=== PATIENT | male | born 1995 | race Caucasian/White ===

== ENCOUNTER 2022-11-20 08:42 | Observation (INO) ==
[2022-11-20 11:37] LABS: INR 1.1 (0.9-1.1); Partial Thromboplastin Time 28.8 Seconds (21.0-31.0); Prothrombin Time 11.9 Seconds (9.0-12.0)
[2022-11-20 11:38] LABS: Chloride 104 mmol/L (98-107); Potassium 4.1 mmol/L (3.5-5.1); Sodium 138 mmol/L (136-145)
[2022-11-20 11:39] LABS: Anion Gap 6 (3-11); Blood Urea Nitrogen 19 mg/dl (6-23); Calcium 9.2 mg/dl (8.5-10.1); Carbon Dioxide 28 mmol/L (21-32); Est GFR (African American) 134.9 ml/min; Est GFR (Non-African American) 116.4 ml/min; Glucose 85 mg/dl (70-99(Fasting)); Magnesium 1.9 mg/dl (1.7-2.4); Phosphorus 3.1 mg/dl (2.5-4.9)
[2022-11-20 11:40] LABS: Alanine Aminotransferase 11 U/L (7-52); Albumin Globulin Ratio 1.3 (0.9-2); Albumin Level 4.4 gm/dl (3.4-5.0); Aspartate Aminotransferase 17 U/L (13-39); Bilirubin,Total 0.4 mg/dl (0.2-1.0); Globulin 3.4 gm/dl (2.5-4.0); Total Protein 7.8 gm/dl (6.0-8.3); Troponin I High Sensitivity 4.9 pg/ml (0-20)
[2022-11-20 11:41] LABS: Alkaline Phosphatase 45 U/L (34-104)
--- NOTE | 2022-11-20 11:49 | XRay Report ---
XR chest 1V portable CLINICAL HISTORY: Chest pain. COMPARISON STUDY: Chest CT August 15, 2022. FINDINGS: No pneumothorax or pleural effusion is present. No consolidation. No evidence for pulmonary edema. There are median sternotomy wires. There has been interval enlargement of the cardiac silhoue tte chest CT of August 15, 2022. IMPRESSION: 1. Interval enlargement of the cardiac silhouette since chest CT August 15, 2022. While this could b e due to cardiomegaly, a pericardial effusion cannot be excluded by radiography. 2. No evidence for pulmonary edema. ACT 112: Negative or not required by law. Electronically signed by: Filiberto Ribeiro M.D. 11/20/2022 10:06 AM
[2022-11-20 11:55] LABS: Basophils # (auto) 0.02 K/uL (0-0.2); Basophils % (auto) 0.5 %; Eosinophils # (auto) 0.03 K/uL (0-0.50); Eosinophils % (auto) 0.7 %; Hematocrit (blood only) 43.2 % (40.1-51.0); Hemoglobin 14.4 g/dl (14.0-18.0); Lymphocytes # (auto) 1.46 K/uL (1.2-3.4); Mean Corpuscular Hemoglobin 27.8 pg (25.0-34.0); Mean Corpuscular Hgb Conc 33.3 g/dL (32.0-36.0); Mean Corpuscular Volume 83.4 fL (80.0-100.0); Mean Platelet Volume 11.1 fL (9.4-12.4); Monocytes # (auto) 0.44 K/uL (0.24-0.82); Neutrophils # (auto) 2.47 K/uL (1.4-6.5); Neutrophils % (auto) 55.8 %; Platelet Count 180 K/uL (130-400); RDW Coefficient of Variation 13.2 % (11.5-14.5); RDW Standard Deviation 40.1 fL (36.4-46.3); Red Blood Count 5.18 M/uL (4.63-6.08); White Blood Count 4.42 K/ul (4.8-10.8)
[2022-11-20 12:14] LABS: C Reactive Protein 0.78 mg/dl (0-0.5)
--- NOTE | 2022-11-20 12:40 | Emergency Department Note ---
Impression & Plan Pericardial effusion, Near syncope, Status post ascending aortic aneurysm repair ED Provider Note NAME: CHARLENE MCMAHON AGE: 27 SEX: M ARRIVES VIA: Walk-In INFORMANT: Patient ED PROVIDER(S): Ulises Peck MD CHIEF COMPLAINT: Syncope, pericardial effusion, referred. PLAN: Disposition: Admit MEDICAL DECISION MAKING: The patient is a pleasant 27-year-old gentleman with a past medical history of aortic root replacement and repair August 07, 2022 for massive ascending aortic aneurysm who presents to the emergency department referred from his [facility] cardiology office, by Dr. Soriano, after having outpatient echo demonstrating large circumferential pericardial effusion greater than 2 cm with hemodynamic significance. The patient's echo was ordered in the setting of the patient having intermittent episodes of sharp left shoulder pain and occasional pain with inspiration and did have a brief near syncopal episode few days ago. He denies any recent cough, congestion, fevers, chills, GI or symptoms. He denies feeling dizzy today. He denies chest pain at this time. Of note, the patient arrives to the emergency department during an unscheduled [facility] outage. On arrival the patient is no acute distress, afebrile with stable vital signs. He has no JVD. EKG without overt acute ischemia. Chest x-ray demonstrates interval cardiomegaly compared to August 15, 2022. I did perform a limited bedside cardiac ultrasound and circumferential pericardial effusion with hemodynamic significance is seen. No overt RV diastolic collapse. Lab work via downtime process pending. Case was discussed with Dr. Wetzel, interventional cardiology on-call who evaluated the patient at the bedside and reviewed limited ED US images. Also, discussed the case with Dr. Lopez who was made aware of the patient's case by Dr. Soriano and discussed plan with Dr. Wetzel. We will proceed with admission to hospitalist service for further management and likely drainage of pericardial effusion in the Managing Manager today. Patient agrees with plan. Case was discussed with Diamond MAJOR with Dr. Saeed, [facility] hospitalist, who will evaluate the patient for admission. WBC 4.4K nonspecific. H/H and platelets within normal limits. Chemistry withou t metabolic acidosis. Electrolytes and LFTs without significant abnormality. High-sensitivity troponin 4.9, within normal limits. ESR and CRP ordered by admitting team mildly elevated at 34 and 70, respectively. Lyme screen was positive for IgM antibody. Further management per admitting team. Triage Nursing notes reviewed and agree them. Prior/Outside medical records reviewed Vital Signs: reviewed Differential diagnosis: Vasovagal event, dehydration, infection, hypoglycemia, electrolyte abnormalities, cardiac sources, intracerebral event, pulmonary embolism, seizure, toxicologic, neurologic, as well as other pathologies. ER treatment provided: See below. Diagnostics interpreted by me: ECG: Normal sinus rhythm, 71 bpm, no ectopy, incomplete right bundle branch block, specific abnormality, no overt ST elevation or depression, QTC 434, QRS 108. Cardiac Monitoring: An order for continuous cardiac monitoring was placed and demonstrated Normal sinus rhythm, 71 bpm, no ectopy. Laboratory studies: See below Imaging studies: See below Consultation(s): Dr. Wetzel, [place] interventional cardiology on-call. Dr. Lopez, [facility] cardiology on-call. Diamond Mccray [facility] PEDRITO with Dr. Saeed, [facility] hospitalist HPI: The patient is a pleasant 27-year-old gentleman with a past medical history of aortic root replacement and repair August 07, 2022 for massive ascending aortic aneurysm who presents to the emergency department referred from his [facility] cardiology office, by Dr. Soriano, after having outpatient echo demonstrating large circumferential pericardial effusion greater than 2 cm with hemodynamic significance. The patient's echo was ordered in the setting of the patient having intermittent episodes of sharp left shoulder pain and occasional pain with inspiration and did have a brief near syncopal episode few days ago. He denies any recent cough, congestion, fevers, chills, GI or symptoms. He denies feeling dizzy today. He denies chest pain at this time. ROS: See above HPI for pertinent positives & negatives. A total of 10 systems reviewed and were otherwise negative. VITALS:See Below PHYSICAL EXAMINATION: GENERAL: Awake, alert, well-appearing, in no distress HENT: Normocephalic, atraumatic. Oropharynx unremarkable. EYES: Normal conjunctiva. Sclera non-icteric. NECK: Supple. No nuchal rigidity. FROM. No JVD. RESPIRATORY: Clear to auscultation. CARDIAC: Regular rate, normal rhythm. Extremities warm and well perfused. Pulses equal. ABDOMEN: Soft, non-distended. No tenderness to palpation. No rebound or guarding. No masses. RECTAL: Deferred. MUSCULOSKELETAL: Chest examination reveals no tenderness. The back is symmetrical on inspection without obvious abnormality. There is no CVA tendernes s to palpation. No joint edema. LOWER EXTREMITIES: Calves are equal size bilaterally and non-tender. No edema. No discoloration. NEURO: Normal sensorium. No sensory or motor deficits noted. SKIN: No rash or jaundice noted. Ulises Peck MD Past Med/Surg History Medical History Aneurysm of thoracic aorta Surgical History Status post ascending aortic aneurysm repair Aortic valve sparing aortic root replacement and repair (08/07/2022) [place] [facility] [place] 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 Other Information That Helps Us Care for You: No Feels Safe at Home: Yes Safety Concerns: Feels Safe At This Time Assistive Devices: None Allergies Allergies Allergy/AdvReac Type Severity Reaction Status Date / Time No Known Allergies Allergy Unverified 11/20/22 11:31 Home Meds Home Medications Medication Instructions Recorded Confirmed acetaminophen 500 mg tablet 1,000 mg PO Q8 PRN Pain 11/20/22 11/20/22 (Tylenol Extra Strength) aspirin 81 mg chewable tablet 81 mg PO DAILY 11/20/22 11/20/22 ferrous sulfate 325 mg (65 mg 325 mg PO DAILY 11/20/22 11/20/22 iron) tablet (iron) metoprolol succinate 25 mg 12.5 mg PO DAILY 11/20/22 11/20/22 tablet,extended release 24 hr Results & Data (ED) Laboratory Data Attestation: I reviewed the patient's lab results. 11/20/22 09:40 11/20/22 09:40 Lab Results 11/20/22 11/20/22 11/20/22 Range/Units 09:40 09:40 09:40 WBC 4.42 L (4.8-10.8) K/ul RBC 5.18 (4.63-6.08) M/uL Hgb 14.4 (14.0-18.0) g/dl Hct 43.2 (40.1-51.0) % MCV 83.4 (80.0-100.0) fL MCH 27.8 (25.0-34.0) pg MCHC 33.3 (32.0-36.0) g/dL RDW Std Deviation 40.1 (36.4-46.3) fL RDW Coeff of Juany 13.2 (11.5-14.5) % Plt Count 180 (130-400) K/uL MPV 11.1 (9.4-12.4) fL Immature Gran % (Auto) 0.0 % Neut % (Auto) 55.8 % Lymph % (Auto) 33.0 % [place] % (Auto) 10.0 % Eos % (Auto) 0.7 % Baso % (Auto) 0.5 % Neut # (Auto) 2.47 (1.4-6.5) K/uL Lymph # (Auto) 1.46 (1.2-3.4) K/uL [place] # (Auto) 0.44 (0.24-0.82) K/uL Eos # (Auto) 0.03 (0-0.50) K/uL Baso # (Auto) 0.02 (0-0.2) K/uL Immature Gran # (Auto) 0.00 (0.00-0.02) K/uL ESR (0-15) mm/hr PT 11.9 (9.0-12.0) Seconds INR 1.1 (0.9-1.1) APTT 28.8 (21.0-31.0) Seconds PTT Ratio 1.0 Sodium 138 (136-145) mmol/L Potassium 4.1 (3.5-5.1) mmol/L Chloride 104 (98-107) mmol/L Carbon Dioxide 28 (21-32) mmol/L Anion Gap 6 (3-11) BUN 19 (6-23) mg/dl Creatinine 0.89 (0.6-1.4) mg/dl Est Cr Clr Drug Dosing Not Reportable Est GFR ( Amer) 134.9 ml/min Est GFR (Non-Af Amer) 116.4 ml/min BUN/Creatinine Ratio 21.0 H (10-20) Glucose 85 (70-99(Fasting)) mg/dl Calcium 9.2 (8.5-10.1) mg/dl Phosphorus 3.1 (2.5-4.9) mg/dl Magnesium 1.9 (1.7-2.4) mg/dl Total Bilirubin 0.4 (0.2-1.0) mg/dl AST 17 (13-39) U/L ALT 11 (7-52) U/L Alkaline Phosphatase 45 (34-104) U/L Troponin I High Sens 4.9 (0-20) pg/ml C-Reactive Protein 0.78 H (0-0.5) mg/dl Total Protein 7.8 (6.0-8.3) gm/dl Albumin 4.4 (3.4-5.0) gm/dl Globulin 3.4 (2.5-4.0) gm/dl Albumin/Globulin Ratio 1.3 (0.9-2) Lyme Disease IgG Ab (Negative) Lyme Disease IgM Ab (Negative) SARS-CoV-2, RNA, NAAT (NEGATIVE) 11/20/22 11/20/22 11/20/22 Range/Units 09:40 10:52 11:28 WBC (4.8-10.8) K/ul RBC (4.63-6.08) M/uL Hgb (14.0-18.0) g/dl Hct (40.1-51.0) % MCV (80.0-100.0) fL MCH (25.0-34.0) pg MCHC (32.0-36.0) g/dL RDW Std Deviation (36.4-46.3) fL RDW Coeff of Juany (11.5-14.5) % Plt Count (130-400) K/uL MPV (9.4-12.4) fL Immature Gran % (Auto) % Neut % (Auto) % Lymph % (Auto) % [place] % (Auto) % Eos % (Auto) % Baso % (Auto) % Neut # (Auto) (1.4-6.5) K/uL Lymph # (Auto) (1.2-3.4) K/uL [place] # (Auto) (0.24-0.82) K/uL Eos # (Auto) (0-0.50) K/uL Baso # (Auto) (0-0.2) K/uL Immature Gran # (Auto) (0.00-0.02) K/uL ESR 34 H (0-15) mm/hr PT (9.0-12.0) Seconds INR (0.9-1.1) APTT (21.0-31.0) Seconds PTT Ratio Sodium (136-145) mmol/L Potassium (3.5-5.1) mmol/L Chloride (98-107) mmol/L Carbon Dioxide (21-32) mmol/L Anion Gap (3-11) BUN (6-23) mg/dl Creatinine (0.6-1.4) mg/dl Est Cr Clr Drug Dosing Est GFR ( Amer) ml/min Est GFR (Non-Af Amer) ml/min BUN/Creatinine Ratio (10-20) Glucose (70-99(Fasting)) mg/dl Calcium (8.5-10.1) mg/dl Phosphorus (2.5-4.9) mg/dl Magnesium (1.7-2.4) mg/dl Total Bilirubin (0.2-1.0) mg/dl AST (13-39) U/L ALT (7-52) U/L Alkaline Phosphatase (34-104) U/L Troponin I High Sens (0-20) pg/ml C-Reactive Protein (0-0.5) mg/dl Total Protein (6.0-8.3) gm/dl Albumin (3.4-5.0) gm/dl Globulin (2.5-4.0) gm/dl Albumin/Globulin Ratio (0.9-2) Lyme Disease IgG Ab Negative (Negative) Lyme Disease IgM Ab Positive A (Negative) SARS-CoV-2, RNA, NAAT NEGATIVE (NEGATIVE) Administered Medications Acetaminophen (Acetaminophen 500 Mg Tab) 1,000 mg PO Q8H PRN PRN Reason: mild pain Stop: 12/20/22 15:37 Last Admin: 11/20/22 15:43 Dose: 1,000 mg Documented By: TNB Imaging Data Radiologist's Impression: Chest X-Ray 11/20/22 00:00 XR chest 1V portable CLINICAL HISTORY: Chest pain. COMPARISON STUDY: Chest CT August 15, 2022. FINDINGS: No pneumothorax or pleural effusion is present. No consolidation. No evidence for pulmonary edema. There are median sternotomy wires. There has been interval enlargement of the cardiac silhouette chest CT of August 15, 2022. IMPRESSION: 1. Interval enlargement of the cardiac silhouette since chest CT August 15, 2022. While this could be due to cardiomegaly, a pericardial effusion cannot be excluded by radiography. 2. No evidence for pulmonary edema. ACT 112: Negative or not required by law. Electronically signed by: Filiberto Ribeiro M.D. 11/20/2022 10:06 AM Discharge Plan Visit Data Chief Complaint: Referred by Doctor Stated Complaint: REF BY BHARATER, FLUID AROUND HEART ED Provider: Ulises Peck Discharge Problem: Pericardial effusion, Near syncope, Status post ascending aortic aneurysm repair Patient Disposition: Admitted As Inpatient Discharge Instructions Interventions: ED Discharge Assessment Last Done: 11/20/22 13:50
--- NOTE | 2022-11-20 12:59 | History & Physical Report ---
Date of Service November 20, 2022 Assessment & Plan (1) Pericardial effusion: (2) Status post ascending aortic aneurysm repair: Plan: Admit to telemetry Patient presenting by referral of outpatient cardiology after echocardiogram showed a large circumferential pericardial effusion greater than 2 cm with hemodynamic significance. In the ED, patient is hemodynamically stable. History of ascending aortic aneurysm s/p sparing aortic root replacement and repair on 08/07/2022 Mildly elevated ESR and CRP, labs otherwise unremarkable Patient reports cold-like symptoms a few days ago, ? Viral contribution. Will also check Lyme titer Case discussed with Dr. Lopez who [place] the [place] [facility] [place] PROPHYLAXIS SCDs I spent a total of 45 minutes coordinating, documenting, and providing care for this patient excluding time spent in the performance of separately billed services. This included personally reviewing all current laboratories and imaging studies, medication reconciliation, outpatient chart review, and discussion with specialists. History of Present Illness Chief Complaint: Referred by cardiology for pericardial effusion Primary Care Provider: Lavelle Izquierdo MD 27-year-old male with PMH ascending aortic root aneurysm s/p aortic valve spa ring aortic root replacement and repair on 08/07/2022 who presents the ED by referral of outpatient cardiology for pericardial effusion. Patient reports that he has been doing well since his surgery. He has since returned to work. Patient reports cold-like symptoms a few weeks ago that have since resolved. Patient reports he has been having an intermittent dull left-sided chest pain. Denies any specific causative or alleviating factors. Reports that while he was at the gym last week, he had an episode where his heart was thumping for a few minutes. He reports a separate episode when he was standing talking to coworkers and he had a near syncopal event. Patient was referred for outpatient echocardiogram today that showed a large circumferential pericardial effusion greater than 2 cm with hemodynamic significance. Patient denies fevers and chills. No abdominal pain, nausea, vomiting, diarrhea. Denies urinary symptoms. In the ED, patient is hemodynamically stable. Labs show a mildly elevated CRP and ESR, otherwise unremarkable. Allergies Allergy/AdvReac Type Severity Reaction Status Date / Time No Known Allergies Allergy Unverified 11/20/22 11:31 Home Medications Medication Instructions Recorded Confirmed Type acetaminophen 500 mg tablet 1,000 mg PO Q8 PRN Pain 11/20/22 11/20/22 History (Tylenol Extra Strength) aspirin 81 mg chewable tablet 81 mg PO DAILY 11/20/22 11/20/22 History ferrous sulfate 325 mg (65 mg 325 mg PO DAILY 11/20/22 11/20/22 History iron) tablet (iron) metoprolol succinate 25 mg 12.5 mg PO DAILY 11/20/22 11/20/22 History tablet,extended release 24 hr Past Med/Surg History Medical History Aneurysm of thoracic aorta Surgical History Status post ascending aortic aneurysm repair [place]ortic valve [place] [facility] 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 Other Information That Helps Us Care for You: No Feels Safe at Home: Yes Safety Concerns: Feels Safe At This Time Assistive Devices: None Review of Systems Review of Systems: ROS per HPI, all other systems reviewed and negative Physical Exam Constitutional: WD/WN, vitals as above Eyes: PERRL, conjunctivae normal, anicteric sclerae ENMT: external ear and nose normal, oropharynx normal Respiratory: normal respiratory effort, lungs clear to auscultation Cardiovascular: Rate/Rhythm: regular rate and regular rhythm Vessels: normal peripheral pulses Extremities: no edema Gastrointestinal (Abdomen): normal bowel sounds, soft, nontender, no hepatosplenomegaly Musculoskeletal: no cyanosis or clubbing, extremities motor strength 5/5 Skin: no rashes, warm and dry Neurologic: PERRL, EOMI, accommodation nl, no face palsy, no dysarthria Psychiatric: A+Ox3, euthymic affect Results & Data Results & Data ([facility]) Laboratory Results Short CBC 11/20/22 Range/Units 09:40 WBC 4.42 L (4.8-10.8) K/ul Hgb 14.4 (14.0-18.0) g/dl Hct 43.2 (40.1-51.0) % Plt Count 180 (130-400) K/uL BMP 11/20/22 09:40 Sodium 138 Potassium 4.1 Chloride 104 Carbon Dioxide 28 BUN 19 Creatinine 0.89 Glucose 85 Calcium 9.2 Liver Function 11/20/22 Range/Units 09:40 Total Bilirubin 0.4 (0.2-1.0) mg/dl AST 17 (13-39) U/L ALT 11 (7-52) U/L Alkaline Phosphatase 45 (34-104) U/L Albumin 4.4 (3.4-5.0) gm/dl Diagnostic Findings Chest X-Ray 11/20/22 00:00 XR chest 1V portable CLINICAL HISTORY: Chest pain. COMPARISON STUDY: Chest CT August 15, 2022. FINDINGS: No pneumothorax or pleural effusion is present. No consolidation. No evidence for pulmonary edema. There are median sternotomy wires. There has been interval enlargement of the cardiac silhouette chest CT of August 15, 2022. IMPRESSION: 1. Interval enlargement of the cardiac silhouette since chest CT August 15, 2022. While this could be due to cardiomegaly, a pericardial effusion cannot be excluded by radiography. 2. No evidence for pulmonary edema. ACT 112: Negative or not required by law. Electronically signed by: Filiberto Ribeiro M.D. 11/20/2022 10:06 AM Code Status & VTE Plan VTE Prophylaxis Plan VTE Prophylaxis will be ordered: Yes Supervising Physician Co-Signing Physician Notes Attending addendum: The patient was seen and examined in the emergency room. He has had a syncopal episode on the other day and feels dizzy with ambulation He has a history of ascending aortic aneurysm repair on 08/07/2022 Was sent in from cardiology office with a large medical effusion without significant hemodynamic compromise Denies any chest pain, palpitation or shortness of breath On examination Lying in bed comfortably Hemodynamically stable Chest-clear to auscultate bilateral Heart-S1-S2, regular no murmur appreciated Abdomen-benign Extremities-negative for any edema He is blood counts, EKG and imaging studies reviewed Has significant pericardial effusion with history of ascending aortic aneurysm repair and remains hemodynamically stable Was evaluated by hot stick man in the emergency room He will need to be transferred to tertiary care center tomorrow for pericardiocentesis Agree with assessment and plan as outlined above by Diamond Saeed
[2022-11-20] MEDS ORDERED: ACETAMINOPHEN 325 MG TAB PO PRN (13:49)
[2022-11-20 15:20] LABS: Lyme Ab IgG w/WB Rflx Negative (Negative)
[2022-11-20 15:23] LABS: Lyme Ab IgM w/WB Rflx Positive (Negative)
--- NOTE | 2022-11-20 15:27 | Cardiology Consultation ---
Date of Consultation November 20, 2022 Assessment & Plan (1) Status post ascending aortic aneurysm repair: (2) Pericardial effusion: Plan I spoke with interventional cardiology here at [facility] and they would prefer the patient be transferred to [facility] where he had his original surgery to have the pericardial centesis completed. Those arrangements have been made and we are waiting on a bed. To his current medical regimen and I have added ibuprofen, colchicine and a PPI. Lyme's titer was drawn and is pending. Otherwise the patient is clinically stable. History of Present Illness Attending Physician: Clifford Saeed MD History of Present Illness This is a 27-year-old male patient who in July of last year was having some chest discomfort. An exercise stress echocardiogram was scheduled. When the patient came in for the study the resting echocardiogram indicated an aneurysm of the aortic root and ascending aorta with aortic insufficiency. The aortic aneurysm measured 7.4 cm. The patient was sent immediately to [facility] where he underwent emergent OHS for repair of his thoracic aneurysm while sparing the aortic valve. 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 Over the past 10 days to 2 weeks he describes a viral type illness that he could not shake. He was having some mild chest discomfort and an echocardiogram was ordered. That study was completed early this morning and shows a markedly enlarged pericardial effusion without tamponade. He was referred for admission and pericardial centesis. Allergies Allergy/AdvReac Type Severity Reaction Status Date / Time No Known Allergies Allergy Unverified 11/20/22 11:31 Home Medications Medication Instructions Recorded Confirmed Type acetaminophen 500 mg tablet 1,000 mg PO Q8 PRN Pain 11/20/22 11/20/22 History (Tylenol Extra Strength) aspirin 81 mg chewable tablet 81 mg PO DAILY 11/20/22 11/20/22 History colchicine 0.6 mg tablet (Colcrys) 0.6 mg PO BID #1 tab 11/20/22 Rx doxycycline hyclate 100 mg capsule 100 mg PO BID #1 cap 11/20/22 Rx ferrous sulfate 325 mg (65 mg 325 mg PO DAILY 11/20/22 11/20/22 History iron) tablet (iron) ibuprofen 200 mg tablet 400 mg PO TID #1 tab 11/20/22 Rx metoprolol succinate 25 mg 12.5 mg PO DAILY 11/20/22 11/20/22 History tablet,extended release 24 hr pantoprazole 40 mg tablet,delayed 40 mg PO QAM #1 tab 11/20/22 Rx release Patient History Medical History Aneurysm of thoracic aorta Surgical History Status post ascending aortic aneurysm repair Aortic valve sparing aortic root replacement and repair (08/07/2022) at [facility]. 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 All other 10 point review of systems are negative. Physical Exam Physical Exam: General: no acute distress and stated age Head: normocephalic, no masses, lesions, tenderness or abnormalities Eyes: conjunctiva are pink and non-injected, sclera clear Neck: supple, no adenopathy, no bruits, normal jugular venous pulse, no hepatojugular reflux Chest: normal shape and normal respiratory effort Lungs: clear to auscultation and percussion Cardiac Exam: - regular rate & rhythm, no murmurs gallops or rubs - normal S1, normal S2 Pulses: 2(+) throughout Abdomen: abdomen soft, non-tender, no abnormal masses and no hepatosplenomegaly Musculoskeletal: no gait disturbance, no joint inflammation, no deforming arthritis Extremities: no edema and no cyanosis Neuro: grossly normal exam Results & Data ([facility]) Vital Signs (Past 12 Hours) Vital Signs Temp Pulse Resp BP Pulse Ox O2 Del Method 11/20/22 13:34 36.6 C 68 20 122/86 99 Room Air Laboratory Results Laboratory Results - last 24 hr 11/20/22 11/20/22 11/20/22 09:40 09:40 09:40 WBC 4.42 L RBC 5.18 Hgb 14.4 Hct 43.2 MCV 83.4 MCH 27.8 MCHC 33.3 RDW Std Deviation 40.1 RDW Coeff of [place] 13.2 Plt Count 180 MPV 11.1 Immature Gran % (Auto) 0.0 Neut % (Auto) 55.8 Lymph % (Auto) 33.0 [place] % (Auto) 10.0 Eos % (Auto) 0.7 Baso % (Auto) 0.5 Neut # (Auto) 2.47 Lymph # (Auto) 1.46 [place] # (Auto) 0.44 Eos # (Auto) 0.03 Baso # (Auto) 0.02 Immature Gran # (Auto) 0.00 ESR PT 11.9 INR 1.1 APTT 28.8 PTT Ratio 1.0 Sodium 138 Potassium 4.1 Chloride 104 Carbon Dioxide 28 Anion Gap 6 BUN 19 Creatinine 0.89 Est Cr Clr Drug Dosing Not Reportable Est GFR ( Amer) 134.9 Est GFR (Non-Af Amer) 116.4 BUN/Creatinine Ratio 21.0 H Glucose 85 Calcium 9.2 Phosphorus 3.1 Magnesium 1.9 Total Bilirubin 0.4 AST 17 ALT 11 Alkaline Phosphatase 45 Troponin I High Sens 4.9 C-Reactive Protein 0.78 H Total Protein 7.8 Albumin 4.4 Globulin 3.4 Albumin/Globulin Ratio 1.3 Lyme Disease IgG Ab Lyme IgG (Western Blot) Lyme IgG 18 kDa Band Lyme IgG 23 kDa Band Lyme IgG 28 kDa Band Lyme IgG 30 kDa Band Lyme IgG 39 kDa Band Lyme IgG 41 kDa Band Lyme IgG 45 kDa Band Lyme IgG 58 kDa Band Lyme IgG 66 kDa Band Lyme IgG 93 kDa Band Lyme IgM Ab (WB) Lyme Disease IgM Ab Lyme IgM 23 kDa Band Lyme IgM 39 kDa Band Lyme IgM 41 kDa Band SARS-CoV-2, RNA, NAAT 11/20/22 11/20/22 11/20/22 09:40 10:52 11:28 WBC RBC Hgb Hct MCV MCH MCHC RDW Std Deviation RDW Coeff of [place] Plt Count MPV Immature Gran % (Auto) Neut % (Auto) Lymph % (Auto) [place] % (Auto) Eos % (Auto) Baso % (Auto) Neut # (Auto) Lymph # (Auto) [place] # (Auto) Eos # (Auto) Baso # (Auto) Immature Gran # (Auto) ESR 34 H PT INR APTT PTT Ratio Sodium Potassium Chloride Carbon Dioxide Anion Gap BUN Creatinine Est Cr Clr Drug Dosing Est GFR ( Amer) Est GFR (Non-Af Amer) BUN/Creatinine Ratio Glucose Calcium Phosphorus Magnesium Total Bilirubin AST ALT Alkaline Phosphatase Troponin I High Sens C-Reactive Protein Total Protein Albumin Globulin Albumin/Globulin Ratio Lyme Disease IgG Ab Negative Lyme IgG (Western Blot) Lyme IgG 18 kDa Band Lyme IgG 23 kDa Band Lyme IgG 28 kDa Band Lyme IgG 30 kDa Band Lyme IgG 39 kDa Band Lyme IgG 41 kDa Band Lyme IgG 45 kDa Band Lyme IgG 58 kDa Band Lyme IgG 66 kDa Band Lyme IgG 93 kDa Band Lyme IgM Ab (WB) Lyme Disease IgM Ab Positive A Lyme IgM 23 kDa Band Lyme IgM 39 kDa Band Lyme IgM 41 kDa Band SARS-CoV-2, RNA, NAAT NEGATIVE 11/20/22 11:28 WBC RBC Hgb Hct MCV MCH MCHC RDW Std Deviation RDW Coeff of [place]any Plt Count MPV Immature Gran % (Auto) Neut % (Auto) Lymph % (Auto) [place] % (Auto) Eos % (Auto) Baso % (Auto) Neut # (Auto) Lymph # (Auto) [place] # (Auto) Eos # (Auto) Baso # (Auto) Immature Gran # (Auto) ESR PT INR APTT PTT Ratio Sodium Potassium Chloride Carbon Dioxide Anion Gap BUN Creatinine Est Cr Clr Drug Dosing Est GFR ( Amer) Est GFR (Non-Af Amer) BUN/Creatinine Ratio Glucose Calcium Phosphorus Magnesium Total Bilirubin AST ALT Alkaline Phosphatase Troponin I High Sens C-Reactive Protein Total Protein Albumin Globulin Albumin/Globulin Ratio Lyme Disease IgG Ab Lyme IgG (Western Blot) Pending Lyme IgG 18 kDa Band Pending Lyme IgG 23 kDa Band Pending Lyme IgG 28 kDa Band Pending Lyme IgG 30 kDa Band Pending Lyme IgG 39 kDa Band Pending Lyme IgG 41 kDa Band Pending Lyme IgG 45 kDa Band Pending Lyme IgG 58 kDa Band Pending Lyme IgG 66 kDa Band Pending Lyme IgG 93 kDa Band Pending Lyme IgM Ab (WB) Pending Lyme Disease IgM Ab Lyme IgM 23 kDa Band Pending Lyme IgM 39 kDa Band Pending Lyme IgM 41 kDa Band Pending SARS-CoV-2, RNA, NAAT Medications Administered Current Inpatient Medications Acetaminophen (Acetaminophen 325 Mg Tab) 650 mg PO Q4H PRN PRN Reason: Pain or Fever Stop: 12/20/22 13:48 Colchicine (Colchicine 0.6 Mg Tab) 0.6 mg PO BID [place] Stop: 12/20/22 20:59 Ferrous Sulfate (Ferrous Sulfate 325 Mg Tab) 325 mg PO DAILY [place] Stop: 12/21/22 08:59 Ibuprofen (Ibuprofen 200 Mg Tab) 400 mg PO TID [place] Stop: 12/20/22 20:59 Metoprolol Succinate (Metoprolol Succ 25mg Ext Rel Tab) 12.5 mg PO DAILY [place] Stop: 12/21/22 08:59 Pantoprazole Sodium (Pantoprazole 40 Mg Tab) 40 mg PO QAM [place] Stop: 12/21/22 08:59
[2022-11-20] MEDS ORDERED: ACETAMINOPHEN 500 MG TAB PO PRN (15:38)
--- NOTE | 2022-11-20 17:09 | Discharge Summary ---
Date of Service November 20, 2022 Admission HPI Per Admitting Provider 27-year-old male with PMH ascending aortic root aneurysm s/p aortic valve sparing aortic root replacement and repair on 08/07/2022 who presents the ED by referral of outpatient cardiology for pericardial effusion. Patient reports that he has been doing well since his surgery. He has since returned to work. Patient reports cold-like symptoms a few weeks ago that have since resolved. Patient reports he has been having an intermittent dull left-sided chest pain. Denies any specific causative or alleviating factors. Reports that while he was at the gym last week, he had an episode where his heart was thumping for a few minutes. He reports a separate episode when he was standing talking to coworkers and he had a near syncopal event. Patient was referred for outpatient echocardiogram today that showed a large circumferential pericardial effusion greater than 2 cm with hemodynamic significance. Patient denies fevers and chills. No abdominal pain, nausea, vomiting, diarrhea. Denies urinary symptoms. In the ED, patient is hemodynamically stable. Labs show a mildly elevated CRP and ESR, otherwise unremarkable. Admission Exam Per Admitting Provider Physical Exam Constitutional: WD/WN, vitals as above Eyes: PERRL, conjunctivae normal, anicteric sclerae ENMT: external ear and nose normal, oropharynx normal Respiratory: normal respiratory effort, lungs clear to auscultation Cardiovascular: Rate/Rhythm: regular rate and regular rhythm Vessels: normal peripheral pulses Extremities: no edema Gastrointestinal (Abdomen): normal bowel sounds, soft, nontender, no hepatosplenomegaly Musculoskeletal: no cyanosis or clubbing, extremities motor strength 5/5 Skin: no rashes, warm and dry Neurologic: PERRL, EOMI, accommodation nl, no face palsy, no dysarthria Psychiatric: A+Ox3, euthymic affect Principal Diagnosis Pericardial effusion Discharge Data Allergies Allergy/AdvReac Type Severity Reaction Status Date / Time No Known Allergies Allergy Unverified 11/20/22 11:31 Consultations 11/20/22 13:49 Consult Cardiology Routine Hospital Course (1) Pericardial effusion: (2) Status post ascending aortic aneurysm repair: Patient presenting by referral of outpatient cardiology after echocardiogram showed a large circumferential pericardial effusion greater than 2 cm with hemodynamic significance. In the ED, patient is hemodynamically stable. History of ascending aortic aneurysm s/p sparing aortic root replacement and repair on 08/07/2022 Mildly elevated ESR and CRP, labs otherwise unremarkable Patient reports cold-like symptoms a few days ago, ? Viral contribution. Lyme IgM positive, Western blot pending. Started on doxycycline. Colchicine, ibuprofen, PPI added by cardiology. Interventional cardiology at [facility] recommending transfer to [facility] for further management. Total Time Total Time Spent Total Time Spent (In Minutes): 35 Discharge Plan Discharge Items Patient Disposition: Transfer Acute Care Hospital Reason For Visit: PERICARDIAL EFFUSION Discharge Diagnosis: Pericardial Effusion Activity: Per Instructions section Activity Comment: as per d/c instructions from [facility] Non-emergency contact: Primary Care Provider and Component Lab Tech Call non-emergency contact if: you have any medication questions, your symptoms worsen, your pain is not controlled and you have a fever Follow-up/Referrals: Lavelle Izquierdo MD [Primary Care Provider] - Diet: Heart Healthy Addtl Attending Provider Instructions: transfer to [facility] for treatment of pericardial effusion Pending Studies at Discharge: Yes Studies:: Lyme Western Blot Stand-Alone Forms: My [facility] [employer] Skilled Items Patient informed of condition?: Yes DNR: No Discharge Level of Care: Other Communicable Disease: No Discharge Prognosis: Stable Lines: Peripheral IV Urinary Catheter: No Medications and DC Order Prescriptions: New doxycycline hyclate 100 mg Capsule 100 mg PO BID Qty: 1 0RF ibuprofen 200 mg Tablet 400 mg PO TID Qty: 1 0RF pantoprazole 40 mg Tablet,Delayed Release (Dr/Ec) 40 mg PO QAM Qty: 1 0RF colchicine [Colcrys] 0.6 mg Tablet 0.6 mg PO BID Qty: 1 0RF Continued acetaminophen [Tylenol Extra Strength] 500 mg Tablet 1,000 mg PO Q8 PRN (Reason: Pain) ferrous sulfate [iron] 325 mg (65 mg iron) Tablet 325 mg PO DAILY aspirin 81 mg tablet,chewable 81 mg PO DAILY metoprolol succinate 25 mg tablet extended release 24 hr 12.5 mg PO DAILY Discharge Orders: Discharge Order (Routine); Ordered 11/20/22 Ordered By: Diamond Mccray Admission Data Admit Date/Time: 11/20/22 11:35 Attending Provider: Clifford Saeed Admit Provider: Clifford Saeed Primary Care Provider: Lavelle Izquierdo Other Providers: Clifford Saeed ; John,Ramsey G. Supervising Physician Co-Signing Physician Notes Attending addendum: The patient was seen and examined in the emergency room and the consent for transfer was taken by me in the emergency room. I agree with the discharge summary as documented by Diamond MAJOR. Dr Dennis Saeed
--- NOTE | 2022-11-20 18:02 | Electrocardiogram Report ---
Test Reason : Blood Pressure : / mmHG Vent. Rate : 071 BPM Atrial Rate : 071 BPM P-R Int : 172 ms QRS Dur : 108 ms QT Int : 400 ms P-R-T Axes : 044 -01 027 degrees QTc Int : 434 ms Normal sinus rhythm Low voltage QRS Incomplete right bundle branch block Possible Inferior infarct (cited on or before 20-NOV-2022) Abnormal ECG When compared with ECG of 15-AUG-2022 11:32, Non-specific change in ST segment in Anterior leads T wave inversion no longer evident in Anterior leads Confirmed by Ross Hutton ([id number]) on 11/20/2022 6:02:30 PM Referred By: REFERRED SELF Confirmed By:Alex Hutton
[2022-11-20] MEDS ORDERED: IBUPROFEN 200 MG TAB PO SCH (21:00)
[2022-11-20] MEDS ORDERED: COLCHICINE 0.6 MG TAB PO SCH (21:00)
[2022-11-20] MEDS ORDERED: DOXYCYCLINE HYCLATE 100 MG CAP PO SCH (21:00)
[2022-11-21] MEDS ORDERED: FERROUS SULFATE 325 MG TAB PO SCH (09:00)
[2022-11-21] MEDS ORDERED: PANTOprazole 40 MG TAB PO SCH (09:00)
[2022-11-21] MEDS ORDERED: METOPROLOL SUCC 25MG EXT REL TAB PO SCH (09:00)
[2022-11-23 02:32] LABS: 18KDIGG Band NON-REACTIVE; 23KDIGG Band NON-REACTIVE; 23KDIGM Band NON-REACTIVE; 28KDIGG Band NON-REACTIVE; 30KDIGG Band NON-REACTIVE; 39KDIGG Band NON-REACTIVE; 39KDIGM Band NON-REACTIVE; 41KDIGG Band REACTIVE; 41KDIGM Band NON-REACTIVE; 45KDIGG Band NON-REACTIVE; 58KDIGG Band NON-REACTIVE; 66KDIGG Band NON-REACTIVE; 93KDIGG Band NON-REACTIVE; Lyme Antibodies, WB IgG NEGATIVE (NEGATIVE); Lyme Antibodies, WB IgM NEGATIVE (NEGATIVE)
== END 2022-11-20 17:15 | disposition short-term general hospital (02) ==
LOC: ED 08:42 → INTOOBSV 11:35 → EDINP 11:35

== ENCOUNTER 2025-01-22 04:31 | Observation (INO) ==
--- NOTE | 2025-01-22 04:58 | Emergency Department Note ---
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 Patient denies fever, chills, cough, congestion, injury to the area. No prior heart attack. Home Medications Medication Instructions Recorded Confirmed Type acetaminophen 500 mg tablet 1,000 mg PO DIRECTED PRN Pain 11/20/22 06/01/24 History (Tylenol Extra Strength) aspirin 81 mg chewable tablet 81 mg PO QAM 03/27/23 06/01/24 History cyanocobalamin (vitamin B-12) 1,000 mcg PO QAM 03/27/23 06/01/24 History 1,000 mcg tablet (Vitamin B-12) Allergies Allergy/AdvReac Type Severity Reaction Status Date / Time No Known Allergies Allergy Verified 06/01/24 20:34 Past Med/Surg History Problem List (Updated 01/22/25 @ 05:00 by Kanwal Mclaughlin PA-C) Chest pain (Acute) Near syncope (Acute) Medical History Pericardial effusion Aneurysm of thoracic aorta Surgical History (Updated 11/16/24 @ 15:17 by Siena Salcedo PA-C) Status post ascending aortic aneurysm repair Aortic valve sparing aortic root replacement and repair (08/07/2022) at [facility] [place]. 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 Feels Safe at Home: Yes Assistive Devices: None Review of Systems A total of 10 systems reviewed and were otherwise negative Physical Exam Vital Signs Vital Signs - 24 hr 01/22/25 04:35 01/22/25 04:48 01/22/25 04:56 Temperature 36.5 C Temperature Source Temporal Artery Scan Pulse Rate 68 72 Respiratory Rate 18 Respiratory Effort / Characteristics Non-Labored Spontaneous Respiratory Depth Normal Respiratory Pattern Regular Blood Pressure 132/90 Blood Pressure Mean 104 Pulse Oximetry 99 99 Oxygen Delivery Method Room Air Room Air Sepsis Recent Fever Within 48 Hours No Sepsis New/Unexplained Change in Mental Status N/A Sepsis Action Taken by Nursing No Action Required 01/22/25 04:56 Temperature Temperature Source Pulse Rate Respiratory Rate Respiratory Effort / Characteristics Respiratory Depth Respiratory Pattern Blood Pressure Blood Pressure Mean Pulse Oximetry 99 Oxygen Delivery Method Room Air Sepsis Recent Fever Within 48 Hours Sepsis New/Unexplained Change in Mental Status Sepsis Action Taken by Nursing VITALS: Vitals are noted on the nurse's note and reviewed by myself. Vital signs stable. GENERAL: Pleasant gentleman, in no acute distress, nondiaphoretic, well- developed well-nourished. SKIN: Capillary reflex less than 2 seconds. HEENT: Normocephalic. PERRLA. EOMI. Nares patent. Mucous membranes moist. Neck is supple without nuchal rigidity. HEART: Regular rate and rhythm LUNGS: Clear to auscultation bilaterally without wheezes, rales or rhonchi. No retractions or accessory muscle use. ABDOMEN: Positive bowel sounds x 4. Normal tympanic percussion. Soft, nontender, without masses or organomegaly. Ragsdale sign negative. No guarding or rebound tenderness. no CVA tenderness MUSCULOSKELETAL: No gross musculoskeletal defects. NEURO: Patient was alert and oriented to person place and time. No focal neurological deficits. Course Administered Medications Discontinued Medications Lorazepam (Lorazepam 2 Mg/1 Ml Vial) 1 mg IV NOW STA Stop: 01/22/25 04:51 Last Admin: 01/22/25 05:09 Dose: 1 mg Documented By: SUSAN Medical Decision Making Medical Records Attestation: I reviewed the patient's medical records. Home Medications Current Medication List: was personally reviewed by me Laboratory Data Attestation: I reviewed the patient's lab results. 01/22/25 04:41 01/22/25 04:41 Lab Results 01/22/25 Range/Units 04:41 WBC 3.43 L (4.8-10.8) K/ul RBC 5.01 (4.70-6.10) M/uL Hgb 15.0 (14.0-18.0) g/dl Hct 43.0 (42.0-52.0) % MCV 85.8 (80.0-100.0) fL MCH 29.9 (25.0-34.0) pg MCHC 34.9 (32.0-36.0) g/dL RDW Std Deviation 37.9 (36.4-46.3) fL RDW Coeff of Juany 12.1 (11.5-14.5) % Plt Count 126 L (130-400) K/uL MPV 10.8 (9.4-12.4) fL Immature Gran % (Auto) 0.0 % Neut % (Auto) 37.9 % Lymph % (Auto) 47.2 % Yancey % (Auto) 13.4 % Eos % (Auto) 1.2 % Baso % (Auto) 0.3 % Neut # (Auto) 1.30 L (1.40-6.50) K/uL Lymph # (Auto) 1.62 (1.20-3.40) K/uL Yancey # (Auto) 0.46 (0.11-0.59) K/uL Eos # (Auto) 0.04 (0.00-0.50) K/uL Baso # (Auto) 0.01 (0.00-0.20) K/uL Immature Gran # (Auto) 0.00 L (0.01-0.20) K/uL Sodium 140 (136-145) mmol/L Potassium 3.9 (3.5-5.1) mmol/L Chloride 106 (98-107) mmol/L Carbon Dioxide 31 (21-32) mmol/L Anion Gap 3 (3-11) BUN 20 (6-23) mg/dl Creatinine 0.87 (0.6-1.4) mg/dl Est Cr Clr Drug Dosing 163.0 ml/min eGFR 119.04 BUN/Creatinine Ratio 23.0 H (10-20) Glucose 93 (70-99(Fasting)) mg/dl Calcium 9.2 (8.6-10.3) mg/dl Total Bilirubin 0.4 (0.2-1.0) mg/dl AST 21 (13-39) U/L ALT 17 (7-52) U/L Alkaline Phosphatase 40 (34-104) U/L Troponin I High Sens < 2.3 (0-20) pg/ml Total Protein 7.9 (6.0-8.3) gm/dl Albumin 4.5 (3.4-5.0) gm/dl Globulin 3.4 (2.5-4.0) gm/dl Albumin/Globulin Ratio 1.3 (0.9-2) Lipase 26 (11-82) U/L Imaging Data Attestation: I personally reviewed and interpreted this imaging study as follows: Radiologist's Impression: Chest X-Ray 01/22/25 04:41 EXAM: XR chest 1V portable CLINICAL HISTORY: Left sided chest pain that radiates into shoulder and down left arm. history of aortic aneurysm TECHNIQUE: An X-ray image of the chest is obtained in AP projection. COMPARISON: 11/16/2024. FINDINGS: Pulmonary Parenchyma: Lungs are clear bilaterally. No evidence of consolidation, collapse, or focal opacities. No pulmonary nodules are identified. No evidence of pleural effusion or pleural thickening. Heart and Mediastinum: Heart size and shape are normal. No mediastinal widening or masses. No hilar or mediastinal lymphadenopathy. Bony Thorax: Evidence of previous sternotomy. Soft Tissues: Soft tissues overlying the chest wall are unremarkable. IMPRESSION: 1. Evidence of previous sternotomy. 2. Otherwise, normal chest X-ray. No acute cardiopulmonary abnormalities are identified. 3. No time interval significant radiological changes. Electronically signed by Cali Hammer 01-22-2025 05:28 AM MDM Narrative Prior records/ancillary studies reviewed. Triage Nursing notes reviewed. Additional history obtained from nursing. The patient's history was concerning for chest pain. Differential diagnosis: Etiologies such as cardiac ischemia, aortic dissection, pulmonary embolism, pneumonia, pneumothorax, musculoskeletal, infections, pericarditis, myocarditis, esophageal rupture, gastrointestinal, as well as others were entertained. Physical examination: As above. ER treatment provided: An order was placed for continuous cardiac monitoring. The monitor shows a rate of 60-100 with a sinus rhythm per my interpretation. Ativan was ordered On reassessment the patient felt better. Diagnostic interpretation by me: The electrocardiogram was negative for pathologic change. Ordered for chest pain EKG: Normal sinus, incomplete right bundle, no acute ST-T changes, rate of 65. Impression normal sinus rhythm incomplete right bundle branch block independently interpreted by myself and unchanged from prior The labs Independently Interpreted by myself revealed negative troponin, stable H&H Imaging studies: Chest x-ray with no acute consolidation, pneumothorax or free air per my independent termination HEART SCORE: Hx: high/mod/low suspicion: 0 ECG: ST depression/nonspecific changes/normal: 0 Age: Greater than 65/45-64/less than 45: 0 Risk factors: (Hypertension, hyperlipidemia, diabetes, coronary disease, tobacco use, cocaine use): 0 Troponin: Greater than 2 times normal limits/1-2 times normal limits/normal: 0 Total: 0 Consultation: A consultation was placed with the hospitalist. The case was discussed and diagnostics were reviewed. The patient was evaluated in the ER for further treatment. Exam and history seen consistent with chest pain. Patient would like to be seen by the data collector. Medicine was consulted. He was concerned with his history of aortic aneurysm repair that his pain could be related to this. Medicine will evaluate the patient for possible admission. Negative troponin. Unchanged EKG. Symptoms been ongoing. By the evaluation outlined above emergent etiologies such as aortic dissection, pulmonary embolism, pneumonia, pneumothorax, infections, pericarditis, myocarditis, gastrointestinal, as well as others were deemed relatively unlikely. The pt informed about the findings as listed above. All questions were answered and pleased with the treatment. The chart was completed utilizing [employer] Speech voice recognition software. Grammatical errors, random word insertions, pronoun errors, and incomplete sentences are an occassional consequence of this system due to software limitations, ambient noise, and hardware issues. Any formal questions or concerns about the content, text, or information contained within the body of this dictation should be directly addressed to the physician painter assistant for clarification. Impression & Plan Chest pain Discharge Plan Visit Data Chief Complaint: Cardiac Assessment Stated Complaint: CHEST TIGHTNESS,L SHOULDER PAIN/NUMB,HEADACHE ED Provider: Carol Ruiz ED Midlevel Provider: Kanwal Mclaughlin Discharge Problem: Chest pain Patient Disposition: Being Evaluated by Hospitalist Condition: Good Discharge Instructions Krames/Other Patient Handouts: ED Chest Pain, Uncertain Cause Activity Restrictions/Additional Instructions: Forms Stand Alone Forms: Work/School Release (ED), Important Visit Information Prescriptions Prescriptions: No Action acetaminophen [Tylenol Extra Strength] 500 mg Tablet 1,000 mg PO DIRECTED PRN (Reason: Pain) cyanocobalamin (vitamin B-12) [Vitamin B-12] 1,000 mcg Tablet 1,000 mcg PO QAM aspirin 81 mg tablet,chewable 81 mg PO QAM Referrals Referrals: Lavelle Izquierdo MD [Primary Care Provider] - Discharge Problem: Chest pain Qualifiers: Chest pain type: unspecified Qualified Code(s): R07.9 - Chest pain, unspecified
[2025-01-22] MEDS: LORazepam 2 MG/1 ML VIAL IV STA (05:09)
[2025-01-22 05:11] LABS: Basophils # (auto) 0.01 K/uL (0.00-0.20); Basophils % (auto) 0.3 %; Eosinophils # (auto) 0.04 K/uL (0.00-0.50); Eosinophils % (auto) 1.2 %; Lymphocytes # (auto) 1.62 K/uL (1.20-3.40); Lymphocytes % (auto) 47.2 %; Mean Corpuscular Hemoglobin 29.9 pg (25.0-34.0); Mean Corpuscular Hgb Conc 34.9 g/dL (32.0-36.0); Mean Corpuscular Volume 85.8 fL (80.0-100.0); Mean Platelet Volume 10.8 fL (9.4-12.4); Monocytes # (auto) 0.46 K/uL (0.11-0.59); Monocytes % (auto) 13.4 %; Neutrophils % (auto) 37.9 %; Platelet Count 126 K/uL (130-400); RDW Coefficient of Variation 12.1 % (11.5-14.5); RDW Standard Deviation 37.9 fL (36.4-46.3); Red Blood Count 5.01 M/uL (4.70-6.10); White Blood Count 3.43 K/ul (4.8-10.8)
[2025-01-22 05:17] LABS: Alanine Aminotransferase 17 U/L (7-52); Albumin Globulin Ratio 1.3 (0.9-2); Albumin Level 4.5 gm/dl (3.4-5.0); Alkaline Phosphatase 40 U/L (34-104); Anion Gap 3 (3-11); Aspartate Aminotransferase 21 U/L (13-39); Bilirubin,Total 0.4 mg/dl (0.2-1.0); Blood Urea Nitrogen 20 mg/dl (6-23); Calcium 9.2 mg/dl (8.6-10.3); Carbon Dioxide 31 mmol/L (21-32); Chloride 106 mmol/L (98-107); Globulin 3.4 gm/dl (2.5-4.0); Glucose 93 mg/dl (70-99(Fasting)); Lipase 26 U/L (11-82); Potassium 3.9 mmol/L (3.5-5.1); Sodium 140 mmol/L (136-145); Total Protein 7.9 gm/dl (6.0-8.3)
[2025-01-22 05:24] LABS: Troponin I High Sensitivity < 2.3 pg/ml (0-20)
--- NOTE | 2025-01-22 05:28 | XRay Report ---
EXAM: XR chest 1V portable CLINICAL HISTORY: Left sided chest pain that radiates into shoulder and down left arm. history of aortic aneurysm TECHNIQUE: An X-ray image of the chest is obtained in AP projection. COMPARISON: 11/16/2024. FINDINGS: Pulmonary Parenchyma: Lungs are clear bilaterally. No evidence of consolidation, collapse, or focal opacities. No pulmonary nodules are identified. No evidence of pleural effusion or pleural thickening. Heart and Mediastinum: Heart size and shape are normal. No mediastinal widening or masses. No hilar or mediastinal lymphadenopathy. Bony Thorax: Evidence of previous sternotomy. Soft Tissues: Soft tissues overlying the chest wall are unremarkable. IMPRESSION: 1. Evidence of previous sternotomy. 2. Otherwise, normal chest X-ray. No acute cardiopulmonary abnormalities are identified. 3. No time interval significant radiological changes. Electronically signed by Cali Hammer 01-22-2025 05:28 AM
--- NOTE | 2025-01-22 06:38 | History & Physical Report ---
Date of Service January 22, 2025 Assessment & Plan (1) Chest pain: Plan: 29-year-old male with past medical history significant for SVT, GERD, history of aortic root repair, history of pericarditis, chronic atypical chest pain, history of intermittent dizziness/presyncope comes with chest pain. Patient states having chest tightness going on for last 2 weeks but getting more progressively worse. The chest tightness located in center of chest and radiate to the left arm. Sometimes in the morning he gets up with numbness in left hand but that improves after some time. The chest tightness seems to come on its own but sometimes it comes with rigorous activity. Has some blurred visions. Denies any shortness of breath. No nausea. No sweating. No cough. No runny nose or sore throat. Afebrile. Currently no headache. Appetite is okay. No abdominal pain. Normal bowel and bladder movements. Currently resting comfortably and hemodynamically stable. Chest pain Initial troponin and EKG unremarkable Will follow serial enzymes and echo and repeat ekg Observe on telemetry Continue home aspirin Cardiac consult in a.m. for further recommendations History of ascending aortic aneurysm 7.4 cm with dilated aortic root Status post valve sparing surgery with aortic root and ascending aortic aneurysm repair in July 2022. History of viral pericarditis requiring pericardiocentesis several weeks after surgery without recurrence History of paroxysmal SVT History of sinus bradycardia and intolerant to beta-blockers Will monitor Thrombocytopenia Platelets 126 Platelets seems usually in 130s and 140 range Follow-up Leukopenia Seems chronic follow-up DVT prophylaxis SCDs Disposition Observation med/telemetry Full code. History of Present Illness Chief Complaint: Chest pain Primary Care Provider: Lavelle Izquierdo MD 29-year-old male with past medical history significant for SVT, GERD, history of aortic root repair, history of pericarditis, chronic atypical chest pain, history of intermittent dizziness/presyncope comes with chest pain. Patient states having chest tightness going on for last 2 weeks but getting more progressively worse. The chest tightness located in center of chest and radiate to the left arm. Sometimes in the morning he gets up with numbness in left hand but that improves after some time. The chest tightness seems to come on its own but sometimes it comes with rigorous activity. Has some blurred visions. Denies any shortness of breath. No nausea. No sweating. No cough. No runny nose or sore throat. Afebrile. Currently no headache. Appetite is okay. No abdominal pain. Normal bowel and bladder movements. Currently resting comfo rtably and hemodynamically stable. Past medical history. As mentioned above Past surgical history. Ascending aortic graft with cardiac bypass. Partial mastectomy on right side. Pericardiocentesis. Tonsillectomy and adenoidectomy. Social history. . Chews tobacco. Alcohol once a month or so. No drug use. Family history. No known problems per epic Allergies Allergy/AdvReac Type Severity Reaction Status Date / Time No Known Allergies Allergy Verified 06/01/24 20:34 Home Medications Medication Instructions Recorded Confirmed Type aspirin 81 mg tablet,delayed 81 mg PO DAILY 01/22/25 01/22/25 History release multivitamin with minerals 1 tab PO DAILY 01/22/25 01/22/25 History Past Med/Surg History Problem List (Updated 01/22/25 @ 05:00 by Kanwal Mclaughlin PA-C) Chest pain (Acute) Near syncope (Acute) Medical History Pericardial effusion Aneurysm of thoracic aorta Surgical History (Updated 11/16/24 @ 15:17 by Siena Salcedo PA-C) Status post ascending aortic aneurysm repair Aortic valve sparing aortic root replacement and repair (08/07/2022[place] [facility] [place] 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 ENT- oropharynx clear Neck- supple, no JVD. Lungs- clear to auscultation no wheezing or crackles Heart- regular rate and rhythm; no murmur, no gallop. Abdomen- normal bowel sounds, soft, nontender, no distension Extremities- no pretibial edema, no erythema seen Neuro- alert, oriented PERRL, no facial palsy; no dysarthria; moves extremities Results & Data Results & Data Vital Signs (Past 12 Hours) Vital Signs Temp Pulse Resp BP Pulse Ox O2 Del Method 01/22/25 04:56 99 Room Air 01/22/25 04:56 99 Room Air 01/22/25 04:48 72 01/22/25 04:35 36.5 C 68 18 132/90 99 Room Air Diagnostic Findings Laboratory Results WBC 3.43 K/ul (4.8-10.8) L 01/22/25 04:41 RBC 5.01 M/uL (4.70-6.10) 01/22/25 04:41 Hgb 15.0 g/dl (14.0-18.0) 01/22/25 04:41 Hct 43.0 % (42.0-52.0) 01/22/25 04:41 MCV 85.8 fL (80.0-100.0) 01/22/25 04:41 MCH 29.9 pg (25.0-34.0) 01/22/25 04:41 MCHC 34.9 g/dL (32.0-36.0) 01/22/25 04:41 RDW Std Deviation 37.9 fL (36.4-46.3) 01/22/25 04:41 RDW Coeff of Juany 12.1 % (11.5-14.5) 01/22/25 04:41 Plt Count 126 K/uL (130-400) L 01/22/25 04:41 MPV 10.8 fL (9.4-12.4) 01/22/25 04:41 Immature Gran % (Auto) 0.0 % 01/22/25 04:41 Neut % (Auto) 37.9 % 01/22/25 04:41 Lymph % (Auto) 47.2 % 01/22/25 04:41 [place]oke % (Auto) 13.4 % 01/22/25 04:41 Eos % (Auto) 1.2 % 01/22/25 04:41 Baso % (Auto) 0.3 % 01/22/25 04:41 Neut # (Auto) 1.30 K/uL (1.40-6.50) L 01/22/25 04:41 Lymph # (Auto) 1.62 K/uL (1.20-3.40) 01/22/25 04:41 [place]oke # (Auto) 0.46 K/uL (0.11-0.59) 01/22/25 04:41 Eos # (Auto) 0.04 K/uL (0.00-0.50) 01/22/25 04:41 Baso # (Auto) 0.01 K/uL (0.00-0.20) 01/22/25 04:41 Immature Gran # (Auto) 0.00 K/uL (0.01-0.20) L 01/22/25 04:41 Sodium 140 mmol/L (136-145) 01/22/25 04:41 Potassium 3.9 mmol/L (3.5-5.1) 01/22/25 04:41 Chloride 106 mmol/L (98-107) 01/22/25 04:41 Carbon Dioxide 31 mmol/L (21-32) 01/22/25 04:41 Anion Gap 3 (3-11) 01/22/25 04:41 BUN 20 mg/dl (6-23) 01/22/25 04:41 Creatinine 0.87 mg/dl (0.6-1.4) 01/22/25 04:41 Est Cr Clr Drug Dosing 163.0 ml/min 01/22/25 04:41 eGFR 119.04 01/22/25 04:41 BUN/Creatinine Ratio 23.0 (10-20) H 01/22/25 04:41 Glucose 93 mg/dl (70-99(Fasting)) 01/22/25 04:41 Calcium 9.2 mg/dl (8.6-10.3) 01/22/25 04:41 Total Bilirubin 0.4 mg/dl (0.2-1.0) 01/22/25 04:41 AST 21 U/L (13-39) 01/22/25 04:41 ALT 17 U/L (7-52) 01/22/25 04:41 Alkaline Phosphatase 40 U/L (34-104) 01/22/25 04:41 Troponin I High Sens < 2.3 pg/ml (0-20) 01/22/25 04:41 Total Protein 7.9 gm/dl (6.0-8.3) 01/22/25 04:41 Albumin 4.5 gm/dl (3.4-5.0) 01/22/25 04:41 Globulin 3.4 gm/dl (2.5-4.0) 01/22/25 04:41 Albumin/Globulin Ratio 1.3 (0.9-2) 01/22/25 04:41 Lipase 26 U/L (11-82) 01/22/25 04:41 Impressions Chest X-Ray 01/22/25 04:41 EXAM: XR chest 1V portable CLINICAL HISTORY: Left sided chest pain that radiates into shoulder and down left arm. history of aortic aneurysm TECHNIQUE: An X-ray image of the chest is obtained in AP projection. COMPARISON: 11/16/2024. FINDINGS: Pulmonary Parenchyma: Lungs are clear bilaterally. No evidence of consolidation, collapse, or focal opacities. No pulmonary nodules are identified. No evidence of pleural effusion or pleural thickening. Heart and Mediastinum: Heart size and shape are normal. No mediastinal widening or masses. No hilar or mediastinal lymphadenopathy. Bony Thorax: Evidence of previous sternotomy. Soft Tissues: Soft tissues overlying the chest wall are unremarkable. IMPRESSION: 1. Evidence of previous sternotomy. 2. Otherwise, normal chest X-ray. No acute cardiopulmonary abnormalities are identified. 3. No time interval significant radiological changes. Electronically signed by Cali Hammer 01-22-2025 05:28 AM ECG Additional Comments: ECG. Normal sinus rhythm rate of 65. Incomplete right bundle branch block. No significant changes found. QTc 405 Code Status & VTE Plan VTE Prophylaxis Plan VTE Prophylaxis will be ordered: Yes (1) Chest pain Chest pain type: unspecified Qualified Code(s): R07.9 - Chest pain, unspecified
[2025-01-22] MEDS ORDERED: POLYETHYLENE (MIRALAX) 17 GM PACK PO PRN (08:02)
[2025-01-22] MEDS ORDERED: ACETAMINOPHEN 325 MG TAB PO PRN (08:02)
[2025-01-22] MEDS ORDERED: NITROGLYCERIN SL 0.4 MG/TAB TAB SL PRN (08:02)
[2025-01-22] MEDS: LORazepam 0.5 MG TAB PO STA (08:30)
[2025-01-22] MEDS: CEROVITE ADV FORMULA TAB PO SCH (08:37)
[2025-01-22] MEDS: ASPIRIN 81 MG ECTAB PO SCH (08:37)
--- NOTE | 2025-01-22 08:41 | Cardiology Consultation ---
Date of Consultation January 22, 2025 Assessment & Plan (1) Chest pain: Assessment: 29 year old male with history of a chronic atypical chest pain and aortic aneurysm valve sparing repair (2021) that presents with chest pain. Cardiology requested for evaluation Plan: 1. Chest pain -Persistent, varying in intensity. Atypical -Negative stress echo one year ago, EKG with no acute changes. Troponin negative x2. Recent ZIO with no acute findings. -Telemetry shows no acute findings. -most recent CTA chest 12/05/2024 pulled from outside facility with no acute findings. -Echocardiogram pending to assess for any wall motion abnormalities, and concerns of aorta sizing changes, and for any evidence of pericardial effusion -VS stable -will discuss case with Dr. Sumner given recent negative CT scans at [facility]. Will discuss if consideration of an OP cardiac CT is appropriate for completeness given his ongoing symptoms. Case has been discussed with Dr. Sumner. Further recommendations regarding plan of care as per his assessment. I spent a total of 40 minutes on the date of service in preparation, delivery, documentation of the care provided to the patient excluding any time spent in the performance of separately billed services. PEDRITO Quijano [facility] Cardiology [facility] Supervising Physician Co-Signing Physician Notes Attending attestation: Case reviewed with the advanced practitioner. I have personally performed a history and physical examination on the patient. I have reviewed the advanced practitioner's documentation on the date of service referenced in note, and I agree with, and take responsibility for the plan of care. Subjective: Patient seen and examined. Spouse, Yesy at the bedside. 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 They have 2 children ages 8 and 13. He notes recent twinges of chest discomfort and and intermittent tingling in his fingers. It does not necessarily come on with exertion. Symptoms do not sound like angina. He describes a sensation like a palpitation and even had symptom while I was interviewing him but telemetry reveals sinus rhythm in the 50s to 80s without arrhythmia other than normal sinus arrhythmia which would be a normal finding for his age Exam: Cardiovascular regular rhythm, no murmurs rubs or gallops, no edema Data: Serial EKG tracings reviewed, revealing sinus rhythm with incomplete right bu ndle branch block. Some of the tracings reveal findings of an age-indeterminate inferior infarct pattern, and this pattern has come and gone dating back to 2021 and 2022 and I think it is more consistent with his conduction system disease than ischemia. Echocardiogram performed today and interpreted independently revealed mild concentric left ventricular hypertrophy, normal LVEF in the range of 55 to 60%, no significant valvular disease. Aortic root is borderline dilated 3.6 cm, the ascending aorta is normal size to borderline dilated at 3.5 to 3.8 cm depending on where the measurement is ob tained. No pericardial effusion noted. These findings are unchanged compared to his previous outpatient study dated 11/26/2024. Recent CT angiogram performed last month without findings of pulmonary embolism or aortic dissection. Patient has had multiple CTs since his initial cardiac surgery. 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 -Recommend ongoing treatment with aspirin 81 mg daily along with duloxetine 20 mg daily. First dose now. He can take the duloxetine with his evening meal or at bedtime to stay on a 24-hour interval schedule. -No further cardiac testing felt to be indicated. Patient stable from cardiac perspective for discharge. I spent a total of 30 minutes (from 6:40 PM to 7:10 PM) coordinating, documenting, and providing care for this patient excluding time spent in the performance of separately billed services or time spent by another provider. Hai Sumner DO History of Present Illness Reason for Consultation: chest pain Requesting Physician: aida jha Attending Physician: Heri Young MD History of Present Illness HPI: 29 year old male with PMHx significant for SVT, GERD, prior aortic root repair, prior pericarditis and chronic atypical chest pain presents to the ER with intermittent dizziness/pre-syncope and chest pain described as a tightness and squeezing. States that it is persistent, but varies in intensity. Endorses that sometimes he will get a jabbing pain "almost like my heart shutters" but states it happens with he will lift his left arm and stretch his shoulder back. pain sometimes worse with exertion, sometimes not. Sometimes very notable after he runs up a flight of stairs and stops. Trop negative x2 Initial EKG SR with incomplete Right BBB, T wave inversion in lead III. Repeat EKG shows NSR with incomplete right BBB, Suggestion of inferior infarct pre viously cited. Same T wave inversion in lead III History includes: 1. ascending aortic aneurysm, 7.4 cm, with dilated aortic root status post valve sparing surgery with aortic root and ascending aortic aneurysm repair August 07, [address] Díaz. Follows yearly with CT surgery 2. Patient experienced viral pericarditis requiring pericardiocentesis with 1100 mL drainage several weeks after surgery without recurrence. 3. Symptomatic PVC's and paroxysmal SVT 4. Sinus bradycardia, intolerant of beta maico 5. Chronic, atypical chest pain. Negative stress echo Oct 2023 6. Intermittent dizziness/pre syncope Patient had a recent ZIO monitor (12/09/24), a resting echo 11/26/24, and last stress echo 11/17/2023 (noted in diagnostics). He has had multiple CT's over the past year with most recent on 12/01/[address] [facility] Allergies Allergy/AdvReac Type Severity Reaction Status Date / Time No Known Allergies Allergy Verified 06/01/24 20:34 Home Medications Medication Instructions Recorded Confirmed Type aspirin 81 mg tablet,delayed 81 mg PO DAILY 01/22/25 01/22/25 History release multivitamin with minerals 1 tab PO DAILY 01/22/25 01/22/25 History Patient History Medical History Pericardial effusion Aneurysm of thoracic aorta Surgical History (Updated 11/16/24 @ 15:17 by Siena Salcedo PA-C) Status post ascending aortic aneurysm repair Aortic valve sparing aortic root replacement and repair (08/07/2022) at [facility]. 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 Other Information That Helps Us Care for You: No Feels Safe at Home: Yes Safety Concerns: Feels Safe At This Time Assistive Devices: None Results & Data Vital Signs (Past 12 Hours) Vital Signs Temp Pulse Pulse Resp BP BP Pulse Ox 01/22/25 08:02 01/22/25 08:02 36.2 C L 64 18 126/85 100 01/22/25 07:30 56 L 12 133/87 97 01/22/25 07:27 01/22/25 07:00 56 L 14 121/87 98 01/22/25 04:56 99 01/22/25 04:56 99 01/22/25 04:48 72 01/22/25 04:35 36.5 C 68 18 132/90 99 O2 Del Method 01/22/25 08:02 Room Air 01/22/25 08:02 Room Air 01/22/25 07:30 Room Air 01/22/25 07:27 Room Air 01/22/25 07:00 Room Air 01/22/25 04:56 Room Air 01/22/25 04:56 Room Air 01/22/25 04:48 01/22/25 04:35 Room Air Laboratory Results Cardiac Enzymes 01/22/25 01/22/25 Range/Units 04:41 08:09 AST 21 (13-39) U/L Troponin I High Sens < 2.3 3.3 (0-20) pg/ml CBC 01/22/25 Range/Units 04:41 WBC 3.43 L (4.8-10.8) K/ul RBC 5.01 (4.70-6.10) M/uL Hgb 15.0 (14.0-18.0) g/dl Hct 43.0 (42.0-52.0) % Plt Count 126 L (130-400) K/uL Neut # (Auto) 1.30 L (1.40-6.50) K/uL Lymph # (Auto) 1.62 (1.20-3.40) K/uL Hendry # (Auto) 0.46 (0.11-0.59) K/uL Eos # (Auto) 0.04 (0.00-0.50) K/uL Baso # (Auto) 0.01 (0.00-0.20) K/uL Comprehensive Metabolic Panel 01/22/25 Range/Units 04:41 Sodium 140 (136-145) mmol/L Potassium 3.9 (3.5-5.1) mmol/L Chloride 106 (98-107) mmol/L Carbon Dioxide 31 (21-32) mmol/L BUN 20 (6-23) mg/dl Creatinine 0.87 (0.6-1.4) mg/dl Glucose 93 (70-99(Fasting)) mg/dl Calcium 9.2 (8.6-10.3) mg/dl AST 21 (13-39) U/L ALT 17 (7-52) U/L Alkaline Phosphatase 40 (34-104) U/L Total Protein 7.9 (6.0-8.3) gm/dl Albumin 4.5 (3.4-5.0) gm/dl Intake and Output 01/21/25 01/22/25 01/22/25 22:59 06:59 14:59 Other: Weight 108.8 kg 108.8 kg Weight Measurement Method Standing Scale Patient Weight 01/23/25 06:59 Weight 108.8 kg Diagnostic Findings CTA Chest 12/05/2024: [facility] Impression: 1 No evidence of PE 2. No evidence of aortic dissection or aneurysm 3. Mild cardiomegaly, new 4. minimal pericardial effusion CT ABD/Pelvis 12/05/2024: -No acute findings -Hepatomegaly -Borderline spleen size Unchanged lytic lesion in L5 verebral body -Minimal pericardial effusion Exercise stress echo report reviewed dated Oct 2023: Interpretation Summary The stress echo is negative for inducible ischemia. Exercise capacity is above average . No arrhythmias were noted with stress. Blood pressure response to exercise was normal. Heart rate response to stress was normal. Resting Study: The qualitative LV ejection fraction is 55-59% (normal). The LV wall thickness is borderline increased (concentric). The left ventricular wall motion is normal. The left ventricular diastolic function is normal. Mild mitral regurgitation is present. There is evidence of prior ascending aortic graft. The aortic root is borderline dilated, 3.8 cm. The ascending aorta is normal size, 3.7 cm. Compared to study dated June 25, 2023, aortic root and ascending aortic diameters are stable. 12/09/2024: CONCLUSIONS: Duration: 6 days, 20 hours Patient had a min HR of 51 bpm, max HR of 140 bpm, and avg HR of 74 bpm. Predominant underlying rhythm was Sinus Rhythm. Isolated SVEs were rare (<1.0%), and no SVE Couplets or SVE Triplets were present. Isolated VEs were rare (<1.0%), and no VE Couplets or VE Triplets were present. 13 symptomatic events correlate with normal sinus rhythm, heart rate 72-95 beats per minute. (1) Chest pain Chest pain type: unspecified Qualified Code(s): R07.9 - Chest pain, unspecified
--- OUTSIDE RECORDS SUMMARY | 2025-01-22 11:14 | External Medical Summary | Summary of Care ---
Author Name Unknown Organization [facility] Address [address] [facility] [place] [address] Phone [phone] Care Team Providers Care Leaf Sucker Operator Name Role Phone Raghu Sandhu MD Primary Care Provider Reason for Visit * Reason Onset Date Comments Medication Question 12/22/2024 Pre-op Clearance 12/22/2024 Tano Encounter Details Date Type Department Care Team (Late st Contact Info) Description 12/22/2024 Telephone Cardiology, [facility] [address] [place] [address] Ana Freedman PA-C [address] [place] [id number] Medication Question; Pre-op Clearance (Tano) Allergies No known active allergiesdocumented as of this encounter (statuses as of 12/24/2024) Medications Aspirin 81 MG Oral Tablet Chewable Take 1 Tablet by mouth in the morning. Do not start before December 10, 2022. 30 Tablet 2 12/10/2022 Active Vitamin B-12 500 MCG Oral Tablet (vitamin B-12) Take 1 Tablet by mouth in the morning. Active Mens Multi Vitamin & Mineral Oral Tablet Take by mouth. Active SUMAtriptan Succinate 50 MG Oral Tablet (Imitrex) Take 1 tablet at onset of migraine and one tablet every 2 hours as needed, not more than 5 tablets in 24 hours 6 Tablet 5 10/29/2024 Active documented as of this encounter (statuses as of 12/24/2024) Active Problems Problem Noted Date Diagnosed Date Gynecomastia 12/21/2024 Subareolar lump of right breast 12/21/2024 SVT (supraventricular tachycardia) 06/02/2024 H/O aortic root repair 10/08/2023 History of pericarditis 02/13/2023 Gastroesophageal reflux disease without esophagi tis 12/02/2022 Overweight (BMI 25.0-29.9) 07/11/2022 documented as of this encounter (statuses as of 12/24/2024) Resolved Problems Problem Noted Date Diagnosed Date Resolved Date Facial paresthesia 03/20/2023 Blurred vision, bilateral 03/20/2023 Obesity, Class I, BMI 30.0-3 4.9 (see actual BMI) 11/28/2022 10/29/2024 Acute viral pericarditis 11/25/2022 Pericardial effusion with cardiac tamponade 11/20/2022 11/25/2022 Aortic root aneurysm 09/18/2022 023 S/P ascending aortic aneurysm repair 08/22/2022 05/27/2024 H/O aortic root repair 08/15/202211/28 Aortic regurgitation 07/30/2022 022 Aortic root enlargement 07/11/202207/28 Overview (07/11/2022): Intermittent when lifting weights documented as of this encounter (statuses as of 12/24/2024) Immunizations Name Administration Dates Next Due HepA Inact/HepB Recomb>=18yrs old 10/09/2016, IPV - Polio Virus Vaccine (Inact) 10/09/2016 Meningococcal MCV4P Conjugate Vaccine (Menactra) 08/21/2016 Seasonal Influenza Vac., MDV, IM, 0.5 mL (Fluzon e) 08/23/2016 Seasonal Influenza, Quadrivalent, No Preserve, I M 08/10/2019 TDAP, Age 7 and older, IM (Adacel) 04/26/2016 documented as of this encounter Social History Tobacco Use Types Packs/Day Years Used Date Smoking Tobacco: Never Passive Smoke Exposure: Past Smokeless Tobacco: Former Chew Quit: 04/14/2022 Comments:chewed 1 can/day fo r approx 7 years Alcohol Use Standard Drinks/Week Comments Yes 3 (1 standard drink = 0.6 oz pur e alcohol) Once a month or so PHQ-2 Answer Date Recorded PHQ Adult Total Score 0 10/29/2024 Hunger Vital Sign Answer Date Recorded Within the past 12 months, y ou worried that your food would run out before you got the money to buy more. Never true 10/29/19 25 Within the past 12 months, t he food you bought just didn't last and you didn't have money to get more. Never true 10/29/2024 Childcare Answer Date Recorded Do you feel overwhelmed with taking care of a child, family member or friend? No 10/29/2024 Does your family need help f inding childcare? (Household - for ages 0-17 years) Not on file 10/29/2024 Clothing Answer Date Recorded Have you been unable to get clothing when it was really needed? No 10/29/2024 Is your family able to get c lothes or diapers when needed? (Household - for ages 0-17 years) Not on file 10/29/2024 Personal Safety Answer Date Recorded Do you feel unsafe or have concerns for your saf ety? No 10/29/2024 Do you have concerns for you r family's safety? (Household - for ages 0-17 years) Not on file 10/29/2024 Utilities Answer Date Recorded Do you have trouble paying y our heating, water, or electric bill? No 10/29/2024 Is your family able to pay t he heat, water, or electric bill? (Household - for ages 0-17 years) Not on file 10/29/2024 Does your family have access to good internet? (Household - for ages 0-17 years) Not on file 10/29/2024 Employment Status Answer Date Recorded Are you unemployed or without regular income? No 10/29/2024 Does the household have a re gular source of income? (Household - for ages 0-17 years) Not on file 10/29/2024 Social Connections Answer Date Recorded How often do you feel lonely or isolated from th ose around you? Never 10/29/2024 Financial Resource Strain Answer Date R ecorded Do you have any trouble payi ng for your medications, or do you think you might in the future? No 10/29/2024 Does your family have troubl e paying for medicine? (Household - for ages 0-17 years) Not on file 10/29/2024 Transportation Needs Answer Date Record ed Do you have trouble getting a ride to medical visits or work? (Adult - for ages 18 years and over) Not on file 10/29/2024 Does your family have a hard time getting a ride to doctors visits? (Household - for ages 0-17 years) Not on file 10/29/2024 Has lack of transportation k ept you from medical appointments, meetings, work, or from getting things needed for daily living? Check all that apply. No 10/29/2024 Do you (or your family) have trouble finding or paying for a ride (transportation)? (Household - for ages 0-17 years) Not on file 10/29/2024 Housing Stability Answer Date Recorded Do you currently live in a s helter or have no steady place to sleep at night? No 10/29/2024 Do you think you are at risk of becoming homeless? (Adult - for ages 18 years and over) Not on file 10/29/2024 Does your family worry about paying for your home or becoming homeless? (Household - for ages 0-17 years) Not on file 0 10/29/2024 Are you homeless or worried that you might be in the future? No 10/29/2024 Are you (or your family) rajeev eless or worried that you might be in the future? (Household - for ages 0-17 years) Not on file Food Insecurity Answer Date Recorded Do you need food for this week? No 10/29/2024 Are you able to get enough f ood for your family? (Household - for ages 0-17 years) Not on file 10/29/2024 Does your family need food t his week? (Household - for ages 0-17 years) Not on file 10/29/2024 Do you always have enough fo od for your family? (Household - for ages 0-17 years) Not on file 10/29/2024 Food Insecurity Answer Date Recorded Within the past 12 months, y ou worried that your food would run out before you got the money to buy more. Never true 10/29/19 25 Within the past 12 months, t he food you bought just didn't last and you didn't have money to get more. Never true 10/29/2024 Do you need food for this week? No 10/29/2024 Sex and Gender Information Value Date Recorded Sex Assigned at Not on file Legal Sex Male 6:05 AM EST Gender Identity Male 10/29/2024 10:28 AM EST Sexual Orientation Straight 10/29/2024 10 :28 AM EST documented as of this encounter Miscellaneous Notes * Telephone Encounter - Bella Morrissey LPN - 12/24/2024 3:21 PM EST Sent pt message via [employer] for Jo at [facility] OR * Telephone Encounter - Ana Freedman PA-C - 12/24/2024 2:28 PM EST Zio monitor results reviewed dated 12/09/24: Normal sinus rhythm noted throughout with rare ectopy No concerning findings. He also had recent echo dated 11/26/24 with normal LVEF at 55-59% No wall motion abnormalities. No valvular heart disease. Normal sized ascending aorta and aortic root. No pericardial effusion Patient has a history of aortic aneurysm repair in 2021. He has done well since that time and recent tests demonstrate stable measurements of his aorta withnormal LVEF. His BP and HR have been well controlled. No arrhythmias. Based on the above findings, patient is considered low risk for perioperative cardiac complicationsin regards to upcoming surgery. No further cardiac testing warranted. Ana Freedman PA-C Department of Cardiology * Telephone Encounter - Jesse Wagner LPN - 12/23/2024 12:47 PM EST Zio results available. * Telephone Encounter - Ana Freedman PA-C - 12/23/2024 12:38 PM EST Noted. Likely does not need in person appt. Await ZIO results. Recent echo already reviewed and stable findings. * Telephone Encounter - Jo Mclain OSA - 12/23/2024 8:29 AM EST Spoke with patient to make him aware that we are waiting for clarification if we can get him cleared before 12/31/24. He did state on the phone that he did turn the zio patch back in. 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 Patient is schedule for first available appointment in June and added to wait list. Does patient need a cardiac clearance appointment or can patient be cleared based on last office visit andrecent testing. Jo requests reply back therefore I have included her ion the message. Please advise. * Telephone Encounter - Jesse Wagner LPN - 12/22/2024 3:54 PM EST Sent patient a [employer] message to follow up. Awaiting reply. Procedure per Media scan would be: Right subareolar partial mastectomy for gynecomastia by Davi Cameron MD * Telephone Encounter - Ana Freedman PA-C - 12/22/2024 3:47 PM EST Patient was taken off beta maico due to resting sinus bradycardia. He should not be taking at this time. Recent echo with normal LVEF, no valvular disease no normal sized ascending aorta/aortic root He was going to wear a ZIO due to palpitations. I do not see these results yet. What surgery is he having? * Telephone Encounter - Georgia Block OSA - 12/22/2024 11:09 AM EST Person calling: Eric Relationship to patient: self Phone/Fax to return call: [phone] Reason for call(brief): pre op clearance/metoprolol Pharmacy: na Provider Name:Ana Freedman Detailed message to office:Patient calling to ask cardiology if he needed anything before his general surgery procedure on 12/31, advised general surgery would have to request clearance if needed. Alsoasking if he should be on metoprolol, said another doctor advised him he should be taking it. Please advise. Thanks documented in this encounter Plan of Treatment Upcoming Encounters Date Type Department Care Team (Latest Contact Info) Description 12/31/2024 1:26 PM EST Hospital Encounter OR [facility], Operating Room, [facility] - 4th Floor [address] [phone] Alfredito Cameron MD [address] [address] 12/31/2024 1:26 PM EST - 12/31/2024 3:06 PM EST Surgery OR [facility], Operating Room, [facility] - 4th Floor [address] [place] [phone] Alfredito Cameron MD [address] [place] [address] MASTECTOMY PARTIAL 01/13/2025 10:15 AM EDT Office Visit General Surgery [address] [place] [address] Alfredito Cameron MD [address] [place] [address] 03/24/2025 3:00 PM EDT Telemedicine Cardiothoracic Surg [facility] [address], [place] [id number] Ramsey Díaz MD [address] [place] [address] 07/06/2025 1:30 PM EDT Office Visit Cardiology, [facility] [address] [address] Ana Freedman PA-C [address] [place] [address] Scheduled Procedures Name Priority Associated Diagnoses Date/Ti me MASTECTOMY PARTIAL Gynecomastia Subareolar lump of right breast 12/31/2024 1:26 PM EST Health Maintenance Due Date Last Done Comments Depression Screening 10/29/2025 10/29/2024 DTap/Tdap Vaccines (2 - Td o r Tdap) 04/26/2026 04/26/2016 MENINGOCOCCAL (MENACTRA/MENVEO) Aged Out 08/21/2016 No longer eligible based on patient's age to complete this topic Hepatitis B Vaccine Discontinued 10/09/2016, 08/23/2016 COVID-19 Vaccine Discontinued HIV Screening Discontinued HPV (Gardasil) Vaccine Aged Out No lo nger eligible based on patient's age to complete this topic Hepatitis C Screening Discontinued Meningitis B Vaccine (Bexsero/Trumemba) Aged Out No longer eligible based on patient's age to complete this topic Pneumococcal Vaccine: Pediatrics (0 to 5 Years) and At-Risk Patients (6 to 18 Years and 19+ Years) Aged Out No longer eligible based on patient's age to complete this topic documented as of this encounter Medical Devices Implanted Type Area Cement Tile Maker Device Identifier Shelf Expiration Date Model / Serial / Lot Graft Aortic Root 32mm - [id number] Implanted:Qty : 1 on 08/07/2022 [place] Ramsey Díaz [place] [facility] [place]: Aorta GETINGE : MAQUET [id number] 04/25/2027 IV77 .0095 8 / [id number] Suture Steel 6 B&S19 M654g - [id number] Implanted:Qty : 8 on 08/07/2022 by Rmasey Díaz MD at [place] [facility] [place]: Sternum JNJ : [employer] 05/26/2027 M654G / / [id number] Cath Perivac Kit Str 8.3f - [id number] Implanted:Qty : 1 on 11/21/2022 by Yuki Rao MD at [facility] [place] [employer] [id number] 12/24/2024 [id number] / / [id number] documented as of this encounter Advance Directives * Full Code (Latest Code Status on File) Date Activated Date Inactivated Comments 11/20/2022 6:51 PM 11/25/2022 7:01 PM This order r eflects the patients wishes and were consensually agreed upon. Question Answer Comments Discussion of Advance Directives occurred with: Patient * Full Code Date Activated Date Inactivated Comments 08/07/2022 6:56 PM 08/11/2022 2:40 PM This order reflects the patients wishes and were consensually agreed upon. Question Answer Comments Discussion of Advance Directives occurred with: Patient Care Teams Leaf Sucker Operator Relationship Specialty Start Date End Date Raghu Sandhu MD [address] [address] [address] PCP - General Family Medicine 11/02/24 documented as of this encounter
--- OUTSIDE RECORDS SUMMARY | 2025-01-22 11:14 | External Medical Summary | Summary of Care ---
Author Name Unknown Organization [facility] Address [address] [place] [facility] [place] [place] [address] Phone [phone] Care Team Providers Care Investigations Director Name Role Phone Raghu Sandhu MD Primary Care Provider Reason for Visit * Reason Onset Date Comments Medication Question 12/22/2024 Pre-op Clearance 12/22/2024 Tano Encounter Details Date Type Department Care Team (Late st Contact Info) Description 12/22/2024 Telephone Cardiology, [facility] [address] [place] [address] Ana rFeedman PA-C [address] [place] [phone] Medication Question; Pre-op Clearance (Tano) Allergies No known active allergiesdocumented as of this encounter (statuses as of 12/27/2024) Medications Aspirin 81 MG Oral Tablet Chewable [...] as of this encounter (statuses as of 12/27/2024) Active Problems Problem Noted Date Diagnosed Date Gynecomastia 12/21/2024 Subareolar lump of right breast 12/21/2024 SVT (supraventricular tachycardia) 06/02/2024 H/O aortic root repair 10/08/2023 History of pericarditis 02/13/2023 Gastroesophageal reflux disease without esophagi tis 12/02/2022 Overweight (BMI 25.0-29.9) 07/11/2022 documented as of this encounter (statuses as of 12/27/2024) Resolved Problems Problem Noted Date Diagnosed Date [...] as of this encounter (statuses as of 12/27/2024) Immunizations Name Administration Dates Next Due HepA [...] encounter Miscellaneous Notes * Telephone Encounter - Alfredito Cameron MD - 12/27/2024 11:20 AM EST Thanks. * Telephone Encounter - Jo Mclain OSA - 12/27/2024 10:07 AM EST Forwarded to surgeon and Anesthesia as FYI. 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 Awaiting reply. Procedure [...] to patient: self Phone/Fax to return call: [phone] Reason for call(brief): pre op clearance/metoprolol Pharmacy: [...] 12/31/2024 1:26 PM EST Hospital Encounter OR [facility], Operating Room, [facility] - 4th Floor [address] [place] [phone] Alfredito Cameron MD [address] [address] 12/31/2024 1:26 PM EST - 12/31/2024 3:06 PM EST Surgery OR [facility], Operating Room, [facility] - 4th Floor [address] [place] [address] Alfredito Cameron MD [address] [place] [address] MASTECTOMY PARTIAL 01/13/2025 10:15 AM EDT Office Visit General Surgery [address] [facility] [address] [place] [address] Alfredito Cameron MD [address] [place] [address] 03/24/2025 3:00 PM EDT Telemedicine Cardiothoracic Surg [facility] [address] [place] [address] Ramsey Díaz MD [address] [place] [address] 07/06/2025 1:30 PM EDT Office Visit Cardiology, [facility] [address] [address] Ana Freedman PA-C [address] [address] Scheduled Procedures Name Priority Associated Diagnoses Date/Ti [...] this encounter Medical Devices Implanted Type Area Parts Specialist Device Identifier Shelf Expiration Date Model / Serial / Lot Graft Aortic Root 32mm - [id number] Implanted:Qty : 1 on 08/07/2022 by Ramsey Díaz MD at [place] [facility] [place]/A: Aorta GETINGE : MAQUET [id number] 04/25/2027 IV77 .0095 8 / [id number] Suture Steel 6 B&S19 M654g - [id number] Implanted:Qty : 8 on 08/07/2022 by Ramsey Díaz MD at OR [facility] [place] N/A: Sternum JNJ : [employer] 05/26/2027 M654G / / [id number] Cath Perivac Kit Str 8.3f - [id number] Implanted:Qty : 1 on 11/21/2022 by Yuki Rao MD at [facility]ARDIAC LABS [facility] [place] [employer] [id number] 12/24/2024 [id number] AC1S0 / / [id number] documented as of this encounter Advance Directives [...] Advance Directives occurred with: Patient Care Teams Investigations Director Relationship Specialty Start Date End Date Raghu Sandhu MD [address] [address] PCP - General Family Medicine 11/02/24 documented as of this encounter
--- OUTSIDE RECORDS SUMMARY | 2025-01-22 11:14 | External Medical Summary | Summary of Care ---
Author Name Unknown Organization [facility] Address [address] [place] [facility] [place] [address] Phone [phone] Care Team Providers Care Muleser Name Role Phone Raghu Sandhu MD Primary Care Provider Reason for Referral * Evaluate & Treat - Unlimited Visits (Within 10 days (routine)) - Authorized Specialty Diagnoses / Procedures Referred By Contact Referred To Contact Cardiovascular Medicine / Cardiology Diagnoses Gynecomastia Subareolar lump of right breast Alfredito Cameron MD [address] [place] [address] Phone: tel: fax: Referral ID Status Reason Start Date Expiration Date Visits Requested Visits Authorized [id number] Authorized Specialty Services Required 12/22/2024 999 999 Question Answer Referral Priority Within 10 days (routine) Where should this appointment be scheduled? [facility] For which of the following conditions are you referring? Other Condition Not Listed Other Condition: Preop cardiovascular risk assessment Reason for Visit * Reason Onset Date Comments Surgery 12/22/2024 Encounter Details Date Type Department Care Team (Late st Contact Info) Description 12/22/2024 Telephone General Surgery Anjana Wolff [address] [place] [address] Alfredito Cameron MD [address] [phone] Surgery Allergies No known active allergiesdocumented as of this encounter (statuses as of 12/23/2024) Medications Aspirin 81 MG Oral Tablet Chewable [...] as of this encounter (statuses as of 12/23/2024) Active Problems Problem Noted Date Diagnosed Date Gynecomastia 12/21/2024 Subareolar lump of right breast 12/21/2024 SVT (supraventricular tachycardia) 06/02/2024 H/O aortic root repair 10/08/2023 History of pericarditis 02/13/2023 Gastroesophageal reflux disease without esophagi tis 12/02/2022 Overweight (BMI 25.0-29.9) 07/11/2022 documented as of this encounter (statuses as of 12/23/2024) Resolved Problems Problem Noted Date Diagnosed Date [...] as of this encounter (statuses as of 12/23/2024) Immunizations Name Administration Dates Next Due HepA [...] 10/29/2024 Does the household have a re lar source of income? (Household - for ages [...] encounter Miscellaneous Notes * Telephone Encounter - Jo Mclain OSA - 12/23/2024 8:26 AM EST Spoke with patient and made him aware that cardiology at [facility] can not get him in until June. The rehabilitation aide/scheduler that I spoke with however stated that the provider is waiting for a response from the patient whether he turned his Zio Patch back in and may be able to clear him without being seen is what she is getting from the note, but needs to clarify with the nurse and provider. Patient stated that he did turn the zio patch back in and will respond to the MyG message. Will wait to see what air quality chemist says to determine if patient needs to be rescheduled. * Telephone Encounter - Jo Mclain OSA - 12/23/2024 8:15 AM EST Patient is aware and asked that I set the appointment up for him. He is going into work so he askedthat I leave a message on his voicemail. * Telephone Encounter - Jo Mclain OSA - 12/22/2024 4:21 PM EST LMOM for patient to callback as well to make him aware. * Telephone Encounter - Jo Mclain OSA - 12/22/2024 4:18 PM EST Provider is requesting clearance. Please advise if patient needs to be seen or if can be cleared ? Patient is having right Subareolar Mastectomy done under General Anesthesia 12/31/24. * Telephone Encounter - Alfredito Cameron MD - 12/22/2024 3:52 PM EST Will order. * Telephone Encounter - Jo Mclain OSA - 12/22/2024 12:48 PM EST Patient called in questioning if he needs to have cardiac clearance done prior to his surgery due to his medical history? Patient reached out to cardiology and they advised him to contact surgeon. Please advise. Surgery is scheduled for 12/31/24. documented in this encounter Plan of Treatment Upcoming Encounters Date Type Department Care Team (Latest Contact Info) Description 12/31/2024 1:26 PM EST Hospital Encounter OR [facility], Operating Room, [facility] - 4th Floor [address] [place] [address] Alfredito Cameron MD [address] [place] [address] 12/31/2024 1:26 PM EST - 12/31/2024 3:06 PM EST Surgery OR [facility], Operating Room, [facility] - 4th Floor [address] [place] [address] Alfredito Cameron MD [address] [place] [address] MASTECTOMY PARTIAL 01/13/2025 10:15 AM EDT Office Visit General Surgery Denise Anjana Ge [address] [facility] [address] [place] [address] Alfredito Cameron MD [address] [place] [address] 03/24/2025 3:00 PM EDT Telemedicine Cardiothoracic Surg [facility] [address] [place] [address] Ramsey Díaz MD [address] [place] [address] 07/06/2025 1:30 PM EDT Office Visit Cardiology, [facility] [address] [facility] [place] [address] Ana Freedman PA-C [address] [facility] [place] [address] Scheduled Procedures Name Priority Associated Diagnoses Date/Ti me MASTECTOMY PARTIAL Gynecomastia Subareolar lump of right breast 12/31/2024 1:26 PM EST Scheduled Referrals Name Type Priority Associated Diagnoses Orde r Schedule CARDIOLOGY REFERRAL OP Referral Within 10 days (routine) Gynecomastia Subareolar lump of right breast Ordered: 12/22/2024 Health Maintenance Due Date Last Done Comments [...] this encounter Medical Devices Implanted Type Area Community Worker Device Identifier Shelf Expiration Date Model / Serial / Lot Graft Aortic Root 32mm - [id number] Implanted:Qty : 1 on 08/07/2022 by Ramsey Díaz MD at [place] [facility] [place]A: Aorta GETINGE : MAQUET [id number] 04/25/2027 IV77 .0095 8 / [id number] Suture Steel 6 B&S19 M654g - [id number] Implanted:Qty : 8 on 08/07/2022 by Ramsey Díaz MD at [place] [facility] [place] N/A: Sternum JNJ : [employer] 05/26/2027 M654G / / [id number] Cath Perivac Kit Str 8.3f - [id number] Implanted:Qty : 1 on 11/21/2022 by Yuki Rao MD at [facility]ARD[facility] LABS [facility] [place] [employer] [id number] 12/24/2024 [id number] AC1S0 / / [id number] documented as of this encounter Visit Diagnoses Diagnosis Gynecomastia Hypertrophy of breast Subareolar lump of right breast Gynecomastia- Primary Hypertrophy of breast Subareolar lump of right breast Gynecomastia Hypertrophy of breast Subareolar lump of right breast documented in this encounter Advance Directives * Full Code [...] Advance Directives occurred with: Patient Care Teams Muleser Relationship Specialty Start Date End Date Raghu Sandhu MD [address] [facility] [place] [address] PCP - General Family Medicine 11/02/24 documented as of this encounter
--- OUTSIDE RECORDS SUMMARY | 2025-01-22 11:14 | External Medical Summary | Summary of Care ---
Author Name Unknown Organization [facility] Address [address] [place] [facility] [place] [address] Phone [phone] Care Team Providers Care Rn Case Manager Name Role Phone Raghu Sandhu MD Primary Care Provider Reason for Visit * Reason Onset Date Comments Follow Up 01/03/202501/04 Encounter Details Date Type Department Care Team (Late st Contact Info) Description 01/03/2025 Telephone General Surgery Anjana Wolff [address] [place] [address] [place] [address] Alfredito Cameron MD [address] [place] [address] Follow Up (01/04) Allergies No known active allergiesdocumented as of this encounter (statuses as of 01/05/2025) Medications Aspirin 81 MG Oral Tablet Chewable [...] 24 hours 6 Tablet 5 10/29/2024 Active Acetaminophen 325 MG Oral Tablet (Tylenol) Take 2 Tablets by mouth every 6 hours as needed (Mild, Moderate, Severe pain) for up to 10 days. 80 Tablet 12/31/2024 11:45 AM EST 12/31/2024 01/11/20 Active Ibuprofen 200 MG Oral Tablet (Motrin) Take 2 Tablets by mouth every 6 hours as needed (Moderate, Severe Pain) for up to 10 days. 80 Tablet 12/31/2024 11:45 AM EST 12/31/2024 01/11/20 25 Active documented as of this encounter (statuses as of 01/05/2025) Active Problems Problem Noted Date Diagnosed Date Gynecomastia 12/21/2024 Subareolar lump of right breast 12/21/2024 SVT (supraventricular tachycardia) 06/02/2024 H/O aortic root repair 10/08/2023 History of pericarditis 02/13/2023 Gastroesophageal reflux disease without esophagi tis 12/02/2022 Overweight (BMI 25.0-29.9) 07/11/2022 documented as of this encounter (statuses as of 01/05/2025) Resolved Problems Problem Noted Date Diagnosed Date [...] as of this encounter (statuses as of 01/05/2025) Immunizations Name Administration Dates Next Due HepA [...] encounter Miscellaneous Notes * Telephone Encounter - Crys Nath LPN - 01/05/2025 10:52 AM EDT Called patient and verified . Patient reports that he is feeling much better and all symptoms have resolved. He feels a little "foggy" but reports that this has been going on for quite some time and has FU for this symptom with his neurologist. Patient informed to contact the office if any further problems. Pt verbalized understanding. PO appt with Dr. Cameron is 01/13/25. * Telephone Encounter - Crys Nath LPN - 01/04/2025 3:24 PM EDT Attempted to reach the patient. No answer. Left message for the patient to contact our office. * Telephone Encounter - Crys Nath LPN - 01/04/2025 2:15 PM EDT Attempted to reach the patient. No answer. Left message for the patient to contact our office. * Telephone Encounter - Crys Nath LPN - 01/03/2025 3:29 PM EDT Spoke with Dr. Cameron, Per Dr. Cameron, increase food intake, increase hydration, continue with modification activity. Patient has been on a very strict food regimen and needs to eat more nutrients. Called patient, pt verbalized understanding. If symptoms persist or increase, the patient seek medication attention in the ER. Call to the patient tomorrow for FU. * Telephone Encounter - Crys Nath LPN - 01/03/2025 3:10 PM EDT PATIENT IS S/p Right subareolar mastectomy on 12/31/[address] Cameron Pain Level- 2/10 Meds being taken for pain- Tylenol PRN Are pain meds effective- yes Incision sites- No redness, swelling, dehiscence or drainage Does the patient have a drain- no Does the patient have dressings? Are they aware of dressing instructions- na Appetite- decreased appetite Nausea/vomiting- Nausea and no vomiting Bowel movement- yes Activity- walking and resting within the home Complying with activity restrictions- yes Coughing and deep breathing- no cough Questions or concerns- as below Post operative follow up scheduled for 01/13/25 Super lethargic, nausea, feeling weightless, chest pain (no different from prior to surgery) HR: 73 Feels anxious Denies fevers, chills/pain, SOB. Symptoms started yesterday and seems to have increased today. * Telephone Encounter - Lindy Blanco CMA - 01/03/2025 1:34 PM EDT Called patient. No answer. Left message to return call. * Telephone Encounter - Crys Nath LPN - 01/03/2025 1:23 PM EDT Pt will need to have FU phone call from S/P Right Subareolar Mastectomy 12/31/24. 01/03/25 12:24 Contact type SMS Combo Outcome Patient answered/responded Outreach name General Surgery Surgeon ALFREDITO CAMERON Procedure MASTECTOMY PARTIAL Procedure Date 12/31/2024 Discharge Date 12/31/2024 Experiencing unexpected symptoms or concerns (pt reported) Yes ! Experiencing urgent symptoms (pt reported) No Questions or concerns regarding discharge instructions (pt reported) No Response Questions about the medications taking (pt reported) No Response Need help obtaining medications prescribed (pt reported) No Response Has follow up appointments scheduled (pt reported) No Response Any questions or concerns to discuss with healthcare provider (pt reported) No Response !: Data is abnormal documented in this encounter Plan of Treatment Upcoming Encounters Date Type Department Care Team (Late st Contact Info) Description 01/13/2025 10:15 AM EDT Office Visit General Surgery Anjana Wolff [address] [facility] [address] [place] [address] [address] Alfredito Cameron MD 27 [facility] [place] [address] 01/31/2025 2:00 PM EDT Office Visit Neurology [facility] [address] [facility] [place] [address] Alona Irene PA-C [address] [facility] [address] [place] [address] 03/24/2025 3:00 PM EDT Telemedicine Cardiothoracic Surg [facility] [address] [place] [address] Ramsey D[facility]az MD [address] [facility] [address] 07/06/2025 1:30 PM EDT Office Visit Cardiology, [facility] [address] [place] [address] Ana Freedman, RUBY [address] [place] [address] Health Maintenance Due Date Last Done Comments [...] this encounter Medical Devices Implanted Type Area Director Social Welfare Device Identifier Shelf Expiration Date Model / Serial / Lot Graft Aortic Root 32mm - [id number] Implanted:Qty : 1 on 08/07/2022 by Ramsey Díaz MD at [place] [facility] [place] N/A: Aorta GETINGE : MAQUET [id number] 04/25/2027 IV77 .0095 8 / [id number] Suture Steel 6 B&S19 M654g - [id number] Implanted:Qty : 8 on 08/07/2022 by Ramsey Díaz MD at OR [facility] [place] N/A: Sternum JNJ : [employer] 05/26/2027 M654G / / [id number] Cath Perivac Kit Str 8.3f - [id number] Implanted:Qty : 1 on 11/21/2022 by Yuki Rao MD at CARDIAC [facility]S [facility] [place] [employer] [id number] 12/24/2024 [id number] AC0 / / [id number] documented as of this encounter Advance Directives * Full Code (Latest Code Status on File) Date Activated Date Inactivated Comments 12/31/2024 7:38 AM 12/31/2024 4:04 PM Question Answer Comments Discussion of Advance Direct ryann occurred with: Not Discussed due to patient's condition * Full Code Date Activated Date Inactivated Comments 11/20/2022 6:51 [...] Advance Directives occurred with: Patient Care Teams Rn Case Manager Relationship Specialty Start Date End Date Raghu Sandhu MD [address] [place] [address] PCP - General Family Medicine 11/02/24 documented as of this encounter
--- OUTSIDE RECORDS SUMMARY | 2025-01-22 11:14 | External Medical Summary | Summary of Care ---
Author Name Unknown Organization [facility] Address [address] [place] [facility] [place] [address] Phone [phone] Care Team Providers Care Assistant Boiler Operator Name Role Phone Raghu Sandhu MD Primary Care Provider Reason for Referral * Evaluate & Treat - Unlimited Visits (Within 10 days (routine)) - Authorized Specialty Diagnoses / Procedures Referred By Contact Referred To Contact Cardiovascular Medicine / Cardiology Diagnoses Gynecomastia Subareolar lump of right breast Alfredito Cameron MD [address] [place] [address] [address] Phone: tel: fax: Referral ID Status Reason Start Date Expiration Date Visits Requested Visits Authorized [id number] Authorized Specialty Services Required 12/22/2024 999 999 [...] [id number] Alfredito Cameron MD [address] [phone] Surgery Allergies No known active allergiesdocumented as [...] encounter Miscellaneous Notes * Telephone Encounter - Ana Freedman PA-C - 12/23/2024 12:40 PM EST Noted. Duplicate encounter. Likely does not need in person visit as he has had recent testing and been doing well. Await ZIO results * Telephone Encounter - Jo Mclain OSA - 12/23/2024 8:26 AM EST Spoke with patient and made him aware that cardiology at [facility] can not get him in until June. The glove operator that I spoke with however stated that [...] MyG message. Will wait to see what naphtha washing system operator says to determine if patient needs to [...] 12/31/2024 1:26 PM EST Hospital Encounter OR [facility], Operating Room, [facility] - 4th Floor [address] [place] [address] Alfredito Cameron MD [address] [place] [address] [address] 12/31/2024 1:26 PM EST - 12/31/2024 3:06 PM EST Surgery OR [facility], Operating Room, [facility] - 4th Floor [address] [place] [address] Alfredito Cameron MD [address] [place] [address] MASTECTOMY PARTIAL 01/13/2025 10:15 AM EDT Office Visit General Surgery Anjana Wolff [address] [facility] [address] [place] [address] Alfredito Cameron MD [address] [place] [address] 03/24/2025 3:00 PM EDT Telemedicine Cardiothoracic Surg [facility] [address] [place] [address] Ramsey Díaz MD [address] [place] [address] 07/06/2025 1:30 PM EDT Office Visit Cardiology, [facility] [address] [place] [phone] Ana Freedman PA-C [address] [place] [address] Scheduled Procedures Name Priority Associated Diagnoses Date/Ti [...] this encounter Medical Devices Implanted Type Area Reinforcer Device Identifier Shelf Expiration Date Model / Serial / Lot Graft Aortic Root 32mm - [id number] Implanted:Qty : 1 on 08/07/2022 [place] Ramsey Díaz [place] [facility] [place] Aorta GETINGE : MAQUET [id number] 04/25/2027 IV77 .0095 8 / [id number] Suture Steel 6 B&S19 M654g - [id number] Implanted:Qty : 8 on 08/07/2022 by Ramsey Díaz [place] [facility] [place]: Sternum JNJ : [employer] 05/26/2027 M654G / / [id number] Cath Perivac Kit Str 8.3f - [id number] Implanted:Qty : 1 on 11/21/2022 by Yuki Rao MD [place] [facility] [facility] [place] [employer] [id number] 12/24/2024 [id number] AC1S0 / / [id number] documented as of this encounter Visit Diagnoses [...] Advance Directives occurred with: Patient Care Teams Assistant Boiler Operator Relationship Specialty Start Date End Date Raghu Sandhu MD [address] [facility] [place] [address] PCP - General Family Medicine 11/02/24 documented as of this encounter
--- OUTSIDE RECORDS SUMMARY | 2025-01-22 11:14 | External Medical Summary ---
Author Name Unknown Address Unknown Organization : Laboratory Report Ordering Provider Test Date Status DANIEL VEGA 12/31/2024 08:07:31 Final Observation Date Value Abnormality Reference (Units ) Status Glucose Point of Care 12/31/2024 08:07:31 93 70-120 (mg/dL) Final Performing Location
--- OUTSIDE RECORDS SUMMARY | 2025-01-22 11:14 | External Medical Summary | Summary of Care ---
Author Name Unknown Organization [facility] Address [address] [facility] [place] [facility] [place] [address] Phone [phone] Care Team Providers Care Seat Cover Maker Name Role Phone Raghu Sandhu MD Primary Care Provider Reason for Referral * Evaluate & Treat - Unlimited Visits (Within 10 days (routine)) - Authorized Specialty Diagnoses / Procedures Referred By Contact Referred To Contact Cardiovascular Medicine / Cardiology Diagnoses Gynecomastia Subareolar lump of right breast Alfredito Cameron MD [address] [place] [address] Phone: tel: fax: Referral ID Status Reason Start Date Expiration Date Visits Requested Visits Authorized [id number] Authorized Specialty Services Required 12/22/2024 999 999 [...] [id number] Alfredito Cameron MD [address] [place] [id number] Surgery Allergies No known active allergiesdocumented as [...] 12/31/2024 1:26 PM EST Hospital Encounter OR [facility], Operating Room, [facility] - 4th Floor [address] [place] [place] [address] Alfredito Cameron MD [address] [place] [address] 12/31/2024 1:26 PM EST - 12/31/2024 3:06 PM EST Surgery OR [facility], Operating Room, [facility] - 4th Floor [address] [place] [address] Alfredito Cameron MD [address] [place] [address] MASTECTOMY PARTIAL 01/13/2025 10:15 AM EDT Office Visit General Surgery Anjana Wolff [address] [place] [address] Alfredito Cameron MD [address] [place] [address] 03/24/2025 3:00 PM EDT Telemedicine Cardiothoracic Surg [facility] [address] [place] [address] Ramsey Díaz MD [address] [place], [place] [id number] Scheduled Procedures Name Priority Associated Diagnoses Date/Ti [...] this encounter Medical Devices Implanted Type Area Fruit Dumper Device Identifier Shelf Expiration Date Model / Serial / Lot Graft Aortic Root 32mm - [id number] Implanted:Qty : 1 on 08/07/2022 by Ramsey Díaz MD at [place] [facility] [place] N/A: Aorta GETINGE : MAQUET [id number] 04/25/2027 IV77 .0095 8 / [id number] Suture Steel 6 B&S19 M654g - [id number] Implanted:Qty : 8 on 08/07/2022 by Ramsey Díaz MD at [place] [facility] [place] N/A: Sternum JNJ : [employer] 05/26/2027 M654G / / [id number] Cath Perivac Kit Str 8.3f - [id number] Implanted:Qty : 1 on 11/21/2022 by Yuki Rao MD at [facility]ARD[facility] [place] [employer] [id number] 12/24/2024 [id number] AC1S0 / / [id number] documented as of this encounter Visit Diagnoses [...] Advance Directives occurred with: Patient Care Teams Seat Cover Maker Relationship Specialty Start Date End Date Raghu Sandhu MD [address] [facility] [place] [address] PCP - General Family Medicine 11/02/24 documented as of this encounter
--- OUTSIDE RECORDS SUMMARY | 2025-01-22 11:14 | External Medical Summary | Summary of Care ---
Author Name Unknown Organization [facility] Address [address] [place] [address] Phone [phone] Care Team Providers Care Infertility Nurse Name Role Phone Raghu Sandhu MD Primary Care Provider Reason for Visit * Auth/Cert Specialty Diagnoses / Procedures Referred By Contac t Referred To Contact Diagnoses Gynecomastia Subareolar lump of right breast Gynecomastia [N62] Subareolar lump of right breast [N63.41] Procedures MASTECTOMY, PARTIAL MASTECTOMY PARTIAL Alfredito Cameron MD [address] [address] Phone: tel: fax: OR [facility], Operating Room, [facility] - 4th Floor [address] [facility] [place] [address] Phone: tel: Referral ID Status Reason Start Date Expiration Date Visits Re quested Visits Authorized [id number] Encounter Details Date Type Department Care Team (Latest Contact Info) Description 12/31/2024 7:27 AM EST - 12/31/2024 12:00 PM EST Hospital Encounter OR [facility], Operating Room, [facility] - 4th Floor [address] [facility] [address] Alfredito Cameron MD [address] [id number] Discharge Disposition: Home - Self Care Allergies No known active allergiesdocumented as of this encounter (statuses as of 01/01/2025) Medications Aspirin 81 MG Oral Tablet Chewable [...] 11:45 AM EST 12/31/2024 01/11/20 25 Active Ibuprofen 200 MG Oral Tablet (Motrin) Take 2 Tablets by mouth every 6 hours as needed (Moderate, Severe Pain) for up to 10 days. 80 Tablet 12/31/2024 11:45 AM EST 12/31/2024 01/11/20 25 Active oxyCODONE HCl 5 MG Oral Tablet (Oxy IR) Take 1 Tablet by mouth every 8 hours as needed (Severe Pain) for up to 2 days. 6 Tablet 12/31/2024 11:45 AM EST 12/31/2024 01/03/20 25 Active documented as of this encounter (statuses as of 01/01/2025) Active Problems Problem Noted Date Diagnosed Date Gynecomastia 12/21/2024 Subareolar lump of right breast 12/21/2024 SVT (supraventricular tachycardia) 06/02/2024 H/O aortic root repair 10/08/2023 History of pericarditis 02/13/2023 Gastroesophageal reflux disease without esophagi tis 12/02/2022 Overweight (BMI 25.0-29.9) 07/11/2022 documented as of this encounter (statuses as of 01/01/2025) Resolved Problems Problem Noted Date Diagnosed Date [...] as of this encounter (statuses as of 01/01/2025) Immunizations Name Administration Dates Next Due HepA [...] No 10/29/2024 Does the household have a [facility] source of income? (Household - for ages [...] AM EST documented as of this encounter Last Filed Vital Signs Vital Sign Reading Time Taken Comments Blood Pressure 112/73 12/31/2024 11:45 AM EST Pulse 73 12/31/2024 11:45 AM EST Temperature 36.2 °C (97.2 °F) 12/31/2024 11:[address] Respiratory Rate 16 12/31/2024 11:45 AM EST Oxygen Saturation 96% 12/31/2024 11:45 AM EST Inhaled Oxygen Concentration - - Weight - - Height - - Body Mass Index - - documented in this encounter Discharge Instructions * Discharge Instr - AVS* Alfredito Cameron MD - 12/31/2024 11:02 AM EST Discharge Date: 12/31/2024 Check your Patient Education Brochure for further information. If you have any further questions call your physician at [phone]. The information below provides you with the instructions and the list of medications you need to betaking following discharge from the hospital. If you have any questions, please ask before leaving.Please carry this letter with you when you see your doctor in the clinic. If you have questions, you can reach us at the numbers above. Procedure - Excisional Breast Procedures Incision Care: If present, remove any outer dressing(s) in 24 hours. The incision(s) may be sealed with a skin adhesive (Dermabond) or covered with white adhesive tapes known as steri-strips. Either way, there is no need to cover up the incisions again with gauze. Shower: You may shower 24 hours after surgery and get the incision(s) or steri-strips wet with soapy water and gently pat them dry. If the steri-strips come off in the shower, do not become concerned. If they are still in place 10 days after surgery, you may remove them. Pain Medication: You will be given a prescription for a narcotic pain medication. Options for non-constipating pain medications include products that include Ibuprofen or Tylenol. To combat constipation, you may vwymuuxd-xpq-smlemxo laxatives, fiber therapy, or prune juice. Apply an ice pack to the incision (20 min on, 20 min off) for the first 24-48 hours to help with pain and swelling. Activity: Rest today. Do not do any heavy lifting (more than 10 pounds) or vigorous exercise for 1-2 weeks. After that you may resume normal activities. Diet: You can eat anything you desire. If your throat is sore, try eating soft foods. Return to Work: You may return to work in 2 - 5 days depending on how you are feeling. Physician Appt: If you have not already scheduled your appointment for a post-operative visit, please call [phone] to do so. You may leave a message and we will return your call. Biopsy Results: It normally takes 4-5 working days for the pathology lab to process the biopsy. This usually works out well, so we can review your pathology with you on your follow-up visit. When to call your Surgeon: Persistent fever over 101.5 degrees F (39C). Pain that is not relieved by your medications. Persistent nausea or vomiting. Persistent cough or shortness of breath. Purulent drainage (pus) or bleeding from any incision. Redness surrounding any of your incisions that is worsening or getting bigger. If you are unable to eat or drink liquids. In case of Emergency: A surgeon from our practice is available 24 hrs a day. For routine problems you may call our officeFriday through Friday between the hours of 8:00am and 5:00pm. The number is [phone]. After hours and on weekends you may call the hospital trimming press operator at [phone]. In the event of an emergency, please go to the nearest emergency department or call 911. Have You Signed Up for [email or web address]? To access portions of your medical record and to communicate with your [facility] physicians electronically, logon to [email or web address], your online health management tool. documented in this encounter Progress Notes * Alfredito Cameron MD - 12/31/2024 11:00 AM EST [address] [address] OUTPATIENT SURGERY DISCHARGE SUMMARY NOTE Name: Eric Marie Location: [facility]/[place] Date: 12/31/2024 Time: 11:00 AM Surgery Date: 12/31/2024 Procedure: MASTECTOMY PARTIAL Right Surgeon: Alfredito Cameron MD Discharge Diagnosis: Gynecomastia; Subareolar mass of right breast After examination of this patient, I have determined he is ready for discharge to home when the patient meets criteria. Discharge instructions were given to the patient. documented in this encounter H&P Notes * Alfredito Cameron MD - 12/31/2024 9:23 AM EST GENERAL HISTORY & PHYSICAL EXAMINATION - General Surgery Service [facility]-[address] [address] Name: Eric Marie Location: OR [facility]/[place] Date: 12/31/2024 Time: 9:23 AM CC: Right gynecomastia, subareolar painful lump HPI: 29-old male presents for evaluation of right subareolar lump / gynecomastia. He has had it for2+ years. He states that in the past he had used exogenous steroids and believes this may be the cause. He denies current alcohol or marijuana use. He had an US and mammogram in 2022 that demonstrated gynecomastia. The area has not enlarged but it will become inflamed and sore on occasion and is very tender when it gets hit. Subjective ROS: CONST: no weight loss, no fever, no fatigue EYES: no changes in vision ENT: no changes in hearing, no sinus problems, no sore throat, no hoarseness, no nodes RESP: no cough, no wheezing, no SOB, no change in breathing CV: no chest pain, no dyspnea, no palpitations, no edema GI: no melena, no hemetemesis, no vomiting, no diarrhea, no constipation : no dysuria, no hematuria, no frequency MSK: no change in joint pains, no new arthritis PSYCH: no anxiety, no depression HEME: no bleeding tendency, no clotting tendency NEURO: no significant headache, no seizures, no strokes SKIN: no new rashes, no itching Past Medical History Past Medical History: Diagnosis Date Gastroesophageal reflux disease without esophagitis 12/02/2022 H/O aortic root repair 08/15/2022 Non-cardiac chest pain 07/11/2022 Intermittent when lifting weights Obesity, Class I, BMI 30.0-34.9 (see actual BMI) 11/28/2022 Overweight (BMI 25.0-29.9) 07/11/2022 Medication List Current Medications - Prior to This Encounter Medication Sig Last Dose Discont. SUMAtriptan Succinate 50 MG Oral Tablet (Imitrex) Take 1 tablet at onset of migraine and one tabletevery 2 hours as needed, not more than 5 tablets in 24 hours 12/20/2024 Mens Multi Vitamin & Mineral Oral Tablet Take by mouth. 12/20/2024 Vitamin B-12 500 MCG Oral Tablet (vitamin B-12) Take 1 Tablet by mouth in the morning. 12/20/2024 Aspirin 81 MG Oral Tablet Chewable Take 1 Tablet by mouth in the morning. Do not start before December 10, 2022. 12/20/2024 Allergies Review of patient's allergies indicates: No Known Allergies Past Surgical History Past Surgical History: Procedure Laterality Date ASCENDING AORTA GRAFT W/BYPASS,ROOT REMODEL N/A 08/07/2022 ASCENDING AORTIC GRAFT WITH CARDIAC BYPASS SHELTON PROCEDURE performed by Ramsey Díaz MD at [facility] INFORMATION 08/07/2022 Getting MAEQUEAngelika #[id number] aorta graft PERICARDIOCENT INTL/HOSP ONLY Left 11/21/2022 PERICARDIOCENTESIS performed by Yuki Rao MD at [facility] TONSILLECTOMY & ADENOIDECTOMY LESS THAN AGE 11 Bilateral Family History Family History Problem Relation Name Age of Onset No Known Problems Mother No Known Problems Sister No Known Problems Brother No Known Problems Grandmother (Maternal) No Known Problems Daughter No Known Problems Daughter Social History Social History Tobacco Use Smoking status: Never Passive exposure: Past Smokeless tobacco: Former Types: Chew Quit date: 04/14/2022 Tobacco comments: chewed 1 can/day for approx 7 years Vaping Use Vaping status: Never Used Substance Use Topics Alcohol use: Yes Alcohol/week: 3.0 - 4.0 standard drinks of alcohol Types: 3 - 4 12 oz of beer per week Comment: Once a month or so Drug use: No Objective EXAM: BP 132/90 | Pulse 77 | Temp 36.3 °C (97.3 °F) (Tympanic) | Resp 18 | SpO2 100% GENERAL: alert, healthy, and no distress HEAD: Normocephalic, No masses, lesions, tenderness or abnormalities EYES: sclera clear EARS: External ears normal NOSE: no mucosal erythema MOUTH: mucous membranes are moist BREAST: bilateral breasts symmetric; no architectural distortion; no dominant masses; small palpable tender lump under right areola NEURO: alert & oriented x 3 with fluent speech, no focal motor/sensory deficits SKIN: skin color, texture, turgor are normal, no rashes or significant lesions Assessment & Plan ASSESSMENT: ICD-10-CM 1. Gynecomastia N62 2. Subareolar lump of right breast N63.41 Discussed diagnosis with patient. Given chronicity of findings it is unlikely to resolve with more observation. Patient interested in excision. We discussed operative risks of seroma and hematoma andlong-term sensory changes of the nipple, including hypersensitivity or loss of sensation. PLAN: Right subareolar partial mastectomy for gynecomastia G Willie Cameron MD documented in this encounter Nursing Notes * Viki Hester RN - 12/30/2024 9:35 AM EST Unable to reach parent or patient by phone prior to surgery to complete anesthesia record . I/O surgery contacts with instructions the evening before surgery Chart review completed. 12/22/2024 Cardiology clearance note in a TE in Network18. * Viki Hester RN - 12/22/2024 1:55 PM EST Left message on mobile phone for return call @ [phone] by Patient prior to surgery date or to leave a number where they can be reached . Instructed clinic open hours are M-F 8:00a- 4:00p. documented in this encounter OR Notes * OR Surgeon - Alfredito Cameron MD - 12/31/2024 10:53 AM EST [address] [address] OPERATIVE REPORT Name: Eric Marie Date: 12/31/2024 Time: 10:53 AM Location: OR [facility] Service: General Surgery Date of Operation: 12/31/2024 Pre-op Diagnosis: Gynecomastia; Subareolar lump of right breast Post-op Diagnosis: Same Surgeon: Alfredito Cameron MD Assistants: None Anesthesia: General Operation: Right subareolar mastectomy Findings: Subareolar mass of right breast Case Acuity: Elective Wound Class: Clean Specimen and Disposition: Subareolar mass to pathology Estimated Blood Loss: Negligible Drains/Implants: none Complications: none Postoperative Condition: stable Indications and History: Mr. Marie is a 29-year-old male with tender gynecomastia of the right breast that has been present for over nine months. He desires excision for treatment. Description of Operation: The patient was brought to the operating room, correctly identified as Eric Marie, and positioned supine on the operating room table. After induction of general anesthesia, the right breast wasprepped and sterilely draped. A timeout was performed, and the correct patient, procedure, and laterality were verified. A mima-circumareolar incision along the lateral right nipple was marked and infiltrated with 0.5% Marcaine with epinephrine. The incision was made with a 15 blade. The subareolar mass was identified immediately, circumferentially dissected with scissors, and removed. There was negligible bleeding, controlled with cautery. The incision was closed in layers using 3-0 Vicryl for an interrupted subdermal layer and 4-0 Monocryl for a running subcuticular layer. Mastisol and Steri-strips were placed,secured with gauze and tape. This terminated the procedure. At the end, all sponge and instrument counts were correct. The patient was awakened and brought to recovery in stable condition. There were no complications. Attestation: I performed the procedure documented in this encounter Plan of Treatment Upcoming Encounters Date Type Department Care Team (Late st Contact Info) Description 01/13/2025 10:15 AM EDT Office Visit General Surgery Anjana Wolff [address] [address] Alfredito Cameron MD [address] [place] [place] [address] 03/24/2025 3:00 PM EDT Telemedicine Cardiothoracic Surg [facility] [address] [place] [address] Ramsey Díaz MD [address] [place] [address] 07/06/2025 1:30 PM EDT Office Visit Cardiology, [facility] [address] [facility] [place] [address] Ana Freedman PA-C [address] [facility] [place] [address] Pending Results Name Type Priority Associated Diagnoses Date /Time SURGICAL PATHOLOGY Pathology Routine Gynecomastia Subareolar lump of right breast 12/31/2024 10:26 AM EST Scheduled Orders Name Type Priority Associated Diagnoses Orde r Schedule SURGICAL PATHOLOGY Pathology Routine Gynecomastia Subareolar lump of right breast Release Upon Ordering for 1 Occurrences starting 12/31/2024 Health Maintenance Due Date Last Done Comments [...] this encounter Medical Devices Implanted Type Area Gas Plant Worker Device Identifier Shelf Expiration Date Model / Serial / Lot Graft Aortic Root 32mm - [id number] Implanted:Qty : 1 on 08/07/2022 by Ramsey Díaz MD [place] [facility] [place]/A: Aorta GETINGE : MAQUET [id number] 04/25/2027 IV77 .0095 8 / [id number] Suture Steel 6 B&S19 M654g - [id number] Implanted:Qty : 8 on 08/07/2022 by Ramsey Díaz MD at [place] [facility] [place] N/A: Sternum JNJ : [employer] 05/26/2027 M654G / / [id number] Cath Perivac Kit Str 8.3f - [id number] Implanted:Qty : 1 on 11/21/2022 by Yuki Rao MD at [facility] [place] [employer] [id number] 12/24/2024 [id number] / / [id number] documented as of this encounter Procedures Procedure Name Priority Date/Time Associated Diagnosis Comments GLUCOSE METER, POINT OF CARE Routine 12/31/2024 8:07 AM EST documented in this encounter Results * GLUCOSE METER, POINT OF CARE (12/31/2024 8:07 AM EST) Glucose - POCT 93 70 - 120 mg/dL 12/31/2024 8:10 AM EST [facility] Blood 12/31/2024 8:07 AM EST 12/31/2024 8:10 AM EST us Steve Arcos MD LAB POINT OF C ARE TEST DOCKED DEVICE UNSOLICITED RESULTS Final Result [facility] [address] [place] [address] documented in this encounter Visit Diagnoses Diagnosis Gynecomastia- Primary Hypertrophy of breast Subareolar lump of right breast documented in this encounter Administered Medications Inactive Administered Medications - up to 3 most recent administrations Medication Order MAR Action Action Date Dose Rate Site Acetaminophen (Tylenol) tab 975 mg 975 mg, Oral, ONCE, On Fri12/31/24 at 0815, For 1 dose, Maximum of 4 grams (4000 mg) per day., Pre-Op Given 12/31/2024 7:55 AM EST 975 mg celecoxib (CeleBREX) cap 400 mg 400 mg, Oral, ONCE, On Fri12/31/24 at 0815, For 1 dose, Do not use in patients with GFR <60 or patients receiving ketorolac., Pre-Op Given 12/31/2024 7:56 AM EST 400 mg chlorhexidine gluconate cloth 2 % pad 1 Pad 1 Pad, External, PREOP, First dose on Fri12/31/24 at 0815, Last dose on Fri12/31/24 at 0815, For 1 dose, Cleanse surgical site area immediately before transferring intra-op, Pre-Op Given 12/31/2024 8:15 AM EST 1 Pad Isolyte-S pH 7.4 infusion Intravenous, at 100 mL/hr, Plasma-LYTE 148, isolyte-S, and isolyte-S pH 7.4 are considered equivalent - including for MAR barcode scanning., CONTINUOUS, Starting on Fri12/31/24 at 0815, Until Fri12/31/24 at 1604, Pre-Op Continue from Pre-Op 12/31/2024 9:34 AM EST 100 mL/hr New Bag 12/31/2024 8:17 AM EST 100 mL/hr Metoclopramide (Reglan) inj 10 mg 10 mg, IV Push, ONCE, On Fri12/31/24 at 0815, For 1 dose, Pre-Op Given 12/31/2024 8:13 AM EST 10 mg OLANZapine (zyPREXA) tab 5 mg 5 mg, Oral, ONCE, On Fri12/31/24 at 0815, For 1 dose, Pre-Op Given 12/31/2024 7:56 AM EST 5 mg Povidone-Iodine nasal swab 2 Swab 2 Swab, Nasal, ONCE, On Fri12/31/24 at 0830, For 1 dose, Administer as per orthotist prosthetist instructions unless contraindicated., Pre-Op Given 12/31/2024 8:30 AM EST 2 Swabs documented in this encounter Active and Recently Administered Medications Times are shown in EST. Scheduled Medication Order 12/29/2024 12/30/2024 12/31/2024 Acetaminophen (Tylenol) tab 650 mg 650 mg, Oral, ONCE, On Fri12/31/24 at 1145, For 1 dose, Post-op 1145 (Due) Acetaminophen (Tylenol) tab 975 mg (COMPLETED) 975 mg, Oral, ONCE, On Fri12/31/24 at 0815, For 1 dose, Maximum of 4 grams (4000 mg) per day., Pre-Op 075 (Given - Provid er: Amena Barber RN) ceFAZolin in dextrose (Ancef) ivpb 2 g (COMPLETED) 2 g, IV Piggyback, PREOP, 1 dose, First dose on Fri12/31/24 at 0815, Administer 60 minutes prior to skin incision, Pre-Op 944 (Given - Provid er: Livia Walters CRNA) celecoxib (CeleBREX) cap 400 mg (COMPLETED) 400 mg, Oral, ONCE, On Fri12/31/24 at 0815, For 1 dose, Do not use in patients with GFR <60 or patients receiving ketorolac., Pre-Op 755 (Given - Provid er: Amena Barber RN) chlorhexidine gluconate cloth 2 % pad 1 Pad (COMPLETED) 1 Pad, External, PREOP, First dose on Fri12/31/24 at 0815, Last dose on Fri12/31/24 at 0815, For 1 dose, Cleanse surgical site area immediately before transferring intra-op, Pre-Op 814 (Given - Provid er: Amena Barber RN) Metoclopramide (Reglan) inj 10 mg (COMPLETED) 10 mg, IV Push, ONCE, On Fri12/31/24 at 0815, For 1 dose, Pre-Op 812 (Given - Provid er: Amena Barber RN) OLANZapine (zyPREXA) tab 5 mg (COMPLETED) 5 mg, Oral, ONCE, On Fri12/31/24 at 0815, For 1 dose, Pre-Op 755 (Given - Provid er: Amena Barber RN) Povidone-Iodine nasal swab 2 Swab (COMPLETED) 2 Swab, Nasal, ONCE, On Fri12/31/24 at 0830, For 1 dose, Administer as per orthotist prosthetist instructions unless contraindicated., Pre-Op 0830 (Given - Provid er: Amena Barber RN) Continuous Medication Order 12/29/2024 12/30/2024 12/31/2024 Isolyte-S pH 7.4 infusion Intravenous, at 100 mL/hr, Plasma-LYTE 148, isolyte-S, and isolyte-S pH 7.4 are considered equivalent - including for MAR barcode scanning., CONTINUOUS, Starting on Fri12/31/24 at 0815, Until Fri12/31/24 at 1604, Pre-Op 0817 (New Bag - Prov ider: Amena Barber RN)0934 (Continue from Pre-Op - Provider: Livia Walters CRNA)1044 (Anes Intra-Op Fluid - Provider: Livia Walters CRNA) PRN Medication Order 12/29/2024 12/30/2024 12/31/2024 BUPivacaine-EPINEPHrine (Sensorcaine W/ Epi) 0.5%-1:579204 inj (CANCELED) ONCE PRN INTRA PROCEDURE, Starting on Fri12/31/24 at 1010, Until Fri12/31/24 at 1044, Intra-Op 1010 (Given - Provid er: Alfredito Cameron MD) oxyCODONE (Oxy IR) tab 5 mg 5 mg, Oral, ONCE PRN Pain, Severe, Starting on Fri12/31/24 at 1103, Until Fri12/31/24 at 1604, For 1 dose, Post-op documented in this encounter Advance Directives * [...] Advance Directives occurred with: Patient Care Teams Infertility Nurse Relationship Specialty Start Date End Date Raghu Sandhu MD [address] [address] PCP - General Family Medicine 11/02/24 documented as of this encounter"
--- OUTSIDE RECORDS SUMMARY | 2025-01-22 11:14 | External Medical Summary | Summary of Care ---
Author Name Unknown Organization [facility] Address [address] [place] [place] [address] Phone [phone] Care Team Providers Care Ceramics Test Engineer Name Role Phone Raghu Sandhu MD Primary Care Provider Reason for Referral * Evaluate & Treat - Unlimited Visits (Within 10 days (routine)) - Authorized Specialty Diagnoses / Procedures Referred By Contact Referred To Contact Cardiovascular Medicine / Cardiology Diagnoses Gynecomastia Subareolar lump of right breast Alfredito Cameron MD [address] [address] Phone: tel: fax: Referral ID Status Reason Start Date Expiration Date Visits Requested Visits Authorized [id number] Authorized Specialty Services Required 12/22/[phone] [...] [id number] Alfredito Cameron MD [address] [id number] Surgery Allergies No known active allergiesdocumented as [...] money to buy more. Never true 10/29/19 Within the past 12 months, t he [...] 12/31/2024 1:26 PM EST Hospital Encounter OR [facility], Operating Room, [facility] - 4th Floor [address] [facility] [place] [address] Alfredito Cameron MD [address] [address] 12/31/2024 1:26 PM EST - 12/31/2024 3:06 PM EST Surgery OR [facility], Operating Room, [facility] Floor [address] [place] [address] Alfredito Cameron MD [address] [address] MASTECTOMY PARTIAL 01/13/2025 10:15 AM EDT Office Visit General Surgery Anjana Wolff [address] [place] [address] [place] [address] Alfredito Cameron MD [address] [address] [address] 03/24/2025 3:00 PM EDT Telemedicine Cardiothoracic Surg [facility] [place] [address] [place] [address] Ramsey Díaz MD [address] [place] [address] Scheduled Procedures Name Priority Associated Diagnoses Date/Ti [...] this encounter Medical Devices Implanted Type Area Environmental Compliance Technician Device Identifier Shelf Expiration Date Model / Serial / Lot Graft Aortic Root 32mm - [id number] Implanted:Qty : 1 on 08/07/2022 by Ramsey Díaz [place] [facility]: Aorta GETINGE : MAQUET [id number] 04/25/2027 IV77 .0095 8 / [id number] Suture Steel 6 B&S19 M654g - [id number] Implanted:Qty : 8 on 08/07/2022 by Ramsey Díaz MD [place] [facility] [place]/A: Sternum JNJ : [employer] 05/26/2027 M654G / / [id number] Cath Perivac Kit Str 8.3f - [id number] Implanted:Qty : 1 on 11/21/2022 by Yuki Rao MD at [facility] [employer] [id number] 12/24/2024 [id number] AC1S0 / / [id number] documented as of this encounter Visit Diagnoses [...] Advance Directives occurred with: Patient Care Teams Ceramics Test Engineer Relationship Specialty Start Date End Date Raghu Sandhu MD [address] [facility] [place] [address] PCP - General Family Medicine 11/02/24 documented as of this encounter
--- OUTSIDE RECORDS SUMMARY | 2025-01-22 11:14 | External Medical Summary | Summary of Care ---
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 Pain back of eyes, he was on medication from Neuro but has stopped it. They are everyday now and mostly front of head and eyes. Encounter Details Date Type Department Care Team (Late st Contact Info) Description 01/06/2025 8:40 AM EDT Office Visit [facility] 132 [facility] [place] [address] Diamond Rudd, 132 [facility] [place] [address] Migraine with aura and without status migrainosus, not intractable*; Migraine variant Allergies No known active allergiesdocumented as of this encounter (statuses as of 01/06/2025) Medications Aspirin 81 MG Oral Tablet Chewable Take 1 Tablet by mouth in the morning. Do not start before December 10, 2022. 30 Tablet 2 3 Active Vitamin B-12 500 MCG Oral Tablet (vitamin B-12) Take 1 Tablet by mouth in the morning. Active Mens Multi Vitamin & Mineral Oral Tablet Take by mouth. Activ e SUMAtriptan Succinate 50 MG Oral Tablet (Imitrex) Take 1 tablet at onset of migraine and one tablet every 2 hours as needed, not more than 5 tablets in 24 hours 6 Tablet 5 Active Additional Information Patient not taking.Reported on 01/06/2025 Acetaminophen 325 MG Oral Tablet (Tylenol) Take 2 Tablets by mouth every 6 hours as needed (Mild, Moderate, Severe pain) for up to 10 days. 80 Tablet 12/31/2024 11:45 AM EST 5 01/11/20 25 Active Ibuprofen 200 MG Oral Tablet (Motrin) Take 2 Tablets by mouth every 6 hours as needed (Moderate, Severe Pain) for up to 10 days. 80 Tablet 12/31/2024 11:45 AM EST 5 01/11/20 25 Active Amitriptyline HCl 10 MG Oral Tablet (Elavil)Indicat ions:Migraine with aura and without status migrainosus, not intractable,Buck geovani variant Take 1 Tablet by mouth at bedtime. Increase by 10 mg per week up to 50 mg at bedtime if needed 30 Tablet 1 Active documented as of this encounter (statuses as of 01/06/2025) Active Problems Problem Noted Date Diagnosed Date Gynecomastia 12/21/2024 Subareolar lump of right breast 12/21/2024 SVT (supraventricular tachycardia) 06/02/2024 H/O aortic root repair 10/08/2023 History of pericarditis 02/13/2023 Gastroesophageal reflux disease without esophagi tis 12/02/2022 Overweight (BMI 25.0-29.9) 07/11/2022 documented as of this encounter (statuses as of 01/06/2025) Resolved Problems Problem Noted Date Diagnosed Date [...] as of this encounter (statuses as of 01/06/2025) Immunizations Name Administration Dates Next Due HepA [...] Past Smokeless Tobacco: Former Chew Quit: 04/14/2022 Tobacco Cessation:Counseling Given: Not Answered Comments:chewed 1 can/day for approx 7 years Alcohol Use Standard Drinks/Week [...] Sign Reading Time Taken Comments Blood Pressure 112/72 01/06/2025 8:28 AM EDT Pulse 71 01/06/2025 8:28 AM EDT Temperature 36 °C (96.8 °F) 01/06/2025 8:28 AM EDT Respiratory Rate 16 01/06/2025 8:28 AM EDT Oxygen Saturation - - Inhaled Oxygen Concentration - - Weight 108.4 kg (239 lb) 01/06/2025 8:28 AM EDT Height - - Body Mass Index 29.71 10/29/2024 10:28 AM EST documented in this encounter Progress Notes * Diamond Rudd, DO - 01/06/2025 8:40 AM EDT Subjective: Eric Marie is a 29 year old male. Chief Complaint Patient presents with Acute Pt being seen for migraines, vision issues, numbness in forehead. Pain back of eyes, he was on medication from Neuro but has stopped it. They are everyday now and mostly front of head and eyes. There are no exam notes on file for this visit. HPI: This is a 29 year old male with PMHx as below presents with ongoing illness Headaches daily, paresthesias forehead, vision issues Neuro is following for these sx - has follow up appt January topamax Not taking imitrex Is to have MRI brain done Currently taking tylenol There are no preventive care reminders to display for this patient. Patient Active Problem List Diagnosis Overweight (BMI 25.0-29.9) Gastroesophageal reflux disease without esophagitis History of pericarditis H/O aortic root repair SVT (supraventricular tachycardia) (HCC) Gynecomastia Subareolar lump of right breast Current Outpatient Medications Medication Sig Dispense Refill Aspirin 81 MG Oral Tablet Chewable Take 1 Tablet by mouth in the morning. Do not start before December 10, 2022. 30 Tablet 2 Vitamin B-12 500 MCG Oral Tablet (vitamin B-12) Take 1 Tablet by mouth in the morning. Mens Multi Vitamin & Mineral Oral Tablet Take by mouth. SUMAtriptan Succinate 50 MG Oral Tablet (Imitrex) Take 1 tablet at onset of migraine and one tabletevery 2 hours as needed, not more than 5 tablets in 24 hours (Patient not taking: Reported on 01/06/2025) 6 Tablet 5 Acetaminophen 325 MG Oral Tablet (Tylenol) Take 2 Tablets by mouth every 6 hours as needed (Mild, Moderate, Severe pain) for up to 10 days. 80 Tablet 0 Ibuprofen 200 MG Oral Tablet (Motrin) Take 2 Tablets by mouth every 6 hours as needed (Moderate, Severe Pain) for up to 10 days. 80 Tablet 0 No current facility-administered medications for this visit. Past Medical History: Diagnosis Date Gastroesophageal reflux disease without esophagitis 12/02/2022 H/O aortic root repair 08/15/2022 Non-cardiac chest pain 07/11/2022 Intermittent when lifting weights Obesity, Class I, BMI 30.0-34.9 (see actual BMI) 11/28/2022 Overweight (BMI 25.0-29.9) 07/11/2022 Past Surgical History: Procedure Laterality Date ASCENDING AORTA GRAFT W/BYPASS,ROOT REMODEL N/A 08/07/2022 ASCENDING AORTIC GRAFT WITH CARDIAC BYPASS SHELTON PROCEDURE performed by Ramsey Díaz MD at [facility] INFORMATION 08/07/2022 Rose BO #[id number] aorta graft MASTECTOMY, PARTIAL Right 12/31/2024 MASTECTOMY PARTIAL performed by Alfredito Cameron MD at OR [facility] PERICARDIOCENT INTL/HOSP ONLY Left 11/21/2022 PERICARDIOCENTESIS performed by Yuki Rao MD at [facility] [place] TONSILLECTOMY & ADENOIDECTOMY LESS THAN AGE 12 Bilateral Review of patient's allergies indicates: No Known Allergies Family History Problem Relation Name Age of Onset No Known Problems Mother No Known Problems Sister No Known Problems Brother No Known Problems Grandmother (Maternal) No Known Problems Daughter No Known Problems Daughter Family Status Relation Status Mo Alive Fa Alive Sis Alive Bro Alive MGMA Alive MGFA Jeanine Alive Jeanine Alive Social History Socioeconomic History Marital status: Spouse name: Not on file Number of children: Not on file Years of education: Not on file Highest education level: Not on file Occupational History Not on file Tobacco Use Smoking status: Never Passive exposure: Past Smokeless tobacco: Former Types: Chew Quit date: 04/14/2022 Tobacco comments: chewed 1 can/day for approx 7 years Vaping Use Vaping status: Never Used Substance and Sexual Activity Alcohol use: Yes Alcohol/week: 3.0 - 4.0 standard drinks of alcohol Types: 3 - 4 12 oz of beer per week Comment: Once a month or so Drug use: No Sexual activity: Not on file Other Topics Concern Not on file Social History Narrative Not on file Social Needs Financial Resource Strain: Low Risk (10/29/2024) Financial Resource Strain Do you have any trouble paying for your medications, or do you think you might in the future? (Adult - for ages 18 years and over): No Does your family have trouble paying for medicine? (Household - for ages 0-17 years): Not on file Food Insecurity: No Food Insecurity (10/29/2024) Food Insecurity Worried About Running Out of Food in the Last Year: Never true Ran Out of Food in the Last Year: Never true Do you need food for this week? (Adult - for ages 18 years and over): No Transportation Needs: No Transportation Needs (10/29/2024) Transportation Needs Do you have trouble getting a ride to medical visits or work? (Adult - for ages 18 years and over):Not on file Does your family have a hard time getting a ride to doctors’ visits? (Household - for ages 0-17 years): Not on file Has lack of transportation kept you from medical appointments, meetings, work, or from getting things needed for daily living? Check all that apply. (Adult - for ages 18 years and over): No Do you (or your family) have trouble finding or paying for a ride (transportation)? (Household - for ages 0-17 years): Not on file Social Connections: Socially Integrated (10/29/2024) Social Connections How often do you feel lonely or isolated from those around you? (Adult - for ages 18 years and over): Never Housing Stability: Low Risk (10/29/2024) Housing Stability Do you currently live in a mcfp or have no steady place to sleep at night? (Adult - for ages 18 years and over): No Do you think you are at risk of becoming homeless? (Adult - for ages 18 years and over): Not on file Does your family worry about paying for your home or becoming homeless? (Household - for ages 0-17 years): Not on file Are you homeless or worried that you might be in the future? (Adult - for ages 18 years and over): No Are you (or your family) homeless or worried that you might be in the future? (Household - for ages0-17 years): Not on file Review of Systems: As per HPI all other ROS negative. Wt Readings from Last 3 Encounters: 01/06/25 239 lb (108.4 kg) 12/21/24 241 lb 11.2 oz (109.6 kg) 10/29/24 238 lb 9.6 oz (108.2 kg) Results for orders placed or performed during the hospital encounter of 12/31/24 GLUCOSE METER, POINT OF CARE Result Value Ref Range Glucose - POCT 93 70 - 120 mg/dL OBJECTIVE: Physical Exam: BP 112/72 | Pulse 71 | Temp 96.8 °F (36 °C) (Tympanic) | Resp 16 | Wt 239 lb (108.4 kg) | BMI 29.71 kg/m² | BSA 2.4 m² General: alert, healthy, and no distress Head: Normocephalic, No masses, lesions, tenderness or abnormalities Eye Exam: PERRLA, extraocular movements intact, conjunctiva are pink and non- injected, sclera clear Ears: External ears normal, Canals clear, TM's Normal Oropharynx: no exudate, no erythema, lips, buccal mucosa, and tongue normal, and mucous membranes are moist Heart: regular rate & rhythm, no murmur, and no gallops Lungs: lungs clear to auscultation Neuro Exam: alert & oriented x 3 with fluent speech, no focal motor/sensory deficits, gait normal Migraine with aura and without status migrainosus, not intractable (Primary) - Amitriptyline HCl 10 MG Oral Tablet (Elavil); Take 1 Tablet by mouth at bedtime. Increase by 10 mg per week up to 50 mg at bedtime if needed Migraine variant - Amitriptyline HCl 10 MG Oral Tablet (Elavil); Take 1 Tablet by mouth at bedtime. Increase by 10 mg per week up to 50 mg at bedtime if needed Follow-up: Return if symptoms worsen or fail to improve. | Check-out note: Needs MRI brain scheduled - ordered by neuro Diamond Rudd DO documented in this encounter Plan of Treatment Upcoming Encounters Date Type Department Care Team (Late st Contact Info) Description 01/13/2025 10:15 AM EDT Office Visit General Surgery Anjana Wolff [address] [place] [address] Alfredito Cameron MD 27 [place] [address] 01/29/2025 8:45 AM EDT Imaging Radiology [address], [place] [address] [place] [address] 01/31/2025 2:00 PM EDT Office Visit Neurology [facility], [place]errat Rodríguez [address] [place] [address] Alona Irene PA-C [address] [facility] [address] [place] [address] 03/24/2025 3:00 PM EDT Telemedicine Cardiothoracic Surg [facility] [address] [place] [address] Ramsey Díaz MD [address] [place] [address] 07/06/2025 1:30 PM EDT Office Visit [facility]iology, [facility] [place] [address] Ana Freedman PA-C [address] [facility] [place] [address] Health Maintenance Due Date Last Done Comments [...] this encounter Medical Devices Implanted Type Area Business Management Associate Device Identifier Shelf Expiration Date Model / Serial / Lot Graft Aortic Root 32mm - [id number] Implanted:Qty : 1 on 08/07/2022 by Ramsey Díaz MD [place] [facility] [place]/A: Aorta GETINGE : MAQUET [id number] 04/25/2027 IV77 .0095 8 / [id number] Suture Steel 6 B&S19 M654g - [id number] Implanted:Qty : 8 on 08/07/2022 by Ramsey Díaz MD at [place] [facility] N/A: Sternum JNJ : [employer] 05/26/2027 M654G / / [id number] Cath Perivac Kit Str 8.3f - [id number] Implanted:Qty : 1 on 11/21/2022 by Yuki Rao MD at [facility] [employer] [id number] 12/24/2024 [id number] / / [id number] documented as of this encounter Visit Diagnoses Diagnosis Migraine with aura and without status migrainosus, not intractable- Primary Migraine with aura, without mention of intractable migraine without mention of status migrainosus Migraine variant Variants of migraine, not elsewhere classified, without mention of intractable migraine without mention of status migrainosus documented in this encounter Advance Directives * [...] Advance Directives occurred with: Patient 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
--- OUTSIDE RECORDS SUMMARY | 2025-01-22 11:14 | External Medical Summary | Summary of Care ---
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 Tender Name Role Phone Raghu Sandhu MD Primary Care Provider Reason for Visit * Reason Comments Post Op Surgery Encounter Details Date Type Department Care Team (Late st Contact Info) Description 01/18/2025 9:30 AM EDT Office Visit General Surgery Anjana Wolff [address] [place] [address] Hawa Shi PA-C [address] [place] [address] Postop check*; Gynecomastia Allergies No known active allergiesdocumented as of this encounter (statuses as of 01/18/2025) Medications Aspirin 81 MG Oral Tablet Chewable [...] tablets in 24 hours 6 Tablet 5 5 Active Additional Information Patient not taking.Reported on 01/18/2025 Amitriptyline HCl 10 MG Oral Tablet (Elavil)Indicat ions:Migraine with aura and without status migrainosus, not intractable,Buck geovani variant Take 1 Tablet by mouth at bedtime. Increase by 10 mg per week up to 50 mg at bedtime if needed 30 Tablet 1 Active documented as of this encounter (statuses as of 01/18/2025) Active Problems Problem Noted Date Diagnosed Date Gynecomastia 12/21/2024 Subareolar lump of right breast 12/21/2024 SVT (supraventricular tachycardia) 06/02/2024 H/O aortic root repair 10/08/2023 History of pericarditis 02/13/2023 Gastroesophageal reflux disease without esophagi tis 12/02/2022 Overweight (BMI 25.0-29.9) 07/11/2022 documented as of this encounter (statuses as of 01/18/2025) Resolved Problems Problem Noted Date Diagnosed Date [...] as of this encounter (statuses as of 01/18/2025) Immunizations Name Administration Dates Next Due HepA [...] Former Chew Quit: 04/14/2022 Tobacco Cessation:Counseling Given: No Comments:chewed 1 can/day for approx 7 years [...] Sign Reading Time Taken Comments Blood Pressure 114/68 01/18/2025 9:18 AM EDT Pulse 65 01/18/2025 9:18 AM EDT Temperature 36.3 °C (97.4 °F) 01/18/2025 9:18 AM ED T Respiratory Rate - - Oxygen Saturation - - Inhaled Oxygen Concentration - - Weight 109.8 kg (242 lb) 01/18/2025 9:18 AM EDT Height - - Body Mass Index 30.09 10/29/2024 10:28 AM EST documented in this encounter Progress Notes * Hawa Shi PA-C - 01/18/2025 9:14 AM EDT DOS: 01/18/2025 CC: PO HPI: Eric Marie is a 29 y/o M who is s/p Mastectomy Partial - Right on 12/31/[address] Cameron. He stated he has been feeling relatively well since the surgery. He noted he has intermittent mild right breast/incisional pain. He noted he has been having regular bowel movements and has his normal appetite. He stated he has been adhering to activity restrictions and has returned to work because he does not have lifting restrictions. He noted he has some irritation to incision due to visiblesuture. He denied fever, chills, nausea, vomiting, abdominal pain, changes in bowels, or incisionaldrainage/dehiscence. PE: Filed Vitals: 01/18/25 0918 BP: 114/68 Pulse: 65 Temp: 36.3 °C (97.4 °F) TempSrc: Temporal Artery Weight: 109.8 kg (242 lb) General: No acute distress, alert, healthy Right breast: No recurrent lump, erythema, tenderness; minimal ecchymosis Incision: Healing well without drainage or dehiscence, small suture tail noted Pathology: FINAL DIAGNOSIS Date/Time Value Ref Range Status 12/31/2024 10:26 AM Final A. Right breast, subcutaneous lump, excision: Gynecomastia No evidence of atypia or malignancy A: 29 y/o M who is s/p Mastectomy Partial - Right. No concerns P: - Pathology reviewed and provided to patient - Suture tail trimmed to skin edge - Avoid heavy lifting, pushing, or pulling more than 25 lb - Follow-up PRN - Please call with any questions or concerns Hawa Shi PA-C 01/18/2025 Cosigned by Alfredito Cameron MD at 01/18/2025 3:36 PM EDT documented in this encounter Nursing Notes * Lindy Blanco CMA - 01/18/2025 9:17 AM EDT Chief Complaint Patient presents with Post Op Surgery Pt here for post op Right subareolar mastectomy by Dr Cameron on 12/31/24. Patient doing well withno complications. Incision healing well. Denies redness, swelling, dehiscence, or drainage. Denies N/V, fevers, chills, sweats. Pain is 0/10. Bowels are moving well with no problems documented in this encounter Plan of Treatment Upcoming Encounters Date Type Department Care Team (Late st Contact Info) Description 01/29/2025 8:45 AM EDT Imaging Radiology [facility] [address] [place] [phone] 01/31/2025 2:00 PM EDT Office Visit Neurology [facility], Montserrat Rodríguez [address] [place] [address] Alona Irene PA-C [address] [facility] [address] [place] [address] 03/24/2025 3:00 PM EDT Telemedicine Cardiothoracic Surg [facility] [address] [place], [place] [id number] Ramsey Díaz MD [address] [place] [address] 07/06/2025 1:30 PM EDT Office Visit Cardiology, [facility] [address] [place] [phone] Ana Freedman PA-C [address] [place] [address] Health Maintenance Due Date Last Done Comments [...] this encounter Medical Devices Implanted Type Area Tube Winder Device Identifier Shelf Expiration Date Model / Serial / Lot Graft Aortic Root 32mm - [id number] Implanted:Qty : 1 on 08/07/2022 by Ramsey Díaz MD at OR [facility] N/A: Aorta GETINGE : ANUPAM [id number] 04/25/2027 IV77 .0095 8 / [id number] / 22G14 Suture Steel 6 B&S19 M654g - [id number] Implanted:Qty : 8 on 08/07/2022 by Ramsey Díaz MD at OR [facility] N/A: Sternum JNJ : [employer] 05/26/2027 M654G / / [id number] Cath Perivac Kit Str 8.3f - [id number] Implanted:Qty : 1 on 11/21/2022 by Yuki Rao MD at [facility] [employer] [id number] 12/24/2024 [id number] AC1S0 / / [id number] documented as of this encounter Visit Diagnoses Diagnosis Postop check- Primary Follow-up examination, following unspecified surgery Gynecomastia Hypertrophy of breast documented in this encounter Advance Directives [...] Advance Directives occurred with: Patient Care Teams Brusher Tender Relationship Specialty Start Date End Date Raghu Sandhu MD 132 [facility] [place] [address] PCP - General Family Medicine 11/02/24 documented as of this encounter
--- OUTSIDE RECORDS SUMMARY | 2025-01-22 11:14 | External Medical Summary | Summary of Care ---
Author Name Unknown Organization [facility] Address [address] [facility] [place] [address] Phone [phone] Care Team Providers Care Pastrycook Name Role Phone aRghu Sandhu MD Primary Care Provider Reason for Visit * Reason Onset Date Comments Medication Question 12/22/2024 Pre-op Clearance 12/22/2024 Tano Encounter Details Date Type Department Care Team (Late st Contact Info) Description 12/22/2024 Telephone Cardiology, [facility] [address] [place] [address] Ana Freedman PA-C [address] [place] [phone] Medication Question; Pre-op Clearance (Tano) Allergies No [...] 3:21 PM EST Sent pt message via [employer] for Jo at [facility] OR * Telephone Encounter - Ana [...] Person calling: Jo Relationship to patient: OR 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 Awaiting reply. Procedure [...] to patient: self Phone/Fax to return call: [phone] Reason for call(brief): pre op clearance/metoprolol Pharmacy: [...] Room, [facility] - 4[facility] Floor [address] [place] [address] Alfredito Cameron MD [address] [place] [address] 12/31/2024 1:26 PM EST - 12/31/2024 3:06 PM EST Surgery OR [facility], Operating Room, [facility] - 4th Floor [address] [place] [address] Alfredito Cameron MD [address] [place] [address] MASTECTOMY PARTIAL 01/13/2025 10:15 AM EDT Office Visit General Surgery [address] [facility] [address] [place] [address] Alfredito Cameron MD [address] [place] [address] 03/24/2025 3:00 PM EDT Telemedicine Cardiothoracic Surg [facility] [address] [place] [address] Ramsey Díaz MD [address] [place] [address] 07/06/2025 1:30 PM EDT Office Visit Cardiology, [facility] [address] [place] [address] Ana Freedman PA-C [address] [place] [address] Scheduled Procedures Name Priority Associated Diagnoses Date/Ti [...] this encounter Medical Devices Implanted Type Area Publicity Agent Device Identifier Shelf Expiration Date Model / Serial / Lot Graft Aortic Root 32mm - [id number] Implanted:Qty : 1 on 08/07/2022 by Ramsey Díaz MD at [place] [facility] N/A: Aorta GETINGE : MAQUET [id number] 04/25/2027 IV77 .0095 8 / [id number] Suture Steel 6 B&S19 M654g - [id number] Implanted:Qty : 8 on 08/07/2022 by Ramsey Díaz MD at OR [facility] N/A: Sternum JNJ : [employer] 05/26/2027 M654G / / [id number] Cath Perivac Kit Str 8.3f - [id number] Implanted:Qty : 1 on 11/21/2022 by Yuki Rao MD at [facility] [employer] [id number] 12/24/2024 [id number] AC1S0 / / [id number] documented as of this encounter Advance Directives [...] Advance Directives occurred with: Patient Care Teams Pastrycook Relationship Specialty Start Date End Date Raghu Sandhu MD [address] [place] [address] PCP - General Family Medicine 11/02/24 documented as of this encounter
--- OUTSIDE RECORDS SUMMARY | 2025-01-22 11:15 | External Medical Summary | Summary of Care ---
Author Name Unknown Organization [facility] Address [address] [facility] [address] Phone [phone] Care Team Providers Care Speeder Operator Name Role Phone Raghu Sandhu MD Primary Care Provider Encounter Details Date Type Department Care Team (Late st Contact Info) Description 12/15/2024 Orders Only Family [facility] [address] [place] [address] Raghu Sandhu MD [address] [place] [address] Allergies No known active allergiesdocumented as of this encounter (statuses as of 12/15/2024) Medications Aspirin 81 MG Oral Tablet Chewable [...] Active Additional Information Patient not taking.Reported on 11/09/2024 Topiramate 25 MG Oral Tablet (Topamax) Take one 25mg tab at bedtime for one week, if tolerating increase to 50mg at bedtime for one week, then increase to 75mg at bedtime 90 Tablet 3 Active predniSONE 20 MG Oral Tablet (Deltasone) Take 60mg in AM x 3 days followed by 40mg in AM x 2 days followed by 20mg in AM x 2 days then stop. 15 Tablet 5 Active documented as of this encounter (statuses as of 12/15/2024) Active Problems Problem Noted Date Diagnosed Date SVT (supraventricular tachycardia) 06/02/2024 H/O aortic root repair 10/08/2023 History of pericarditis 02/13/2023 Gastroesophageal reflux disease without esophagi tis 12/02/2022 Overweight (BMI 25.0-29.9) 07/11/2022 documented as of this encounter (statuses as of 12/15/2024) Resolved Problems Problem Noted Date Diagnosed Date [...] as of this encounter (statuses as of 12/15/2024) Immunizations Name Administration Dates Next Due HepA [...] AM EST documented as of this encounter Plan of Treatment Upcoming Encounters Date Type Department Care Team (Late st Contact Info) Description 12/21/2024 9:30 AM EST Office Visit General Surgery Anjana Wolff [address] [place] [address] Alfredito Cameron MD [address] [place] [address] 03/24/2025 3:00 PM EDT Telemedicine Cardiothoracic Surg [facility] [address] [place] [address] Ramsey Díaz MD [address] [place] [address] 06/08/2025 9:00 AM EDT Office Visit Cardiology, [facility] [address] [place] [address] Ana Freedman PA-C [address] [place] [address] Health Maintenance Due Date Last Done Comments [...] this encounter Medical Devices Implanted Type Area Brand Executive Device Identifier Shelf Expiration Date Model / Serial / Lot Graft Aortic Root 32mm - [id number] Implanted:Qty : 1 on 08/07/2022 by Ramsey Díaz MD at OR [facility] [facility] N/A: Aorta GETINGE : MAQUET [id number] 04/25/2027 IV77 .0095 8 / [id number] Suture Steel 6 B&S19 M654g - [id number] Implanted:Qty : 8 on 08/07/2022 by Ramsey Díaz MD at OR [facility] [facility] N/A: Sternum JNJ : [employer] 05/26/2027 M654G / / [id number] Cath Perivac Kit Str 8.3f - [id number] Implanted:Qty : 1 on 11/21/2022 by Yuki Rao MD at CARDIAC LABS [facility] [place] [employer] [id number] 12/24/2024 [id number] AC1S0 / / [id number] documented as of this encounter Procedures Procedure Name Priority Date/Time Associated Diagnosis Comments CHEMISTRY-OUTSIDE Routine 12/14/2024 documented in this encounter Results * CHEMISTRY-OUTSIDE (12/14/2024) Not all results display below - see scan for full detail OUTSIDE LAB (SEE SCANNED REPORT) Comment:SCAN INCLUDES: BMP, MG, TROP, CBCD CREATININE 0.91 0.70 - 1.30 MG/DL OUTSIDE LAB (SEE SCANNED REPORT) EGFR >90 >=60 ML/MIN OUTSIDE LAB (SEE SCANNED REPORT) POTASSIUM 4.0 3.5 - 5.1 MMOL/L OUTSIDE LAB (SEE SCANNED REPORT) GLUCOSE 91 70 - 110 MG/DL OUTSIDE LAB (SEE SCANNED REPORT) HOURS FASTING OUTSID E LAB (SEE SCANNED REPORT) TRIGLYCERIDES-OUT SIDE LAB OUTSIDE LAB (SEE SCANNED REPORT) CHOLESTEROL-OUTSI DE LAB OUTSIDE LAB (SEE SCANNED REPORT) HDL-OUTSIDE LAB OUTS JONATHAN LAB (SEE SCANNED REPORT) CHOL/HDL RATIO-OUTSIDE LAB OUTSIDE LA B (SEE SCANNED REPORT) LDL (CALCULATED)-OUTS JONATHAN LAB OUTSIDE LAB (SEE SCANNED REPORT) LDL (DIRECT MEASURE)-OUTSIDE LAB OUTSIDE LAB (SEE SCANNED REPORT) HEMOGLOBIN, [id number] LAB OUTSIDE LAB (SEE SCANNED REPORT) PHOSPHORUS-OUTSID E LAB OUTSIDE LAB (SEE SCANNED REPORT) PTH-OUTSIDE LAB OUTS JONATHAN LAB (SEE SCANNED REPORT) MICROALBUMIN RATIO-OUTSIDE LAB OUTSIDE LA B (SEE SCANNED REPORT) PROTEIN, UA-OUTSIDE LAB OUTSIDE LAB (SEE SCANNED REPORT) HGB 15.2 13.5 - 18.0 GM/DL OUTSIDE LAB (SEE SCANNED REPORT) 12/14/2024 us Vu Mtz MD LABORATORY Final Resul t OUTSIDE LAB (SEE SCANNED REPORT) documented in this encounter Advance Directives * [...] Advance Directives occurred with: Patient Care Teams Speeder Operator Relationship Specialty Start Date End Date Raghu Sandhu MD [address] [facility] [place] [address] PCP - General Family Medicine 11/02/24 documented as of this encounter
--- OUTSIDE RECORDS SUMMARY | 2025-01-22 11:15 | External Medical Summary | Summary of Care ---
Author Name Unknown Organization [facility] Address [address] [facility] [place] [place] [address] Phone [phone] Care Team Providers Care Metal Fabricator Welder Name Role Phone Raghu Sandhu MD Primary Care Provider Reason for Referral * Evaluate & Treat - Unlimited Visits (Within 10 days (routine)) - Authorized Specialty Diagnoses / Procedures Referred By Contact Referred To Contact Cardiovascular Medicine / Cardiology Diagnoses Gynecomastia Subareolar lump of right breast Alfredito Cameron MD [address] [place] [address] Phone: tel: fax: Referral ID Status Reason Start Date Expiration Date Visits Requested Visits Authorized [id number] Authorized Specialty Services Required 12/22/2024 999 999 [...] [id number] Alfredito Cameron MD [address] [place] [id number] Surgery Allergies No known active allergiesdocumented as of this encounter (statuses as of 12/22/2024) Medications Aspirin 81 MG Oral Tablet Chewable [...] as of this encounter (statuses as of 12/22/2024) Active Problems Problem Noted Date Diagnosed Date Gynecomastia 12/21/2024 Subareolar lump of right breast 12/21/2024 SVT (supraventricular tachycardia) 06/02/2024 H/O aortic root repair 10/08/2023 History of pericarditis 02/13/2023 Gastroesophageal reflux disease without esophagi tis 12/02/2022 Overweight (BMI 25.0-29.9) 07/11/2022 documented as of this encounter (statuses as of 12/22/2024) Resolved Problems Problem Noted Date Diagnosed Date [...] as of this encounter (statuses as of 12/22/2024) Immunizations Name Administration Dates Next Due HepA [...] 12/31/2024 1:26 PM EST Hospital Encounter OR [facility], Operating Room, [facility] - 4th Floor [address] [facility] [place] [address] Alfredito Cameron MD [address] [place] [address] 12/31/2024 1:26 PM EST - 12/31/2024 3:06 PM EST Surgery OR [facility], Operating Room, [facility] Floor [address] [place] [address] Alfredito Cameron MD [address] [place] [address] MASTECTOMY PARTIAL 01/13/2025 10:15 AM EDT Office Visit General Surgery Anjana Wolff [address] [place] [address] [place] [address] Alfredito Cameron MD [address] [place] [address] 03/24/2025 3:00 PM EDT Telemedicine Cardiothoracic Surg [facility] [place] [address] [place] [address] Ramsey Díaz MD [address] [place] [address] Scheduled Procedures Name Priority Associated Diagnoses Date/Ti [...] this encounter Medical Devices Implanted Type Area Security Operations Center Operator Device Identifier Shelf Expiration Date Model / Serial / Lot Graft Aortic Root 32mm - [id number] Implanted:Qty : 1 on 08/07/2022 by Ramsey Díaz MD at OR [facility] [place] N/A: Aorta GETINGE : MAQUET [id number] 04/25/2027 IV77 .0095 8 / [id number] 22G14 Suture Steel 6 B&S19 M654g - [id number] Implanted:Qty : 8 on 08/07/2022 by Ramsey Díaz MD at OR [facility] [place] N/A: Sternum JNJ : [employer] 05/26/2027 M654G / / [id number] Cath Perivac Kit Str 8.3f - [id number] Implanted:Qty : 1 on 11/21/2022 by Yuki Rao MD at CARDIAC LABS [facility] [place] [employer] [id number] 12/24/2024 [id number] AC1S0 / / [id number] documented as of this encounter Visit Diagnoses [...] Advance Directives occurred with: Patient Care Teams Metal Fabricator Welder Relationship Specialty Start Date End Date Raghu Sandhu MD [address] [facility] [place] [address] PCP - General Family Medicine 11/02/24 documented as of this encounter
--- OUTSIDE RECORDS SUMMARY | 2025-01-22 11:15 | External Medical Summary | Summary of Care ---
Author Name Unknown Organization [facility] Address [address] [place] [address] Phone [phone] Care Team Providers Care Information Services Vice President Name Role Phone Raghu Sandhu MD Primary Care Provider Reason for Visit * Reason Comments Outpatient Testing Encounter Details Date Type Department Care Team (Late st Contact Info) Description 12/10/2024 11:50 AM EST Laboratory Outpatient Laboratory, [place] [address] [place] [address] [facility], Lab B1a [address] [place] [address] Tick bite of right upper arm, initial encounter Allergies No known active allergiesdocumented as of this encounter (statuses as of 12/10/2024) Medications Aspirin 81 MG Oral Tablet Chewable [...] as of this encounter (statuses as of 12/10/2024) Active Problems Problem Noted Date Diagnosed Date SVT (supraventricular tachycardia) 06/02/2024 H/O aortic root repair 10/08/2023 History of pericarditis 02/13/2023 Gastroesophageal reflux disease without esophagi tis 12/02/2022 Overweight (BMI 25.0-29.9) 07/11/2022 documented as of this encounter (statuses as of 12/10/2024) Resolved Problems Problem Noted Date Diagnosed Date [...] as of this encounter (statuses as of 12/10/2024) Immunizations Name Administration Dates Next Due HepA [...] [address] [place] [address] Alfredito Cameron MD [address] [place] [address] 03/24/2025 3:00 PM EDT Telemedicine Cardiothoracic Surg [facility] [address] [place] [address] Ramsey Díaz MD [address] [place] [address] 06/08/2025 9:00 AM EDT Office Visit Cardiology, [facility] [address] [place] [address] Ana Freedman PA-C [address] [place] [address] Pending Results Name Type Priority Associated Diagnoses Date /Time LYME DISEASE ANTIBODY SCREEN WITH REFLEX TO CONFIRMATION Lab Routine Tick bite of right upper arm, initial encounter 12/10/2024 10:42 AM EST LYME DISEASE ANTIBODY SCREEN Lab Routine Tick bite of right upper arm, initial encounter 12/10/2024 10:42 AM EST Health Maintenance Due Date Last Done [...] this encounter Medical Devices Implanted Type Area Folding Machine Operator Device Identifier Shelf Expiration Date Model / Serial / Lot Graft Aortic Root 32mm - [id number] Implanted:Qty : 1 on 08/07/2022 by Ramsey Díaz MD at OR [facility] [place] N/A: Aorta GETINGE : MAQUET [id number] 04/25/2027 IV77 .0095 8 / [id number] / 22G14 Suture Steel 6 B&S19 M654g - [id number] Implanted:Qty : 8 on 08/07/2022 by Ramsey Díaz MD at OR [facility] [place] N/A: Sternum JNJ : [employer] 05/26/2027 M654G / / [id number] Cath Perivac Kit Str 8.3f - [id number] Implanted:Qty : 1 on 11/21/2022 by Yuki Rao MD at CARDIAC LABS [facility] [facility] [employer] [id number] 12/24/2024 [id number] AC1S0 / / [id number] documented as of this encounter Visit Diagnoses Diagnosis Tick bite of right upper arm, initial encounter documented in this encounter Advance Directives * [...] Advance Directives occurred with: Patient Care Teams Information Services Vice President Relationship Specialty Start Date End Date Raghu Sandhu MD [address] [place] [address] PCP - General Family Medicine 11/02/24 documented as of this encounter
--- OUTSIDE RECORDS SUMMARY | 2025-01-22 11:15 | External Medical Summary | Summary of Care ---
Author Name Unknown Organization [facility] Address [address] [place] [place] [place] [address] Phone [phone] Care Team Providers Care Belt Press Operator Name Role Phone Raghu Sandhu MD Primary Care Provider Reason for Visit * Reason Onset Date Comments Appointment 12/06/2024 Encounter Details Date Type Department Care Team (Late st Contact Info) Description 12/06/2024 Telephone General Surgery Anjana Wolff [address] [facility] [address] [place] [address] Alfredito Cameron MD [address] [place] [address] Appointment Allergies No known active allergiesdocumented as of this encounter (statuses as of 12/08/2024) Medications Aspirin 81 MG Oral Tablet Chewable [...] to 75mg at bedtime 90 Tablet 3 5 Active predniSONE 20 MG Oral Tablet (Deltasone) Take 60mg in AM x 3 days followed by 40mg in AM x 2 days followed by 20mg in AM x 2 days then stop. 15 Tablet 5 Active documented as of this encounter (statuses as of 12/08/2024) Active Problems Problem Noted Date Diagnosed Date SVT (supraventricular tachycardia) 06/02/2024 H/O aortic root repair 10/08/2023 History of pericarditis 02/13/2023 Gastroesophageal reflux disease without esophagi tis 12/02/2022 Overweight (BMI 25.0-29.9) 07/11/2022 documented as of this encounter (statuses as of 12/08/2024) Resolved Problems Problem Noted Date Diagnosed Date [...] as of this encounter (statuses as of 12/08/2024) Immunizations Name Administration Dates Next Due HepA [...] Telephone Encounter - Alfredito Cameron MD - 12/08/2024 9:30 AM EST I have not established with this patient yet, so I do not know why he is coming in nor why I would want new images. * Telephone Encounter - Lindy Blanco CMA - 12/07/2024 10:42 AM EST Do you want new images prior to appointment? Currently scheduled for 12/09/24 * Telephone Encounter - Ana Colon OSA - 12/06/2024 2:23 PM EST Pt. Has an apt. With Dr. Cameron on 12/09. I wanted to make sure pt. Can be seen without new imagines? If new imagines are needed please call pt. To let him know. Thank You MARINA Flaherty 12/06/2024 2:26 PM documented in this encounter Plan of Treatment Upcoming Encounters Date Type Department Care Team (Late st Contact Info) Description 12/09/2024 9:30 AM EST Office Visit General Surgery Anjana Wolff [address] [place] [address] Alfredito Cameron MD [address] [place] [address] 12/13/2024 8:30 AM EST Cardiac Studies Cardiac Studies, [facility] 132 [facility] [place] [address] 12/13/2024 9:15 AM EST Cardiac Studies Cardiac Studies, [facility] 132 [facility] [place] [address] 03/24/2025 3:00 PM EDT Telemedicine Cardiothoracic Surg [facility] [address] [place] [address] Ramsey Díaz MD [address] [place] [address] 06/08/2025 9:00 AM EDT Office Visit Cardiology, [facility] 132 [facility] [place] [address] Ana Freedman, RUBY 132 [facility] [place] [address] Health Maintenance Due Date Last Done Comments [...] complete this topic Hepatitis C Screening Discontinued Pneumococcal Vaccine: Pediatrics (0 to 5 Years) and At-Risk Patients (6 to 18 Years and 19+ Years) Aged Out No longer eligible based on patient's age to complete this topic documented as of this encounter Medical Devices Implanted Type Area Fruit Or Nut Farmworker Device Identifier Shelf Expiration Date Model / Serial / Lot Graft Aortic Root 32mm - [id number] Implanted:Qty : 1 on 08/07/2022 by Ramsey Díaz MD at OR [facility] [place] N/A: Aorta GETINGE : MAQUET [id number] 04/25/2027 IV77 .0095 8 / [id number] Suture Steel 6 B&S19 M654g - [id number] Implanted:Qty : 8 on 08/07/2022 by Ramsey Díaz MD at OR [facility] [place] [facility] N/A: Sternum JNJ : [employer] 05/26/2027 M654G / / [id number] Cath Perivac Kit Str 8.3f - [id number] Implanted:Qty : 1 on 11/21/2022 by Yuki Rao MD at CARDIAC LABS [facility] [place] [employer] [id number] 12/24/2024 [id number] AC1S0 / / [id number] documented as of this encounter Advance Directives [...] Advance Directives occurred with: Patient Care Teams Belt Press Operator Relationship Specialty Start Date End Date Raghu Sandhu MD 132 [facility] [place] [address] PCP - General Family Medicine 11/02/24 documented as of this encounter
--- OUTSIDE RECORDS SUMMARY | 2025-01-22 11:15 | External Medical Summary | Summary of Care ---
Author Name Unknown Organization [facility] Address [address] [place] [facility] [place] [facility] [place] [address] Phone [phone] Care Team Providers Care Ferry Pilot Name Role Phone Raghu Sandhu MD Primary Care Provider Reason for Referral * Evaluate & Treat - Unlimited Visits (Within 10 days (routine)) - Authorized Specialty Diagnoses / Procedures Referred By Contact Referred To Contact Cardiovascular Medicine / Cardiology Diagnoses Gynecomastia Subareolar lump of right breast Alfredito Cameron MD [address] [place] [address] Phone: tel: fax: Referral ID Status Reason Start Date Expiration Date Visits Requested Visits Authorized [id number] Authorized Specialty Services Required 12/22/2024 999 999 [...] [id number] Alfredito Cameron MD [address] [place] [id number] Surgery Allergies No known active allergiesdocumented as [...] 12/31/2024 1:26 PM EST Hospital Encounter OR [facility], Operating Room, [facility] - 4th Floor [facility] [place] [address] Alfredito Cameron MD [address] [place] [address] 12/31/2024 1:26 PM EST - 12/31/2024 3:06 PM EST Surgery OR [facility], Operating Room, [facility] Floor [address] [place] [address] Alfredito Cameron MD [address] [place] [address] MASTECTOMY PARTIAL 01/13/2025 10:15 AM EDT Office Visit General Surgery Anjana Wolff [address] [place] [address] [place] [address] Alfredito Cameron MD [address] [place] [address] 03/24/2025 3:00 PM EDT Telemedicine Cardiothoracic Surg [facility] [place] [address] [place] [address] Ramsey Díaz MD [address] [place] [address] Scheduled Procedures Name Priority Associated Diagnoses Date/Ti [...] encounter Medical Devices Implanted Type Area Business Loan Processor Device Identifier Shelf Expiration Date Model / Serial / Lot Graft Aortic Root 32mm - [id number] Implanted:Qty : 1 on 08/07/2022 by Ramsey Díaz MD at OR [facility] N/A: Aorta GETINGE : MAQUET [id number] 04/25/2027 IV77 .0095 8 / [id number] 22G14 Suture Steel 6 B&S19 M654g - [id number] Implanted:Qty : 8 on 08/07/2022 by Ramsey Díaz MD at OR [facility] N/A: Sternum JNJ : [employer] 05/26/2027 M654G / / [id number] Cath Perivac Kit Str 8.3f - [id number] Implanted:Qty : 1 on 11/21/2022 by Yuki Rao MD at CARDIAC LABS [facility] [employer] [id number] 12/24/2024 [id number] AC1S0 / / [id number] documented as of this encounter Visit Diagnoses [...] Advance Directives occurred with: Patient Care Teams Ferry Pilot Relationship Specialty Start Date End Date Raghu Sandhu MD 132 [facility] [place] [address] PCP - General Family Medicine 11/02/24 documented as of this encounter
--- OUTSIDE RECORDS SUMMARY | 2025-01-22 11:15 | External Medical Summary | Summary of Care ---
Author Name Unknown Organization [facility] Address [address] [facility] [address] Phone [phone] Care Team Providers Care Freight Car Loader Name Role Phone Raghu Sandhu MD Primary Care Provider Encounter Details Date Type Department Care Team (Late st Contact Info) Description 12/07/2024 Orders Only Family [facility] [address] [place] [address] Raghu Sandhu MD [address] [place] [address] Allergies No known active allergiesdocumented as of this encounter (statuses as of 12/07/2024) Medications Aspirin 81 MG Oral Tablet Chewable [...] as of this encounter (statuses as of 12/07/2024) Active Problems Problem Noted Date Diagnosed Date SVT (supraventricular tachycardia) 06/02/2024 H/O aortic root repair 10/08/2023 History of pericarditis 02/13/2023 Gastroesophageal reflux disease without esophagi tis 12/02/2022 Overweight (BMI 25.0-29.9) 07/11/2022 documented as of this encounter (statuses as of 12/07/2024) Resolved Problems Problem Noted Date Diagnosed Date [...] as of this encounter (statuses as of 12/07/2024) Immunizations Name Administration Dates Next Due HepA [...] General Surgery Anjana Wolff [address] [place] [address] Alfredito Cameron MD [address] [place] [address] 12/13/2024 8:30 AM EST Cardiac Studies Card[facility] Studies, [facility] [place] [address] 12/13/2024 9:15 AM EST Cardiac Studies Cardiac Studies, [facility] [address] [facility] [place] [address] 03/24/2025 3:00 PM EDT Telemedicine Cardiothoracic Surg [facility] [place] [address] [place] [address] Ramsey Díaz MD [address] [place] [address] 06/08/2025 9:00 AM EDT Office Visit Cardiology, [facility] 132 [facility] [place] [address] Ana Freedman PA-C [address] [place] [address] Health Maintenance Due Date Last Done Comments [...] this encounter Medical Devices Implanted Type Area Electric Detector Operator Device Identifier Shelf Expiration Date Model / Serial / Lot Graft Aortic Root 32mm - [id number] Implanted:Qty : 1 on 08/07/2022 by Ramsey Díaz MD at OR [facility] [place] N/A: Aorta GETINGE : MAQUET [id number] 04/25/2027 IV77 .0095 8 / [id number] 22G14 Suture Steel 6 B&S19 M654g - [id number] Implanted:Qty : 8 on 08/07/2022 by Ramsey Díaz MD at OR [facility] [place] N/A: Sternum JNJ : [employer] 05/26/2027 M654G / / [id number] Cath Perivac Kit Str 8.3f - [id number] Implanted:Qty : 1 on 11/21/2022 by Yuki Rao MD at CARDIAC LABS [facility] [place] [employer] [id number] 12/24/2024 [id number] AC1S0 / / [id number] documented as of this encounter Procedures Procedure Name Priority Date/Time Associated Diagnosis Comments OUTSIDE LAB-CORONAVIRUS (COVID-19) Routine 12/05/2024 CHEMISTRY-OUTSIDE Routine 12/05/2024 documented in this encounter Results * OUTSIDE LAB-CORONAVIRUS (COVID-19) (12/05/2024) [id number] DE LAB NOT DETECTED NOT DETECTED OUTSIDE LAB (SEE SCANNED REPORT) 12/05/2024 us Vu Mtz MD LABORATORY Final Resul t OUTSIDE LAB (SEE SCANNED REPORT) * CHEMISTRY-OUTSIDE (12/05/2024) Pathologist [facility] Not all results display below - see scan for full detail OUTSIDE LAB (SEE SCANNED REPORT) Comment:PH YANELY ED-CBCD,FL U A/B RNA,CMP,GFR, TROP I HS CREATININE 0.92 0.70 - 1.30 MG/DL OUTSIDE LAB (SEE SCANNED REPORT) EGFR >90 >=60 ML/MIN OUTSIDE LAB (SEE SCANNED REPORT) POTASSIUM 3.5 3.5 - 5.1 MMOL OUTSIDE LAB (SEE SCANNED REPORT) GLUCOSE 96 70 - 110 MG/DL OUTSIDE LAB (SEE [...] LAB OUTSIDE LAB (SEE SCANNED REPORT) HEMOGLOBIN, [id number] LAB OUTSIDE LAB (SEE SCANNED REPORT) PHOSPHORUS-OUTSID E LAB OUTSIDE LAB (SEE SCANNED REPORT) PTH-OUTSIDE LAB OUTS JONATHAN LAB (SEE SCANNED REPORT) MICROALBUMIN RATIO-OUTSIDE LAB OUTSIDE LA B (SEE SCANNED REPORT) PROTEIN, UA-OUTSIDE LAB OUTSIDE LAB (SEE SCANNED REPORT) HGB 15.8 13.5 - 18 GM/DL OUTSIDE LAB (SEE SCANNED REPORT) 12/05/2024 us Vu Mtz MD LABORATORY Final Resul [...] Advance Directives occurred with: Patient Care Teams Freight Car Loader Relationship Specialty Start Date End Date Raghu Sandhu MD [address] [place] [address] PCP - General Family Medicine 11/02/24 documented as of this encounter
--- OUTSIDE RECORDS SUMMARY | 2025-01-22 11:15 | External Medical Summary | Summary of Care ---
Author Name Unknown Organization [facility] Address [address] [place] [address] Phone [phone] Care Team Providers Care Cell Operator Name Role Phone Raghu Sandhu MD Primary Care Provider Reason for Visit * Reason Comments Acute Encounter Details Date Type Department Care Team (Late st Contact Info) Description 12/10/2024 7:20 AM EST Telemedicine Family Medicine [address] [place] [address] [place], [place] [id number] Tick bite of right upper arm, initial encounter* Allergies No known active allergiesdocumented as of [...] x 2 days then stop. 15 Tablet Active documented as of this encounter (statuses [...] [address] [place] [address] Alfredito Cameron MD [address] [place] [address] 03/24/2025 3:00 PM EDT Telemedicine Cardiothoracic Surg [facility] [address] [place] [address] Ramsey Díaz MD [address] [place] [address] 06/08/2025 9:00 AM EDT Office Visit Cardiology, [facility] [address] [place] [address] [address] Ana Freedman PA-C [address] [address] Scheduled Orders Name Type Priority Associated Diagnoses Orde r Schedule LYME DISEASE ANTIBODY SCREEN WITH REFLEX TO CONFIRMATION Lab Routine Tick bite of right upper arm, initial encounter Expected: 12/10/2024 (Approximate), Expires: 12/10/2025 Health Maintenance Due Date Last Done Comments [...] this encounter Medical Devices Implanted Type Area Cyber Analyst Device Identifier Shelf Expiration Date Model / Serial / Lot Graft Aortic Root 32mm - [id number] Implanted:Qty : 1 on 08/07/2022 by Ramsey Díaz MD at OR [facility] N/A: Aorta GETINGE : MAQUET [id number] 04/25/2027 IV77 .0095 8 / [id number] Suture Steel 6 B&S19 M654g - [id number] Implanted:Qty : 8 on 08/07/2022 by Ramsey Díaz MD at OR [facility] N/A: Sternum JNJ : [employer] 05/26/2027 M654G / / [id number] Cath Perivac Kit Str 8.3f - [id number] Implanted:Qty : 1 on 11/21/2022 by Yuki Rao MD at [facility] [employer] [id number] 12/24/2024 [id number] AC1S0 / / [id number] documented as of this encounter Visit Diagnoses Diagnosis Tick bite of right upper arm, initial encounter- Primary documented in this encounter Advance Directives * [...] Advance Directives occurred with: Patient Care Teams Cell Operator Relationship Specialty Start Date End Date Raghu Sandhu MD [address] [place] [address] PCP - General Family Medicine 11/02/24 documented as of this encounter
--- OUTSIDE RECORDS SUMMARY | 2025-01-22 11:15 | External Medical Summary | Summary of Care ---
Author Name Unknown Organization [facility] Address [address] [place] [address] Phone [phone] Care Team Providers Care Esl Instructor Name Role Phone Raghu Holley MD Primary Care Provider Reason for Visit * Reason Comments NEW PATIENT * Evaluate & Treat - Unlimited Visits (Within 10 days (routine)) - Authorized Specialty Diagnoses / Procedures Referred By Bianca truong Referred To Contact Breast Clinic Multi Specialty / Surgical Oncology Diagnoses Subareolar mass of right breast Gynecomastia Raghu Holley MD [address] [place] [id number] Phone: tel: fax: Referral ID Status Reason Start Date Expiration Date Visits Requested Visits Authorized [id number] Authorized Specialty Services Required 10/29/2024 [id number] Encounter Details Date Type Department Care Team (Late st Contact Info) Description 12/21/2024 9:30 AM EST Office Visit General Surgery Anjana Wolff [address] [place] [address] Alfredito Cameron MD [address] [place] [address] Gynecomastia*; Subareolar lump of right breast Allergies No known active allergiesdocumented as of this encounter (statuses as of 12/21/2024) Medications Aspirin 81 MG Oral Tablet Chewable Take 1 Tablet by mouth in the morning. Do not start before December 10, 2022. 30 Tablet 2 12/10/19 23 Active Vitamin B-12 500 MCG Oral Tablet (vitamin B-12) Take 1 Tablet by mouth in the morning. Active Mens Multi Vitamin & Mineral Oral Tablet Take by mouth. Activ e SUMAtriptan Succinate 50 MG Oral Tablet (Imitrex) Take 1 tablet at onset of migraine and one tablet every 2 hours as needed, not more than 5 tablets in 24 hours 6 Tablet 5 10/29/19 Active Topiramate 25 MG Oral Tablet (Topamax) Take one 25mg tab at bedtime for one week, if tolerating increase to 50mg at bedtime for one week, then increase to 75mg at bedtime 90 Tablet 3 11/09/19 25 025 Discontinued predniSONE 20 MG Oral Tablet (Deltasone) Take 60mg in AM x 3 days followed by 40mg in AM x 2 days followed by 20mg in AM x 2 days then stop. 15 Tablet 11/09/19 25 025 Discontinued documented as of this encounter (statuses as of 12/21/2024) Active Problems Problem Noted Date Diagnosed Date Gynecomastia 12/21/2024 Subareolar lump of right breast 12/21/2024 SVT (supraventricular tachycardia) 06/02/2024 H/O aortic root repair 10/08/2023 History of pericarditis 02/13/2023 Gastroesophageal reflux disease without esophagi tis 12/02/2022 Overweight (BMI 25.0-29.9) 07/11/2022 documented as of this encounter (statuses as of 12/21/2024) Resolved Problems Problem Noted Date Diagnosed Date [...] as of this encounter (statuses as of 12/21/2024) Immunizations Name Administration Dates Next Due HepA [...] Sign Reading Time Taken Comments Blood Pressure 118/70 12/21/2024 9:09 AM EST Pulse 64 12/21/2024 9:09 AM EST Temperature 36.3 °C (97.4 °F) 12/21/2024 9:09 AM ES T Respiratory Rate - - Oxygen Saturation - - Inhaled Oxygen Concentration - - Weight 109.6 kg (241 lb 11.2 oz) 12/21/2024 9:09 AM EST Height - - Body Mass Index 30.05 10/29/2024 10:28 AM EST documented in this encounter Progress Notes * Alfredito Cameron MD - 12/21/2024 9:36 AM EST DOS: 12/21/2024 Ref: Patient is seen at the request of Raghu Holley MD. CC: Right gynecomastia, subareolar painful lump HPI: [...] no new rashes, no itching Past Medical History: Diagnosis Date Gastroesophageal reflux disease without esophagitis 12/02/2022 H/O aortic root repair 08/15/2022 Non-cardiac chest pain 07/11/2022 Intermittent when lifting weights Obesity, Class I, BMI 30.0-34.9 (see actual BMI) 11/28/2022 Overweight (BMI 25.0-29.9) 07/11/2022 Current Medications - Prior to This Encounter [...] not start before December 10, 2022. 12/20/2024 Review of patient's allergies indicates: No Known Allergies Past Surgical History: Procedure Laterality Date ASCENDING AORTA GRAFT W/BYPASS,ROOT REMODEL N/A 08/07/2022 ASCENDING AORTIC GRAFT WITH CARDIAC BYPASS SHELTON PROCEDURE performed by Ramsey Díaz MD at [facility] INFORMATION 08/07/2022 Rose ANUPAM #[id number] aorta graft PERICARDIOCENT INTL/HOSP ONLY Left 11/21/2022 PERICARDIOCENTESIS performed by Yuki Rao MD at [facility] [place] TONSILLECTOMY & ADENOIDECTOMY LESS THAN AGE 11 Bilateral Family History Problem Relation Name Age of Onset No Known Problems Mother No Known Problems Sister No Known Problems Brother No Known Problems Grandmother (Maternal) No Known Problems Daughter No Known Problems Daughter Social History Tobacco Use Smoking status: Never [...] so Drug use: No Objective EXAM: BP 118/70 | Pulse 64 | Temp 36.3 °C (97.4 °F) (Temporal Artery) | Wt 109.6 kg (241 lb 11.2 oz) | BMI 30.05 kg/m² | BSA 2.41 m² GENERAL: alert, healthy, and no distress HEAD: [...] PLAN: Right subareolar partial mastectomy for gynecomastia PAT I spent a total of 40-54 minutes (exact time 40 mins) on the date of service in preparation, delivery, and documentation of the care provided to Eric Marie excluding any time spent in the performance of separately billed services or time spent by another provider/QHP. Davi Cameron MD documented in this encounter Nursing Notes * Crys Nath LPN - 12/21/2024 9:10 AM EST Chief Complaint Patient presents with NEW PATIENT Pt referred by PCP for RIGHT breast mass. Per patient, lump under the RIGHT nipple x 2 years. Sensitive to touch at times and also gets red and inflamed. No drainage. Mammogram and RIGHT breast US completed 12/23/22 revealing: Mild right asymmetrical gynecomastia. documented in this encounter Miscellaneous Notes * Addendum Note - Chikis Blanco CMA - 12/21/2024 9:52 AM ESTAddended by: CHIKIS BLANCO on: 12/21/2024 09:52 AM Modules accepted: Orders documented in this encounter Plan of Treatment Upcoming Encounters Date Type Department Care Team (Latest Contact Info) Description 12/31/2024 1:26 PM EST Hospital Encounter OR [facility], Operating Room, [facility] - 4th Floor [address] [place] [phone] Alfredito Cameron MD [address] [place] [address] 12/31/2024 1:26 PM EST - 12/31/2024 3:06 PM EST Surgery OR [facility], Operating Room, [facility] - 4th Floor [address] [place] [address] Alfredito Cameron MD [address] [address] MASTECTOMY PARTIAL 01/13/2025 10:15 AM EDT Office Visit General Surgery Anjana Wolff [address] [place] [address] [address] Alfredito Cameron MD [address] [address] 03/24/2025 3:00 PM EDT Telemedicine Cardiothoracic Surg [facility] [address] [place], [place] [phone] Ramsey Díaz MD [address] [place], [place] [id number] Scheduled Procedures Name Priority Associated Diagnoses Date/Ti [...] this encounter Medical Devices Implanted Type Area Half Sole Fitter Device Identifier Shelf Expiration Date Model / Serial / Lot Graft Aortic Root 32mm - [id number] Implanted:Qty : 1 on 08/07/2022 by Ramsey Díaz MD at [place] [facility] N/A: Aorta GETINGE : MAQUET [id number] 04/25/2027 IV77 .0095 8 / [id number] 22G14 Suture Steel 6 B&S19 M654g - [id number] Implanted:Qty : 8 on 08/07/2022 by Ramsey Díaz MD at [place] [facility] N/A: Sternum JNJ : [employer] 05/26/2027 M654G / / [id number] Cath Perivac Kit Str 8.3f - [id number] Implanted:Qty : 1 on 11/21/2022 by Yuki Rao MD at [facility] [employer] [id number] 12/24/2024 [id number] AC1S0 / / [id number] documented as of this encounter Visit Diagnoses Diagnosis Gynecomastia- Primary [...] Advance Directives occurred with: Patient Care Teams Esl Instructor Relationship Specialty Start Date End Date Raghu Holley MD [address] [facility] [place] [address] PCP - General Family Medicine 11/02/24 documented as of this encounter"
--- OUTSIDE RECORDS SUMMARY | 2025-01-22 11:15 | External Medical Summary | Summary of Care ---
Author Name Unknown Organization [facility] Address [address] [place] [address] Phone [phone] Care Team Providers Care Professor Criminal Justice Name Role Phone Raghu Sandhu MD Primary Care Provider Reason for Visit * Reason Onset Date Comments Encounter Created in Error 11/30/2024 Encounter Details Date Type Department Care Team (Late st Contact Info) Description 11/30/2024 Telephone Cardiology, [facility] [address] [facility] [place] [address] Ana Freedman PA-C [address] [place] [address] Encounter Created in Error Allergies No known active allergiesdocumented as of this encounter (statuses as of 12/09/2024) Medications Aspirin 81 MG Oral Tablet Chewable [...] as of this encounter (statuses as of 12/09/2024) Active Problems Problem Noted Date Diagnosed Date SVT (supraventricular tachycardia) 06/02/2024 H/O aortic root repair 10/08/2023 History of pericarditis 02/13/2023 Gastroesophageal reflux disease without esophagi tis 12/02/2022 Overweight (BMI 25.0-29.9) 07/11/2022 documented as of this encounter (statuses as of 12/09/2024) Resolved Problems Problem Noted Date Diagnosed Date [...] as of this encounter (statuses as of 12/09/2024) Immunizations Name Administration Dates Next Due HepA [...] 12/10/2024 7:20 AM EST Telemedicine Family Medicine [address] [phone] [address] [place] [address] 12/21/2024 9:30 AM EST Office Visit General Surgery Anjana Wolff [address] [facility] [address] [place] [address] [address] Alfredito Cameron MD [address] [place] [address] 03/24/2025 3:00 PM EDT Telemedicine Cardiothoracic Surg [facility] [address] [place] [address] Ramsey Díaz MD [address] [place] [address] 06/08/2025 9:00 AM EDT Office Visit Cardiology, [facility] [address] [place] [address] Ana Freedman PA-C [address] [place] [address] Health Maintenance Due Date Last Done Comments [...] this encounter Medical Devices Implanted Type Area Heat Treat Furnace Operator Device Identifier Shelf Expiration Date Model / Serial / Lot Graft Aortic Root 32mm - [id number] Implanted:Qty : 1 on 08/07/2022 [place] Ramsey Díaz [place] [facility] [place]: Aorta GETINGE : MAQUET [id number] 04/25/2027 IV77 .0095 8 / [id number] 22G14 Suture Steel 6 B&S19 M654g - [id number] Implanted:Qty : 8 on 08/07/2022 by Ramsey Díaz [place] [facility] [place]A: Sternum JNJ : [employer] 05/26/2027 M654G / / [id number] Cath Perivac Kit Str 8.3f - [id number] Implanted:Qty : 1 on 11/21/2022 by Yuki Rao MD [place] [facility] [employer] [id number] 12/24/2024 [id number] AC1S0 / / [id number] documented as of this encounter Advance Directives [...] Advance Directives occurred with: Patient Care Teams Professor Criminal Justice Relationship Specialty Start Date End Date Raghu Sandhu MD [address] [place] [address] PCP - General Family Medicine 11/02/24 documented as of this encounter
--- OUTSIDE RECORDS SUMMARY | 2025-01-22 11:15 | External Medical Summary | Summary of Care ---
Author Name Unknown Organization [facility] Address [address] [place] [address] Phone [phone] Care Team Providers Care Auto Electrical Technician Name Role Phone Raghu Holley MD Primary Care Provider Reason for Visit * Reason Comments NEW PATIENT * Evaluate & Treat - Unlimited Visits (Within 10 days (routine)) - Authorized Specialty Diagnoses / Procedures Referred By Bianca truong Referred To Contact Breast Clinic Multi Specialty / Surgical Oncology Diagnoses Subareolar mass of right breast Gynecomastia Raghu Holley MD [address] [place] [address] Phone: tel: fax: Referral ID Status Reason Start Date Expiration Date Visits Requested Visits Authorized [id number] Authorized Specialty Services Required 10/29/[phone] Encounter Details Date Type Department Care Team (Late st Contact Info) Description 12/21/2024 9:30 AM EST Office Visit General Surgery Anjana Wolff [address] [place] [address] Alfredito Cameron MD [address] [address] Gynecomastia*; Subareolar lump of right breast Allergies [...] PROCEDURE performed by Ramsey Díaz MD at [facility] INFORMATION 08/07/2022 Rose ANUPAM #[id number] aorta graft PERICARDIOCENT INTL/HOSP ONLY Left 11/21/2022 PERICARDIOCENTESIS performed by Yuki Rao MD at [facility] [place] TONSILLECTOMY & ADENOIDECTOMY LESS THAN AGE 11 [...] 1:26 PM EST Hospital Encounter OR [facility], Operating Room, [facility] - 4th Floor [address] [place] [phone] Alfredito Cameron MD [address] [place] [address] 12/31/2024 1:26 PM EST - 12/31/2024 3:06 PM EST Surgery OR [facility], Operating Room, [facility] - 4th Floor [address] [place] [address] Alfredito Cameron MD [address] [place] [address] [address] MASTECTOMY PARTIAL 01/13/2025 10:15 AM EDT Office Visit General Surgery Anjana Wolff [address] [place] [address] Alfredito Cameron MD [address] [place] [address] 03/24/2025 3:00 PM EDT Telemedicine Cardiothoracic Surg [facility] [address] [place], [place] [phone] Ramsey Díaz MD [address] [place], [place] [phone] Scheduled Procedures Name Priority Associated Diagnoses Date/Ti [...] this encounter Medical Devices Implanted Type Area Laser Beam Color Scanner Operator Device Identifier Shelf Expiration Date Model / Serial / Lot Graft Aortic Root 32mm - [id number] Implanted:Qty : 1 on 08/07/2022 by Ramsey Díaz MD at OR [facility] N/A: Aorta GETINGE : MAQUET [id number] 04/25/2027 IV77 .0095 8 / [id number] 22G14 Suture Steel 6 B&S19 M654g - [id number] Implanted:Qty : 8 on 08/07/2022 by Ramsey Díaz MD at OR [facility] N/A: Sternum JNJ : [employer] 05/26/2027 M654G / / [id number] Cath Perivac Kit Str 8.3f - [id number] Implanted:Qty : 1 on 11/21/2022 by Yuki Rao MD at [facility] [employer] [id number] 12/24/2024 [id number] AC1S0 / / [id number] documented as of this encounter Visit Diagnoses [...] Advance Directives occurred with: Patient Care Teams Auto Electrical Technician Relationship Specialty Start Date End Date Raghu Holley MD [address] [facility] [place] [address] PCP - General Family Medicine 11/02/24 documented as of this encounter"
--- OUTSIDE RECORDS SUMMARY | 2025-01-22 11:15 | External Medical Summary | Summary of Care ---
Author Name Unknown Organization [facility] Address [address] [facility] [place] [address] Phone [phone] Care Team Providers Care Skiver Box Toe Name Role Phone Raghu Sandhu MD Primary Care Provider Reason for Visit * Reason Onset Date Comments Surgery 12/21/2024 Pre-Surgical Ins tructions Encounter Details Date Type Department Care Team (Late st Contact Info) Description 12/21/2024 Telephone General Surgery Anjana Wolff [address] [place] [address] Alfredito Cameron MD [address] [place] [address] Surgery (Pre-Surgical Instructions) Allergies No known active allergiesdocumented as of [...] Telephone Encounter - Jo Mclain OSA - 12/21/2024 10:03 AM EST The patient has been scheduled for outpatient surgery at [facility] on 12/31/2024with Dr. Cameron. The following pre surgical instructions have been reviewed verbally with the patient and written instructions provided. -The following preadmission testing has been ordered: none, all were completed. -The patient has been instructed to hold any Aspirin, Ibuprofen or NSAIDS 7 days prior to surgery: yes -The patient has been instructed to stop taking Fish oil and Vitamin E: yes -If the patient is currently taking Coumadin, Warfarin, Plavix, Eliquis or any other blood thinners, the following instructions have been given: NA -The patient has been instructed to shower with half of the provided chlorhexidine soap the night before surgery and the remaining soap the morning of surgery: yes -The patient has been instructed that they may have clear liquids from midnight the night before surgery up until 2 hours before surgery: yes -The patient has been instructed that they will need a otr flatbed driver to bring you home after surgery: yes -The following post op appts have been scheduled: post op 01/13/25 at 10:15AM with -The patient was provided with two Boost Breeze. First shake is to be consumed at 10 pm the night before surgery and the second to be consumed two hours before their arrival time: NA -Is the patient curently prescribed GLP- 1 medications? If so, they have been given the following instructions. NA documented in this encounter Plan of Treatment Upcoming Encounters Date Type Department Care Team (Latest Contact Info) Description 12/31/2024 1:26 PM EST Hospital Encounter OR [facility], Operating Room, [facility] - 4th Floor [address] [place] [address] Alfredito Cameron MD [address] [place] [address] 12/31/2024 1:26 PM EST - 12/31/2024 3:06 PM EST Surgery OR [facility], Operating Room, [facility] - 4th Floor [address] [place] [phone] Alfredito Cameron MD [address] [place] [address] MASTECTOMY PARTIAL 01/13/2025 10:15 AM EDT Office Visit General Surgery Anjana Wolff [address] [facility] [address] [place] [address] Alfredito Cameron MD [address] [place] [address] 03/24/2025 3:00 PM EDT Telemedicine Cardiothoracic Surg [facility] [address] [place] [address] Ramsey Díaz MD [address] [place] [address] Scheduled Procedures Name Priority Associated Diagnoses Date/Ti [...] this encounter Medical Devices Implanted Type Area Leather Shaver Device Identifier Shelf Expiration Date Model / Serial / Lot Graft Aortic Root 32mm - [id number] Implanted:Qty : 1 on 08/07/2022 by Ramsey Díaz MD [place] [facility]/A: Aorta GETINGE : MAQUET [id number] 04/25/2027 IV77 .0095 8 / [id number] G14 Suture Steel 6 B&S19 M654g - [id number] Implanted:Qty : 8 on 08/07/2022 by Ramsey Díaz MD at [place] [facility] N/A: Sternum JNJ : [employer] 05/26/2027 M654G / / [id number] Cath Perivac Kit Str 8.3f - [id number] Implanted:Qty : 1 on 11/21/2022 by Yuik Rao MD at [facility] [employer] [id number] 12/24/2024 [id number] AC1S0 / / [id number] documented as of this encounter Advance Directives [...] Advance Directives occurred with: Patient Care Teams Skiver Box Toe Relationship Specialty Start Date End Date Raghu Sandhu MD [address] [place] [address] PCP - General Family Medicine 11/02/24 documented as of this encounter
--- OUTSIDE RECORDS SUMMARY | 2025-01-22 11:15 | External Medical Summary | Summary of Care ---
Author Name Unknown Organization [facility] Address [address] [place] [place] [address] Phone [phone] Care Team Providers Care Computer Operations Manager Name Role Phone Raghu Sandhu MD Primary Care Provider Reason for Visit * Reason Onset Date Comments Encounter Created in Error 11/30/2024 Encounter Details Date Type Department Care Team (Late st Contact Info) Description 11/30/2024 Telephone Cardiology, [facility] [address] [facility] [place] [address] Ana Freedman PA-C [address] [facility] [place] [address] Encounter Created in Error Allergies No known active allergiesdocumented as of this encounter (statuses as of 11/30/2024) Medications Aspirin 81 MG Oral Tablet Chewable [...] as of this encounter (statuses as of 11/30/2024) Active Problems Problem Noted Date Diagnosed Date SVT (supraventricular tachycardia) 06/02/2024 H/O aortic root repair 10/08/2023 History of pericarditis 02/13/2023 Gastroesophageal reflux disease without esophagi tis 12/02/2022 Overweight (BMI 25.0-29.9) 07/11/2022 documented as of this encounter (statuses as of 11/30/2024) Resolved Problems Problem Noted Date Diagnosed Date [...] as of this encounter (statuses as of 11/30/2024) Immunizations Name Administration Dates Next Due HepA [...] ages 0-17 years) Not on file 10/29/2024 Sex and Gender Information Value Date Recorded Sex Assigned at Not on file Legal Sex Male 6:05 AM EST Gender Identity Male 10/29/2024 10:28 AM EST Sexual Orientation Straight 10/29/2024 10 :28 AM EST documented as of this encounter Plan of Treatment Upcoming Encounters Date Type Department Care Team (Late st Contact Info) Description 12/06/2024 8:30 AM EST Office Visit Cardiology, [facility] [address] [place] [address] Ana Freedman, RUBY [address] [place] [address] 03/24/2025 3:00 PM EDT Telemedicine Cardiothoracic Surg [facility] [address] [place] [address] Ramsey Díaz MD [address], [place] [phone] Health Maintenance Due Date Last Done Comments [...] this encounter Medical Devices Implanted Type Area Caddy/Caddie Supervisor Device Identifier Shelf Expiration Date Model / Serial / Lot Graft Aortic Root 32mm - [id number] Implanted:Qty : 1 on 08/07/2022 by Ramsey Díaz [place] [facility] [place]: Aorta GETINGE : KYLET [id number] 04/25/2027 IV77 .0095 8 / [id number] / [id number] Suture Steel 6 B&S19 M654g - [id number] Implanted:Qty : 8 on 08/07/2022 by Ramsey Díaz MD [place] [facility] [place]/A: Sternum JNJ : [employer] 05/26/2027 M654G / / [id number] Cath Perivac Kit Str 8.3f - [id number] Implanted:Qty : 1 on 11/21/2022 by Yuki Rao MD at [facility] [place] [employer] [id number] 12/24/2024 [id number] AC1S0 / / [id number] documented as of this encounter Advance Directives [...] Advance Directives occurred with: Patient Care Teams Computer Operations Manager Relationship Specialty Start Date End Date Raghu Sandhu MD [address] [place] [address] PCP - General Family Medicine 11/02/24 documented as of this encounter
--- OUTSIDE RECORDS SUMMARY | 2025-01-22 11:15 | External Medical Summary | Summary of Care ---
Author Name Unknown Organization [facility] Address [address] [facility] [address] Phone [phone] Care Team Providers Care Bacteriologist Industrial Name Role Phone Raghu Sandhu MD Primary Care Provider Encounter Details Date Type Department Care Team (Late st Contact Info) Description 12/06/2024 Orders Only Family [facility] [address] [place] [address] Raghu Sandhu MD [address] [place] [address] Allergies No known active allergiesdocumented as of this encounter (statuses as of 12/06/2024) Medications Aspirin 81 MG Oral Tablet Chewable [...] as of this encounter (statuses as of 12/06/2024) Active Problems Problem Noted Date Diagnosed Date SVT (supraventricular tachycardia) 06/02/2024 H/O aortic root repair 10/08/2023 History of pericarditis 02/13/2023 Gastroesophageal reflux disease without esophagi tis 12/02/2022 Overweight (BMI 25.0-29.9) 07/11/2022 documented as of this encounter (statuses as of 12/06/2024) Resolved Problems Problem Noted Date Diagnosed Date [...] as of this encounter (statuses as of 12/06/2024) Immunizations Name Administration Dates Next Due HepA [...] Team (Late st Contact Info) Description 12/07/2024 9:00 AM EST Cardiac Studies Cardiac Studies, [facility] [address] [place] [address] 12/09/2024 9:30 AM EST Office Visit General Surgery Anjana Wolff [address] [place] [address] Alfredito Cameron MD [address] [place] [address] 03/24/2025 3:00 PM EDT Telemedicine Cardiothoracic Surg [facility] [address] [place] [address] Ramsey Díaz MD [address] [place] [address] 06/08/2025 9:00 AM EDT Office Visit Cardiology, [facility] [address] [place] [address] Ana Freedman PA-C [address] [place] [address] Health Maintenance Due Date Last Done Comments [...] this encounter Medical Devices Implanted Type Area Agitator Operator Device Identifier Shelf Expiration Date Model / Serial / Lot Graft Aortic Root 32mm - [id number] Implanted:Qty : 1 on 08/07/2022 [place] Ramsey [place] [facility] [place] Aorta GETINGE : MAQUET [id number] 04/25/2027 IV77 .0095 8 / [id number] Suture Steel 6 B&S19 M654g - [id number] Implanted:Qty : 8 on 08/07/2022 [place] Ramsey Dí[place] [facility] [place] Sternum JNJ : [employer] 05/26/2027 M654G / / [id number] Cath Perivac Kit Str 8.3f - [id number] Implanted:Qty : 1 on 11/21/2022 by Yuki Rao [place] [facility] [place] [employer] [id number] 12/24/2024 [id number] AC1S0 / / [id number] documented as of this encounter Procedures Procedure Name Priority Date/Time Associated Diagnosis Comments CT PULMONARY EMBOLUS W CONTRAST Routine 12/05/2024 CT ABD/PELVIS W IV AND W ORAL CONTRAST Routine 12/05/2024 documented in this encounter Results * CT PULMONARY EMBOLUS W CONTRAST (12/05/2024) Anatomical Region Laterality Modality Chest, Cardio, Body Other 12/05/2024 us Vu Mtz MD RAD CT Final Resul t * CT ABD/PELVIS W IV AND W ORAL CONTRAST (12/05/2024) Anatomical Region Laterality Modality Body, Abdomen, Pelvis Other 12/05/2024 us Vu Mtz MD RAD CT Final Resul t documented in this encounter Advance Directives * [...] Advance Directives occurred with: Patient Care Teams Bacteriologist Industrial Relationship Specialty Start Date End Date Raghu Sandhu MD [address] [facility] [place] [address] PCP - General Family Medicine 11/02/24 documented as of this encounter
--- OUTSIDE RECORDS SUMMARY | 2025-01-22 11:15 | External Medical Summary | Summary of Care ---
Author Name Unknown Organization [facility] Address [address] [place] [address] Phone [phone] Care Team Providers Care Assistant Director Name Role Phone Raghu Sandhu MD Primary Care Provider Reason for Visit * Reason Onset Date Comments Appointment 11/02/2024 Encounter Details Date Type Department Care Team (Late st Contact Info) Description 11/02/2024 Telephone Plastic Surgery, [place] [address] [place], [place] [phone] Chadd Lester MD [address] [place], [place] [phone] Appointment Allergies No known active allergiesdocumented as of this encounter (statuses as of 12/03/2024) Medications Aspirin 81 MG Oral Tablet Chewable [...] in 24 hours 6 Tablet 5 10/29/19 25 Active Additional Information Patient not taking.Reported on 11/09/2024 Amoxicillin 500 MG Oral Capsule (Amoxil)Indic ations:S/P ascending aortic aneurysm repair Take 4 capsules by mouth 30-60 mins prior to dental work. 4 Capsule 5 02/19/20 24 025 Discontinued(Nh dication List Clean Up) Topiramate 50 MG Oral Tablet (Topamax) 1 tablet daily in evening for 10 days then 1 tablet twice daily morning and evening 60 Tablet 2 10/29/19 025 Discontinued documented as of this encounter (statuses as of 12/03/2024) Active Problems Problem Noted Date Diagnosed Date SVT (supraventricular tachycardia) 06/02/2024 H/O aortic root repair 10/08/2023 History of pericarditis 02/13/2023 Gastroesophageal reflux disease without esophagi tis 12/02/2022 Overweight (BMI 25.0-29.9) 07/11/2022 documented as of this encounter (statuses as of 12/03/2024) Resolved Problems Problem Noted Date Diagnosed Date [...] as of this encounter (statuses as of 12/03/2024) Immunizations Name Administration Dates Next Due HepA [...] encounter Miscellaneous Notes * Telephone Encounter - Selam Vincent OSA - 11/02/2024 10:17 AM EST Left pt a message to get him scheduled as a New Plastic for gynecomastia with Dr Lester on 11/23. Left number to call back and get scheduled. documented in this encounter Plan of Treatment Upcoming Encounters Date Type Department Care Team (Late st Contact Info) Description 12/07/2024 9:00 AM EST Cardiac Studies Cardiac Studies, [facility] [address] [facility] [place] [address] 03/24/2025 3:00 PM EDT Telemedicine Cardiothoracic Surg [facility] [address] [place] [address] Ramsey Díaz MD [address] [place] [address] 06/08/2025 9:00 AM EDT Office Visit Cardiology, [facility] [address] [facility] [place] [address] Ana Freedman PA-C [address] [place] [address] Health Maintenance Due Date Last Done Comments [...] this encounter Medical Devices Implanted Type Area Net Lead Architect Device Identifier Shelf Expiration Date Model / Serial / Lot Graft Aortic Root 32mm - [id number] Implanted:Qty : 1 on 08/07/2022 by Ramsey Díaz MD at [place] [facility] [place] N/A: Aorta GETINGE : MAQUET [id number] 04/25/2027 IV77 .0095 8 / [id number] 22G14 Suture Steel 6 B&S19 M654g - [id number] Implanted:Qty : 8 on 08/07/2022 by Ramsey Díaz MD at OR [facility] [place] N/A: Sternum JNJ : [employer] 05/26/2027 M654G / / [id number] Cath Perivac Kit Str 8.3f - [id number] Implanted:Qty : 1 on 11/21/2022 by Yuki Rao MD at [facility]ARDI[facility] LABS [facility] [place] [employer] [id number] 12/24/2024 [id number] AC1S0 / / [id number] documented as of this encounter Advance Directives [...] Directives occurred with: Patient Care Teams Assistant Director Relationship Specialty Start Date End Date Raghu Sandhu MD [address] [facility] [place] [address] PCP - General Family Medicine 11/02/24 documented as of this encounter
--- OUTSIDE RECORDS SUMMARY | 2025-01-22 11:15 | External Medical Summary ---
Author Name Unknown Address Unknown Organization K01:[facility] [place] - [facility] [address] [place] [address] Laboratory Report Ordering Provider Test Date Status [place] 12/10/2024 10:42:28 Final Observation Date Value Abnormality Reference (Units ) Status Borrelia burgdorferi IgG and IgM [Interpretation] in Serum by Immunoassay 12/10/2024 10:42:28 Negative Negative Final Performing Location [facility] - [address] [place] [address]
[2025-01-22 11:30] VITALS: RESP 16
--- NOTE | 2025-01-22 11:46 | Electrocardiogram Report ---
Test Reason : Blood Pressure : */* mmHG Vent. Rate : 65 BPM Atrial Rate : 65 BPM P-R Int : 182 ms QRS Dur : 114 ms QT Int : 390 ms P-R-T Axes : 33 2 23 degrees QTcB Int : 405 ms Normal sinus rhythm Incomplete right bundle branch block Poor R-wave progression vs lead placement Abnormal ECG When compared with ECG of 16-Nov-2024 12:38, No significant change was found Confirmed by Eloise Griffiths ([id number]) on 01/22/2025 11:46:02 AM Referred By: REFERRED SELF Confirmed By: Eloise Griffiths
--- NOTE | 2025-01-22 15:32 | Communication Note ---
Date of Service: January 22, 2025 The patient was seen and examined in medical telemetry unit in presence of the family members. He was admitted with left upper chest wall pain/tightness with radiation to the left upper extremity and also to the neck which has been going on for the last 2 months. He also complains to have some numbness and tingling involving the left upper extremity but does not have any weakness involving the left upper extremity. He will also have some pain and tenderness anterior shoulder but shoulder movement is not restricted and is not painful. No sensory impairment to the left upper extremity in the neck movement is minimally painful but no neck tenderness. He has had negative stress test 1 year before but not for the same reasons and so far there is no evidence of any heart attack during this admission. Will get a CT scan of the cervical spine to rule out any degenerative disc disease and will have a full progress note tomorrow. Dr Dennis Saeed
[2025-01-22 16:03] VITALS: O2SAT 97
--- NOTE | 2025-01-22 16:06 | CT Scan Report ---
INDICATION: Neck pain with radiculopathy. COMPARISON: No relevant priors available TECHNIQUE: Axial CT images of the cervical spine were obtained without IV contrast administration. Coronal and sagittal reformations were reviewed. FINDINGS: Cervical vertebral body heights and alignment are maintained. No acute fracture or traumatic subluxation. Mild disc space narrowing at lower cervical levels. No significant central canal narrowing. Neck soft tissues and lung apices appear grossly unremarkable. IMPRESSION: No acute fracture. Mild disc space narrowing at lower cervical levels. No significant central canal narrowing. Follow-up with MRI as clinically relevant. Electronically signed by Aldo Escalante 01-22-2025 4:06 PM
[2025-01-22 19:18] VITALS: BP 117/74; TEMP 97.5
[2025-01-22] MEDS: DULoxetine HCL 20 MG CAP PO STA (19:45)
[2025-01-22] MEDS: DULoxetine HCL 20 MG CAP PO SCH (19:45)
[2025-01-22 19:53] VITALS: PULSE 70
[2025-01-22] MEDS ORDERED: DICLOFENAC SOD 1% GEL 100 GM TUBE EXT SCH (21:00)
--- NOTE | 2025-01-23 07:29 | Discharge Summary ---
Date of Service January 23, 2025 Admission HPI Per Admitting Provider 29-year-old male with past medical history significant for SVT, GERD, history of aortic root repair, history of pericarditis, chronic atypical chest pain, history of intermittent dizziness/presyncope comes with chest pain. Patient states having chest tightness going on for last 2 weeks but getting more progressively worse. The chest tightness located in center of chest and radiate to the left arm. Sometimes in the morning he gets up with numbness in left hand but that improves after some time. The chest tightness seems to come on its own but sometimes it comes with rigorous activity. Has some blurred visions. Denies any shortness of breath. No nausea. No sweating. No cough. No runny nose or sore throat. Afebrile. Currently no headache. Appetite is okay. No abdominal pain. Normal bowel and bladder movements. Currently resting comfortably and hemodynamically stable. Past medical history. As mentioned above Past surgical history. Ascending aortic graft with cardiac bypass. Partial mastectomy on right side. Pericardiocentesis. Tonsillectomy and adenoidectomy. Social history. . Chews tobacco. Alcohol once a month or so. No drug use. Family history. No known problems per [facility] Principal Diagnosis Atypical chest pain Discharge Data Allergies Allergy/AdvReac Type Severity Reaction Status Date / Time No Known Allergies Allergy Verified 06/01/24 20:34 Consultations 01/22/25 05:33 ED Decision to Admit Stat 01/22/25 08:02 Consult Cardiology Routine Ordered Studies 01/22/25 15:27 CT neck [CT cervical spine wo con] Urgent Hospital Course (1) Chest pain: 29-year-old male with past medical history significant for SVT, GERD, history of aortic root repair, history of pericarditis, chronic atypical chest pain, history of intermittent dizziness/presyncope comes with chest pain. Patient states having chest tightness going on for last 2 weeks but getting more progressively worse. The chest tightness located in center of chest and radiate to the left arm. Sometimes in the morning he gets up with numbness in left hand but that improves after some time. The chest tightness seems to come on its own but sometimes it comes with rigorous activity. Has some blurred visions. Denies any shortness of breath. No nausea. No sweating. No cough. No runny nose or sore throat. Afebrile. Currently no headache. Appetite is okay. No abdominal pain. Normal bowel and bladder movements. Currently resting comfortably and hemodynamically stable. Chest pain Initial troponin and EKG unremarkable Will follow serial enzymes and echo and repeat ekg Observe on telemetry Continue home aspirin Cardiac consult in a.m. for further recommendations History of ascending aortic aneurysm 7.4 cm with dilated aortic root Status post valve sparing surgery with aortic root and ascending aortic aneurysm repair in July 2022. History of viral pericarditis requiring pericardiocentesis several weeks after surgery without recurrence History of paroxysmal SVT History of sinus bradycardia and intolerant to beta-blockers Will monitor Thrombocytopenia Platelets 126 Platelets seems usually in 130s and 140 range Follow-up Leukopenia Seems chronic follow-up DVT prophylaxis SCDs Disposition Observation med/telemetry Full code. Total Time Total Time Spent Total Time Spent (In Minutes): 20 minutes Discharge Plan Discharge Items Patient Disposition: Home - Self-Care Reason For Visit: CHEST PAIN Discharge Diagnosis: atypical chest pain Condition on Discharge: Good Activity: Resume your previous activity Non-emergency contact: Primary Care Provider Call non-emergency contact if: you have any medication questions, your symptoms worsen and your pain is concerning for you Follow-up/Referrals: Lavelle Izquierdo MD [Primary Care Provider] - Diet: Heart Healthy Addtl Attending Provider Instructions: Followup with PCP in one Week Followup with cardiology in 4-6 weeks your platelets have been low. Followup repeat labs CBC with diff with PCP in 1- 2 WEEKS Pending Studies at Discharge: No Stand-Alone Forms: My [employer], Smoking Cessation Medications and DC Order Prescriptions: New duloxetine [Cymbalta] 20 mg Capsule,Delayed Release(Dr/Ec) 20 mg PO HS Qty: 30 0RF Continued aspirin 81 mg Tablet,Delayed Release (Dr/Ec) 81 mg PO DAILY multivitamin with minerals Tablet 1 tab PO DAILY Discharge Orders: Discharge Order (Routine); Ordered 01/22/25 Ordered By: Heri Young Admission Data Admit Date/Time: 01/22/25 06:13 Attending Provider: Clifford Saeed Admit Provider: Heri Young Primary Care Provider: Lavelle Izquierdo Other Providers: Heri Young; [place],Hai J Other Interventions: Discharge Summary Assessment (RN) Last Done: 01/22/25 19:50
--- NOTE | 2025-01-23 07:58 | Discharge Summary ---
Date of Service January 23, 2025 Admission HPI Per Admitting Provider 29-year-old male with past medical history significant for SVT, GERD, history of aortic root repair, history of pericarditis, chronic atypical chest pain, history of intermittent dizziness/presyncope comes with chest pain. Patient states having chest tightness going on for last 2 weeks but getting more progressively worse. The chest tightness located in center of chest and radiate to the left arm. Sometimes in the morning he gets up with numbness in left hand but that improves after some time. The chest tightness seems to come on its own but sometimes it comes with rigorous activity. Has some blurred visions. Denies any shortness of breath. No nausea. No sweating. No cough. No runny nose or sore throat. Afebrile. Currently no headache. Appetite is okay. No abdominal pain. Normal bowel and bladder movements. Currently resting comfortably and hemodynamically stable. Past medical history. As mentioned above Past surgical history. Ascending aortic graft with cardiac bypass. Partial mastectomy on right side. Pericardiocentesis. Tonsillectomy and adenoidectomy. Social history. . Chews tobacco. Alcohol once a month or so. No drug use. Family history. No known problems per [facility] Principal Diagnosis chest pain Discharge Data Allergies Allergy/AdvReac Type Severity Reaction Status Date / Time No Known Allergies Allergy Verified 06/01/24 20:34 Consultations 01/22/25 05:33 ED Decision to Admit Stat 01/22/25 08:02 Consult Cardiology Routine ECHO: Echocardiogram performed today revealed mild concentric left ventricular hypertrophy, normal LVEF in the range of 55 to 60%, no significant valvular disease. Aortic root is borderline dilated 3.6 cm, the ascending aorta is normal size to borderline dilated at 3.5 to 3.8 cm depending on where the measurement is obtained. No pericardial effusion noted. These findings are unchanged compared to his previous outpatient study dated 11/26/2024. Ordered Studies Laboratory Results WBC 3.43 K/ul (4.8-10.8) L 01/22/25 04:41 RBC 5.01 M/uL (4.70-6.10) 01/22/25 04:41 Hgb 15.0 g/dl (14.0-18.0) 01/22/25 04:41 Hct 43.0 % (42.0-52.0) 01/22/25 04:41 MCV 85.8 fL (80.0-100.0) 01/22/25 04:41 MCH 29.9 pg (25.0-34.0) 01/22/25 04:41 MCHC 34.9 g/dL (32.0-36.0) 01/22/25 04:41 RDW Std Deviation 37.9 fL (36.4-46.3) 01/22/25 04:41 RDW Coeff of Juany 12.1 % (11.5-14.5) 01/22/25 04:41 Plt Count 126 K/uL (130-400) L 01/22/25 04:41 MPV 10.8 fL (9.4-12.4) 01/22/25 04:41 Immature Gran % (Auto) 0.0 % 01/22/25 04:41 Neut % (Auto) 37.9 % 01/22/25 04:41 Lymph % (Auto) 47.2 % 01/22/25 04:41 [place] % (Auto) 13.4 % 01/22/25 04:41 Eos % (Auto) 1.2 % 01/22/25 04:41 Baso % (Auto) 0.3 % 01/22/25 04:41 Neut # (Auto) 1.30 K/uL (1.40-6.50) L 01/22/25 04:41 Lymph # (Auto) 1.62 K/uL (1.20-3.40) 01/22/25 04:41 [place] # (Auto) 0.46 K/uL (0.11-0.59) 01/22/25 04:41 Eos # (Auto) 0.04 K/uL (0.00-0.50) 01/22/25 04:41 Baso # (Auto) 0.01 K/uL (0.00-0.20) 01/22/25 04:41 Immature Gran # (Auto) 0.00 K/uL (0.01-0.20) L 01/22/25 04:41 Sodium 140 mmol/L (136-145) 01/22/25 04:41 Potassium 3.9 mmol/L (3.5-5.1) 01/22/25 04:41 Chloride 106 mmol/L (98-107) 01/22/25 04:41 Carbon Dioxide 31 mmol/L (21-32) 01/22/25 04:41 Anion Gap 3 (3-11) 01/22/25 04:41 BUN 20 mg/dl (6-23) 01/22/25 04:41 Creatinine 0.87 mg/dl (0.6-1.4) 01/22/25 04:41 Est Cr Clr Drug Dosing 163.0 ml/min 01/22/25 04:41 eGFR 119.04 01/22/25 04:41 BUN/Creatinine Ratio 23.0 (10-20) H 01/22/25 04:41 Glucose 93 mg/dl (70-99(Fasting)) 01/22/25 04:41 Calcium 9.2 mg/dl (8.6-10.3) 01/22/25 04:41 Total Bilirubin 0.4 mg/dl (0.2-1.0) 01/22/25 04:41 AST 21 U/L (13-39) 01/22/25 04:41 ALT 17 U/L (7-52) 01/22/25 04:41 Alkaline Phosphatase 40 U/L (34-104) 01/22/25 04:41 Troponin I High Sens < 2.3 pg/ml (0-20) 01/22/25 14:39 Total Protein 7.9 gm/dl (6.0-8.3) 01/22/25 04:41 Albumin 4.5 gm/dl (3.4-5.0) 01/22/25 04:41 Globulin 3.4 gm/dl (2.5-4.0) 01/22/25 04:41 Albumin/Globulin Ratio 1.3 (0.9-2) 01/22/25 04:41 Lipase 26 U/L (11-82) 01/22/25 04:41 Impressions Chest X-Ray 01/22/25 04:41 EXAM: XR chest 1V portable CLINICAL HISTORY: Left sided chest pain that radiates into shoulder and down left arm. history of aortic aneurysm TECHNIQUE: An X-ray image of the chest is obtained in AP projection. COMPARISON: 11/16/2024. FINDINGS: Pulmonary Parenchyma: Lungs are clear bilaterally. No evidence of consolidation, collapse, or focal opacities. No pulmonary nodules are identified. No evidence of pleural effusion or pleural thickening. Heart and Mediastinum: Heart size and shape are normal. No mediastinal widening or masses. No hilar or mediastinal lymphadenopathy. Bony Thorax: Evidence of previous sternotomy. Soft Tissues: Soft tissues overlying the chest wall are unremarkable. IMPRESSION: 1. Evidence of previous sternotomy. 2. Otherwise, normal chest X-ray. No acute cardiopulmonary abnormalities are identified. 3. No time interval significant radiological changes. Electronically signed by Cali Hammer 01-22-2025 05:[address] 01/22/25 15:27 INDICATION: Neck pain with radiculopathy. COMPARISON: No relevant priors available TECHNIQUE: Axial CT images of the cervical spine were obtained without IV contrast administration. Coronal and sagittal reformations were reviewed. FINDINGS: Cervical vertebral body heights and alignment are maintained. No acute fracture or traumatic subluxation. Mild disc space narrowing at lower cervical levels. No significant central canal narrowing. Neck soft tissues and lung apices appear grossly unremarkable. IMPRESSION: No acute fracture. Mild disc space narrowing at lower cervical levels. No significant central canal narrowing. Follow-up with MRI as clinically relevant. Electronically signed by Aldo Escalante 01-22-2025 4:06 PM 01/22/25 15:27 CT neck [CT cervical spine wo con] Urgent Hospital Course (1) Chest pain: 1) Chest pain: Plan: 29-year-old male with past medical history significant for SVT, GERD, history of aortic root repair, history of pericarditis, chronic atypical chest pain, history of intermittent dizziness/presyncope comes with chest pain. Patient states having chest tightness going on for last 2 weeks but getting more progressively worse. The chest tightness located in center of chest and radiate to the left arm. Sometimes in the morning he gets up with numbness in left hand but that improves after some time. The chest tightness seems to come on its own but sometimes it comes with rigorous activity. Has some blurred visions. Denies any shortness of breath. No nausea. No sweating. No cough. No runny nose or sore throat. Afebrile. Currently no headache. Appetite is okay. No abdominal pain. Normal bowel and bladder movements. Currently resting comfor tably and hemodynamically stable. Chest pain serial troponin and EKG unremarkable echo:Echocardiogram performed today and interpreted independently revealed mild concentric left ventricular hypertrophy, normal LVEF in the range of 55 to 60%, no significant valvular disease. Aortic root is borderline dilated 3.6 cm, the ascending aorta is normal size to borderline dilated at 3.5 to 3.8 cm depending on where the measurement is obtained. No pericardial effusion noted. These findings are unchanged compared to his previous outpatient study dated 11/26/2024. 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 History of ascending aortic aneurysm 7.4 cm with dilated aortic root Status post valve sparing surgery with aortic root and ascending aortic aneurysm repair in July 2022. History of viral pericarditis requiring pericardiocentesis several weeks after surgery without recurrence History of paroxysmal SVT History of sinus bradycardia and intolerant to beta-blockers Will monitor Thrombocytopenia Platelets 126 Platelets seems usually in 130s and 140 range Follow-up Leukopenia Seems chronic follow-up Discharged home to followup with PCP and Cardiology. Total Time Total Time Spent Total Time Spent (In Minutes): 30minutes Discharge Plan Discharge Items Patient Disposition: Home - Self-Care Reason For Visit: CHEST PAIN Discharge Diagnosis: atypical chest pain Condition on Discharge: Good Activity: Resume your previous activity Non-emergency contact: Primary Care Provider Call non-emergency contact if: you have any medication questions, your symptoms worsen and your pain is concerning for you Follow-up/Referrals: Lavelle Izquierdo MD [Primary Care Provider] - Diet: Heart Healthy Addtl Attending Provider Instructions: Followup with PCP in one Week Followup with cardiology in 4-6 weeks your platelets have been low. Followup repeat labs CBC with diff with PCP in 1- 2 WEEKS Pending Studies at Discharge: No Stand-Alone Forms: My [facility] [employer], Smoking Cessation Medications and DC Order Prescriptions: New duloxetine [Cymbalta] 20 mg Capsule,Delayed Release(Dr/Ec) 20 mg PO HS Qty: 30 0RF Continued aspirin 81 mg Tablet,Delayed Release (Dr/Ec) 81 mg PO DAILY multivitamin with minerals Tablet 1 tab PO DAILY Discharge Orders: Discharge Order (Routine); Ordered 01/22/25 Ordered By: Heri Young Admission Data Admit Date/Time: 01/22/25 06:13 Attending Provider: Clifford Saeed Admit Provider: Heri Young Primary Care Provider: Lavelle Izquierdo Other Providers: Heri Young; Hai Sumner Other Interventions: Discharge Summary Assessment (RN) Last Done: 01/22/25 19:50
--- NOTE | 2025-01-23 13:50 | Electrocardiogram Report ---
Test Reason : Blood Pressure : */* mmHG Vent. Rate : 61 BPM Atrial Rate : 61 BPM P-R Int : 192 ms QRS Dur : 116 ms QT Int : 418 ms P-R-T Axes : 43 -15 8 degrees QTcB Int : 420 ms Normal sinus rhythm Incomplete right bundle branch block Inferior infarct (cited on or before 21-Aug-2024) Abnormal ECG When compared with ECG of 22-Jan-2025 08:27, (unconfirmed) T wave inversion less evident in Inferior leads Confirmed by Eloise Griffiths ([id number]) on 01/23/2025 1:49:58 PM Referred By: REFERRED SELF Confirmed By: Eloise Griffiths
--- NOTE | 2025-01-23 13:50 | Electrocardiogram Report ---
Test Reason : Blood Pressure : */* mmHG Vent. Rate : 61 BPM Atrial Rate : 61 BPM P-R Int : 188 ms QRS Dur : 110 ms QT Int : 404 ms P-R-T Axes : * -27 -25 degrees QTcB Int : 406 ms Sinus rhythm with Fusion complexes Low voltage QRS Incomplete right bundle branch block Inferior infarct , age undetermined Cannot rule out Anterior infarct (cited on or before 22-Jan-2025) Abnormal ECG When compared with ECG of 22-Jan-2025 04:40, Inferior infarct is now Present T wave inversion now evident in Inferior leads Confirmed by Eloise Griffiths ([place]) on 01/23/2025 1:49:41 PM Referred By: REFERRED SELF Confirmed By: Eloise Griffiths
== END 2025-01-22 20:04 | disposition home or self-care (01) ==
LOC: ED 04:31 → 2N 04:31 → SUATTDRO 06:13 → 2N 07:27